=== PATIENT | male | born 1955 | race Caucasian/White ===

== ENCOUNTER 2024-11-27 23:12 | Emergency (ER) | payer OTHER ==
[2024-11-27] MEDS ORDERED: WATER FOR INJ,STERILE 10 ML ONE (23:15)
[2024-11-27] MEDS ORDERED: ZIPRASIDONE MESYLA 20 MG/VIAL IM ONE (23:15)
--- OUTSIDE RECORDS SUMMARY | 2024-11-27 23:17 | XMS REPORT | Continuity of Care Document ---
Author Name Unknown Address [address] [facility] [address] [place] [address] [facility] Address [address] [facility] [address] [place] [address] Care Team Providers Care Lubrication Servicer Name Role Phone Pcp, Pcp Primary Care Physician Unavailab OBEY Tafoya Attending Clinician Unavail able Saba Miller MD, Vincent Wood Attending Clinic isela Mark COLBERT, Chriss Attending Clinician + Peri Chilel MD Attending Clinician Obey Pineda MD Attending Clinician [phone] Vinicius Francois Rahil Attending Clinician Unavail able Tariq Martinez Attending Clinician Unavailable PERI CHILEL Admitting Clinician Un available Peri Chilel MD Admitting Clinician [facility] Rahil Admitting Clinician Unavail able Tariq Martinez Admitting Clinician Unavailable Payers Payer Name Policy Type Policy Number Effective Date Expirati on Date Source [employer] [id number] 2024 00:00:00 [facility] [id number] Problems Condition Name Condition Details Condition Category Status Onset Date Resolution Date Last Treatment Date Treating Clinician Comments Source Toxic metabolic encephalop athy Toxic metabolic encephalop athy Disease Active 11-13 00:00: 00 Sathish Stratton 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 Disease Active 11-13 00:00: 00 Sathish Stratton Dementia with behavioral disturbanc e Dementia with behavioral disturbanc e Disease Active 11-07 00:00: 00 Sathish Stratton Complicate d UTI (urinary tract infection) Complicate d UTI (urinary tract infection) Disease Active 11-07 00:00: 00 Sathish Stratton Corneal ulcer Corneal ulcer Disease Active 11-06 00:00: 00 Sathish Stratton Gastroesop hageal reflux disease Gastroesop hageal reflux disease Disease Active 11-06 00:00: 00 Sathish Strtaton History of CVA (cerebrova scular accident) History of CVA (cerebrova scular accident) Disease Active 11-06 00:00: 00 Sathish Stratton Essential hypertensi on Essential hypertensi on Disease Active 09-20 00:00: 00 Sathish Stratton Peripheral vascular disease Peripheral vascular disease Disease Active 09-20 00:00: 00 Sathish Stratton Hypopyon of right eye Hypopyon of right eye Disease Resolve d 11-07 00:00: 00 2024-11-13 00:00:00 2024-11-13 16:00:02 Sathish Stratton Medication management Medication management Disease Resolve d 11-06 00:00: 00 2024-11-13 00:00:00 2024-11-13 16:00:07 Sathish Stratton ETOH abuse ETOH abuse Disease Resolve d 09-20 00:00: 00 2024-11-13 00:00:00 2024-11-13 15:59:58 Sathish Stratton Allergies, Adverse Reactions, Alerts Allergy Name Allergy Type Status Severity Reaction(s) Onset Date Inactive Date Treating Clinician Comments Source No Known Allergie s DA Active U 2015-04 015 00:00: 00 [facility] Social History Social Habit Start Date Stop Date Quantity Comments Source Gender identity 2024-08-30 09:31:17 Irina Stratton Sexual orientation [facility] Alcoholic beverage intake 2024-11-14 00:00:00 2024-11-14 00:00:00 [facility] Alcohol Comment 2024-11-08 00:00:00 2024-11-08 00:00:00 pt so confused and speech was incomprehensible [facility] History of Social function 2024-11-06 00:00:00 2024-11-06 00:00:00 [facility] Sex 2024-09-03 12:39:14 2024-09-03 12:39:14 Male (finding) [facility] Smoking Status Start Date Stop Date Source Tobacco smoking consumption unknown [facility] Medications Ordered Medication Name Filled Medication Name Start Date Stop Date Current Medication? Ordering Clinician Indication Dosage Frequency Signature (SIG) Comments Components Source omeprazole (PriLOSEC) [address] capsule omeprazole (PriLOSEC) [address] capsule 11-14 15:51: 49 11-14 00:00 :00 No 20mg Take 20 mg by mouth in the morning. Take before meals. Sathish burgos [facility] magnesium oxide (Mag-Ox) 400 (240 Mg) MG tablet magnesium oxide (Mag-Ox) 400 (240 Mg) MG tablet 11-14 15:51: 49 11-14 00:00 :00 No 400mg Q.5D Take 400 mg by mouth in the morning and 400 mg in the evening. Sathish [facility] ciprofloxac in (Ciloxan) 0.3 % ophthalmic solution ciprofloxac in (Ciloxan) 0.3 % ophthalmic solution 11-14 15:51: 49 11-14 00:00 :00 No 2[drp] Q4H Administer 2 drops into affected eye(s) every 4 hours. Sathish [facility] neomycin-po lymyxin-dex AMETHasone (Maxitrol) 0.1 % ophthalmic suspension neomycin-po lymyxin-dex AMETHasone (Maxitrol) 0.1 % ophthalmic suspension 11-14 15:51: 49 11-14 00:00 :00 No 1[drp] Q4H Administer 1 drop into the right eye every 4 hours. Sathish Hunt [facility] enoxaparin (Lovenox) 40 mg/0.4mL injection enoxaparin (Lovenox) 40 mg/0.4mL injection 11-14 15:51: 49 11-14 00:00 :00 No 40mg QD Inject 40 mg under the skin 1 time each day. Sathish Stratton LORazepam (Ativan) 1 MG tablet LORazepam (Ativan) 1 MG tablet 11-14 15:51: 49 11-14 00:00 :00 No 1mg Q.5D Take 1 mg by mouth in the morning and 1 mg in the evening. Sathish Stratton megestrol (Megace) 40 MG tablet megestrol (Megace) 40 MG tablet 11-14 15:51: 49 11-14 00:00 :00 No 40mg Q.5D Take 40 mg by mouth 2 times a day. Sathish Stratton nystatin (Nystop) [id number] UNIT/GM powder nystatin (Nystop) [id number] UNIT/GM powder 11-14 15:51: 49 11-14 00:00 :00 No 1{appli cation} Q.5D Apply 1 Applicatio n topically in the morning and 1 Applicatio n in the evening. To Groin. Sathish Stratton acetaminoph en (Tylenol) 325 MG tablet acetaminoph en (Tylenol) 325 MG tablet 11-14 15:51: 49 11-14 00:00 :00 No 325mg Q4H Take 325 mg by mouth every 4 hours if needed for fever. Sathish Stratton melatonin 3 MG tablet melatonin 3 MG tablet 11-14 15:51: 45 Yes 3mg QD Take 3 mg by mouth as needed at bedtime for sleep. Sathish Stratton lamoTRIgine (LaMICtal) 50 mg half tablet lamoTRIgine (LaMICtal) 50 mg half tablet 11-14 15:51: 45 Yes 50mg Q.5D Take 50 mg by mouth in the morning and 50 mg in the evening. Sathish Stratton gabapentin (Neurontin) 300 MG capsule gabapentin (Neurontin) 300 MG capsule 11-14 15:51: 45 Yes 300mg Q.5D Take 300 mg by mouth in the morning and 300 mg in the evening. Sathish Stratton acetaminoph en (Tylenol 8 Hour) 650 MG ER tablet acetaminoph en (Tylenol 8 Hour) 650 MG ER tablet 11-14 15:51: 45 Yes 650mg Q4H Take 650 mg by mouth every 4 hours if needed for mild pain (1-3). Do not crush, chew, or split. Sathish Stratton OLANZapine (ZyPREXA) 5 mg in sterile water injection OLANZapine (ZyPREXA) 5 mg in sterile water injection 11-14 00:15: 00 11-14 00:37 :00 No 5mg 5 mg, Intramuscu lar, Once, On Mon11/14/24 at 0015, For 1 dose, Each 10 mg vial to be reconstitu shweta with 2.1 mL sterile water for injection to give a concentrat ion of approx 5 mg/mL. Use immediatel y. Discard unused portion. Sathish Stratton losartan (Cozaar) 50 MG tablet losartan (Cozaar) 50 MG tablet 11-14 00:00: 00 12-14 23:59 :00 No 50mg QD Take 1 tablet by mouth 1 time each day. Sathish Stratton atropine 1 % ophthalmic solution atropine 1 % ophthalmic solution 11-14 00:00: 00 12-14 23:59 :00 No 1[drp] Q.5D Administer 1 drop into the right eye in the morning and 1 drop in the evening. Sathish Stratton dorzolamide -timolol (Cosopt) 2-0.5 % ophthalmic solution dorzolamide -timolol (Cosopt) 2-0.5 % ophthalmic solution 11-14 00:00: 00 12-14 23:59 :00 No 1[drp] Q.5D Administer 1 drop into both eyes in the morning and 1 drop in the evening. Sathish Stratton moxifloxaci n (Vigamox) 0.5 % ophthalmic solution moxifloxaci n (Vigamox) 0.5 % ophthalmic solution 11-14 00:00: 00 11-24 23:59 :00 No 1[drp] Q6H Administer 1 drop into the right eye in the morning and 1 drop at noon and 1 drop in the evening and 1 drop before bedtime. Do all this for 10 days. Sathish Stratton tobramycin 0.3 % solution 5 mL with tobramycin 80 MG/2ML solution 80 mg tobramycin 0.3 % solution 5 mL with tobramycin 80 MG/2ML solution 80 mg 11-14 00:00: 00 11-24 23:59 :00 No [id number] 1[drp] Q6H Administer 1 drop into the right eye in the morning and 1 drop at noon and 1 drop in the evening and 1 drop before bedtime. Do all this for 10 days. Sathish Stratton vancomycin (Vancocin) 50 mg/mL ophthalmic solution vancomycin (Vancocin) 50 mg/mL ophthalmic solution 11-14 00:00: 00 11-24 23:59 :00 No 1[drp] Q6H Administer 1 drop into affected eye(s) in the morning and 1 drop at noon and 1 drop in the evening and 1 drop before bedtime. Do all this for 10 days. Sathish Stratton erythromyci n (Romycin) 5 mg/g ophthalmic ointment erythromyci n (Romycin) 5 mg/g ophthalmic ointment 11-14 00:00: 00 11-21 23:59 :00 No 1{appli cation} Q.25D Apply 1 Applicatio n to right eye in the morning and 1 Applicatio n at noon and 1 Applicatio n in the evening and 1 Applicatio n before bedtime. Do all this for 28 doses. Apply Amount per Dose: 0.5 inch (~1 cm) per dose. Sathish Stratton OLANZapine (ZyPREXA) 5 mg in sterile water injection OLANZapine (ZyPREXA) 5 mg in sterile water injection 11-12 16:00: 00 11-12 23:09 :00 No 5mg 5 mg, Intramuscu lar, Once, On Mon11/12/24 at 1600, For 1 dose, Each 10 mg vial to be reconstitu shweta with 2.1 mL sterile water for injection to give a concentrat ion of approx 5 mg/mL. Use immediatel y. Discard unused portion. Sathish Stratton OLANZapine (ZyPREXA) 10 mg in sterile water injection OLANZapine (ZyPREXA) 10 mg in sterile water injection 11-11 22:15: 00 11-11 22:47 :00 No 10mg 10 mg, Intramuscu lar, Once, On Mon11/11/24 at 2215, For 1 dose, Each 10 mg vial to be reconstitu shweta with 2.1 mL sterile water for injection to give a concentrat ion of approx 5 mg/mL. Use immediatel y. Discard unused portion. Sathish Stratton phenazopyri dine (Pyridium) tablet 200 mg phenazopyri dine (Pyridium) tablet 200 mg 11-11 21:30: 00 11-11 21:53 :00 No 200mg 200 mg, Oral, Once, On Mon11/11/24 at 2130, For 1 dose Sathish Stratton ibuprofen tablet 800 mg ibuprofen tablet 800 mg 11-11 21:00: 00 11-11 21:53 :00 No 800mg 800 mg, Oral, Once, On Mon11/11/24 at 2100, For 1 dose Sathish Stratton tobramycin 13.57 mg/mL ophthalmic solution tobramycin 13.57 mg/mL ophthalmic solution 11-11 16:00: 00 Yes 1[drp] Q3H 1 drop, Right Eye, Every 3 hours, First dose (after last modificati on) on Mon11/11/24 at 1600, Suspected Indication (Select all that apply): Skin/Soft Tissue Infection Sathish Stratton vancomycin (Vancocin) 50 mg/mL ophthalmic solution 1 drop vancomycin (Vancocin) 50 mg/mL ophthalmic solution 1 drop 11-11 16:00: 00 Yes 1[drp] Q3H 1 drop, Right Eye, Every 3 hours, First dose (after last modificati on) on Mon11/11/24 at 1600, Please notify pharmacy 2 hours in advance of next dose needed. Sathish Stratton moxifloxaci n (Vigamox) 0.5 % ophthalmic solution 1 drop moxifloxaci n (Vigamox) 0.5 % ophthalmic solution 1 drop 11-11 16:00: 00 Yes 1[drp] Q3H 1 drop, Right Eye, Every 3 hours, First dose (after last modificati on) on Mon11/11/24 at 1600, Please notify pharmacy 2 hours in advance of next dose needed. Sathish Hunt [facility] OLANZapine (ZyPREXA) tablet 5 mg OLANZapine (ZyPREXA) tablet 5 mg 11-11 13:45: 00 11-11 14:18 :00 No 5mg 5 mg, Oral, Once, On Mon11/11/24 at 1345, For 1 dose Sathish Hunt [facility] OLANZapine (ZyPREXA) tablet 5 mg OLANZapine (ZyPREXA) tablet 5 mg 11-10 16:30: 00 11-10 16:25 :00 No 5mg 5 mg, Oral, Once, On Mon11/10/24 at 1630, For 1 dose Sathish Hunt [facility] dorzolamide -timolol (Cosopt) 2-0.5 % ophthalmic solution 1 drop dorzolamide -timolol (Cosopt) 2-0.5 % ophthalmic solution 1 drop 11-08 17:00: 00 Yes 1[drp] Q.5D 1 drop, Both Eyes, 2 times daily, First dose (after last modificati on) on Mon11/08/24 at 1700, Please notify pharmacy 2 hours in advance of next dose needed. Sathish Hunt [facility] sulfamethox azole-trime thoprim (Bactrim DS) 800-160 MG per tablet 160 mg sulfamethox azole-trime thoprim (Bactrim DS) 800-160 MG per tablet 160 mg 11-08 14:00: 00 11-13 16:05 :40 No 160mg Q12H 160 mg, Oral, Every 12 hours, First dose on Mon11/08/24 at 1400, For 15 doses, Suspected Indication (Select all that apply): Urinary Tract Infection Sathish Hunt [facility] thiamine (Vitamin B-1) tablet 100 mg thiamine (Vitamin B-1) tablet 100 mg 11-08 13:00: 00 Yes 100mg QD 100 mg, Oral, Daily, First dose (after last reorder) on Mon11/08/24 at 1300 Sathish Stratton erythromyci n (Romycin) 5 mg/g ophthalmic ointment 1 Application erythromyci n (Romycin) 5 mg/g ophthalmic ointment 1 Application 11-08 13:00: 00 11-21 12:59 :00 No 1{appli cation} Q.25D 1 Applicatio n, Right Eye, 4 times daily, First dose on Mon11/08/24 at 1300, For 52 doses, Apply Amount per Dose: 0.5 inch (~1 cm) per dose. Sathish Stratton tobramycin 13.57 mg/mL ophthalmic solution tobramycin 13.57 mg/mL ophthalmic solution 11-08 13:00: 00 11-11 14:56 :40 No 1[drp] Q2H 1 drop, Right Eye, Every 2 hours, First dose on Mon11/08/24 at 1300, Suspected Indication (Select all that apply): Skin/Soft Tissue Infection Sathish Stratton vancomycin (Vancocin) 50 mg/mL ophthalmic solution 1 drop vancomycin (Vancocin) 50 mg/mL ophthalmic solution 1 drop 11-08 13:00: 00 11-11 14:56 :40 No 1[drp] Q2H 1 drop, Right Eye, Every 2 hours, First dose (after last modificati on) on Mon11/08/24 at 1300, Please notify pharmacy 2 hours in advance of next dose needed. Sathish Stratton moxifloxaci n (Vigamox) 0.5 % ophthalmic solution 1 drop moxifloxaci n (Vigamox) 0.5 % ophthalmic solution 1 drop 11-08 13:00: 00 11-11 14:55 :56 No 1[drp] Q2H 1 drop, Right Eye, Every 2 hours, First dose (after last modificati on) on Mon11/08/24 at 1300, Please notify pharmacy 2 hours in advance of next dose needed. Sathish Stratton dorzolamide -timolol (Cosopt) 2-0.5 % ophthalmic solution 1 drop dorzolamide -timolol (Cosopt) 2-0.5 % ophthalmic solution 1 drop 11-07 17:00: 00 11-08 11:58 :16 No 1[drp] Q.5D 1 drop, Right Eye, 2 times daily, First dose on Mon11/07/24 at 1700 Sathish Stratton ciprofloxac in (Cipro) tablet 500 mg ciprofloxac in (Cipro) tablet 500 mg 11-07 13:00: 00 11-12 15:26 :50 No 500mg Q.5D 500 mg, Oral, Every 12 hours scheduled, First dose on Mon11/07/24 at 1300, For 7 days, Separate at least 2 hours before or 6 hours after antacids or other products containing calcium, iron, or zinc., Suspected Indication (Select all that apply): Urinary Tract Infection, On hold since Mon11/08/2024 at 1353 until manually unheld Sathish Stratton OLANZapine (ZyPREXA) 5 mg in sterile water injection OLANZapine (ZyPREXA) 5 mg in sterile water injection 11-07 08:15: 00 11-07 08:15 :00 No 5mg 5 mg, Intramuscu lar, Once, On Mon11/07/24 at 0815, For 1 dose, Each 10 mg vial to be reconstitu shweta with 2.1 mL sterile water for injection to give a concentrat ion of approx 5 mg/mL. Use immediatel y. Discard unused portion. Sathish Stratton QUEtiapine (SEROquel) tablet 25 mg QUEtiapine (SEROquel) tablet 25 mg 11-06 21:00: 00 Yes 25mg 25 mg, Oral, Nightly, First dose on Mon11/06/24 at 2100 Sathish Stratton OLANZapine (ZyPREXA) tablet 5 mg OLANZapine (ZyPREXA) tablet 5 mg 11-06 11:30: 00 11-06 13:23 :00 No 5mg 5 mg, Oral, Once, On Mon11/06/24 at 1130, For 1 dose Sathish Stratton sodium chloride (NS) 0.9 % flush 10 mL sodium chloride (NS) 0.9 % flush 10 mL 11-06 09:00: 00 Yes 10mL Q.5D 10 mL, Intravenou s, Every 12 hours scheduled, First dose on Mon11/06/24 at 0900, Administer at least once every [facility] tamsulosin (Flomax) 24 hr capsule 0.4 mg tamsulosin (Flomax) 24 hr capsule 0.4 mg 11-06 09:00: 00 Yes .4mg QD 0.4 mg, Oral, Daily, First dose on Mon11/06/24 at 0900 [facility] losartan (Cozaar) tablet 50 mg losartan (Cozaar) tablet 50 mg 11-06 09:00: 00 Yes 50mg QD 50 mg, Oral, Daily, First dose on Mon11/06/24 at 0900 [facility] folic acid (Folvite) tablet 1 mg folic acid (Folvite) tablet 1 mg 11-06 09:00: 00 Yes 1mg QD 1 mg, Oral, Daily, First dose on Mon11/06/24 at 0900 [facility] clopidogrel (Plavix) tablet 75 mg clopidogrel (Plavix) tablet 75 mg 11-06 09:00: 00 Yes 75mg QD 75 mg, Oral, Daily, First dose on Mon11/06/24 at 0900 [facility] atorvastati n (Lipitor) tablet 40 mg atorvastati n (Lipitor) tablet 40 mg 11-06 09:00: 00 Yes 40mg QD 40 mg, Oral, Daily, First dose on Mon11/06/24 at 0900 [facility] amLODIPine (Norvasc) tablet 5 mg amLODIPine (Norvasc) tablet 5 mg 11-06 09:00: 00 Yes 5mg QD 5 mg, Oral, Daily, First dose on Mon11/06/24 at 0900 [facility] valACYclovi r (Valtrex) tablet 1,000 mg valACYclovi r (Valtrex) tablet 1,000 mg 11-06 09:00: 00 11-12 23:59 :00 No 1000mg [id number] 3D 1,000 mg, Oral, 3 times daily, First dose on Mon11/06/24 at 0900, For 21 doses, Infection Site: Retinitis [facility] thiamine (Vitamin B-1) tablet 100 mg thiamine (Vitamin B-1) tablet 100 mg 11-06 09:00: 00 11-08 12:48 :14 No 100mg QD 100 mg, Oral, Daily, First dose on Mon11/06/24 at 0900 [facility] aspirin chewable tablet 81 mg aspirin chewable tablet 81 mg 11-06 07:00: 00 Yes 81mg 81 mg, Oral, Every morning, First dose on Mon11/06/24 at 0700 [facility] senna-docus ate (Nimisha-Colac e) 8.6-50 mg per tablet 2 tablet senna-docus ate (Nimisha-Colac e) 8.6-50 mg per tablet 2 tablet 11-06 06:15: 00 Yes 2{tbl} Q12H 2 tablet, Oral, Every 12 hours, First dose on Mon11/06/24 at 0615 [facility] potassium chloride CR (Klor-Con M20) ER tablet 20 mEq potassium chloride CR (Klor-Con M20) ER tablet 20 mEq 11-06 06:05: 23 11-13 06:10 :10 No 20meq 20 mEq, Oral, As needed, Abnormal Lab Result, For NON-ICU Patients Only, Starting on Mon11/06/24 at 0605, Evaluate Potassium and Phosphorou s level prior to replacemen t. Potassium replacemen t; phosphorou s > 2.4 mg/dL or phosphorou s level not available: For K = 3.5 - 3.9 mEq/L: Replace with KCL 20 mEq. Recheck Potassium with next scheduled lab. For K = 3.1 - 3.4 mEq/L: Replace with KCL 40 mEq.? Recheck Potassium 4 hours after replacemen t. Potassium and Phosphorou s Replacemen t: For K = 3.5 - 4.5 mEq/L AND Phosphorou s 2 - 2.4 mg/dL:? Replace with 2 packets of Potassium phosphate/ sodium phosphate oral powder x 1 dose. For K = 3.5 - 4.5 mEq/L AND Phosphorou s 1.6 - 1.9 mg/dL:? Replace with 2 packets of Potassium phosphate/ sodium phosphate oral powder Q4H x 2 doses. For K = 3.1 - 3.4 mEq/L AND Phosphorou s 2 - 2.4 mg/dL: Replace with KCL 20 mEq PO/NJ AND Potassium Phosphate 15 mMol IVPB over 4 hours. For K = 3.1 - 3.4 mEq/L AND Phosphorou s 1.6 - 1.9 mg/dL: Replace with Potassium Phosphate 30 mMol IVPB over 4 hours. Recheck Potassium and Phosphorou s levels 4 hours after replacemen t complete.N otify MD for K < 3.1 mEq/L or Phosphorou s < 1.6 mg/dL prior to replacemen t. *Use PO or NJ administra tion unless patient is first 12 hours post-op, active GI bleed, acute arrhythmia s, ischemic bowel or NPO. Do Not Crush the ER tablets. DO NOT replace if patient is on dialysis, temperatur e < 35 Celsius, or serum creatinine > 2.0 mg/dL or GFR < 45 mL/min. DO NOT CRUSH.? For patients able to take medication s orally or via feeding tube >/= 14 [place], may dissolve each 20 mEq tablet in 4 oz of water.? Allow about 2 minutes for the tablets to disintegra te.? Stir before giving to prepare slurry and administer .? Please exclude patient's with feeding tube less than 14 [place]i (Dobhoff, J-tube, etc) and pediatric and patients. Do not crush or chew. Sathish Stratton oxyCODONE (Roxicodone ) solution 2.5 mg oxyCODONE (Roxicodone ) solution 2.5 mg 11-06 06:05: 15 11-11 06:04 :15 No 2.5mg Q6H 2.5 mg, Oral, Every 6 hours PRN, moderate pain (4-6), Pain Score 4-6, Starting on Mon11/06/24 at 0605, For 5 days, Hold for sedation and call MD. Sathish Hunt [facility] acetaminoph en (Tylenol) tablet 650 mg acetaminoph en (Tylenol) tablet 650 mg 11-06 06:05: 09 Yes 650mg Q6H 650 mg, Oral, Every 6 hours PRN, mild pain (1-3), Starting on Mon11/06/24 at 0605, Max acetaminop hen from all sources (geriatric ) = 3,250 mg in 24 hrs. Sathish Hunt [facility] naloxone (Narcan) injection 0.04 mg naloxone (Narcan) injection 0.04 mg 11-06 06:04: 49 Yes .04mg 0.04 mg, Intravenou s, As needed, opioid reversal, every 2 mins PRN for Narcotic Reversal, Starting on Mon11/06/24 at 0604, For 8 doses, Give up to 8 doses of 0.04 mg as needed to reverse over sedation. Keep available for immediate use. Call ordering physician STAT. (Dilute 0.4 mg/mL in 9 mL of saline) Sathish Hunt [facility] glucagon injection 1 mg glucagon injection 1 mg 11-06 06:00: 32 Yes 1mg 1 mg, Intramuscu lar, As needed, For BG < 70 mg/dL if no IV access and patient is either Unconsciou s, unable to swallow or npo, Starting on Mon11/06/24 at 0600, For BG < 70 mg/dL if no IV access and patient is either Unconsciou s, unable to swallow or npo and notify MD. Sathish Hunt [facility] dextrose 50 % solution 25 g dextrose 50 % solution 25 g 11-06 06:00: 32 Yes 25g 25 g, Intravenou s, As needed, other, if Blood Glucose </= 50 mg/dL, Starting on Mon11/06/24 at 0600, If BG </=50 mg/dL, give 50 mL of D50W IV push STAT and notify MD. Sathish Hunt [facility] dextrose 50 % solution 12.5 g dextrose 50 % solution 12.5 g 11-06 06:00: 32 Yes 12.5g 12.5 g, Intravenou s, As needed, low blood sugar, if Blood Glucose 51- 69 mg/dL, Starting on Mon11/06/24 at 0600, For BG 51-69 mg/dL and patient UNCONSCIOU S OR UNABLE TO SWALLOW OR NPO: Give 25 mL of D50W IV push and notify MD. Sathish Stratton sodium chloride (NS) 0.9 % flush 10 mL sodium chloride (NS) 0.9 % flush 10 mL 11-06 06:00: 32 Yes 10mL 10 mL, Intravenou s, As needed, line care, Line Flush, Starting on Mon11/06/24 at 0600 Sathish Stratton atropine 1 % ophthalmic solution 1 drop atropine 1 % ophthalmic solution 1 drop 11-06 05:00: 00 Yes 1[drp] Q.5D 1 drop, Right Eye, 2 times daily, First dose on Mon11/06/24 at 0500 Sathish Stratton moxifloxaci n (Vigamox) 0.5 % ophthalmic solution 1 drop moxifloxaci n (Vigamox) 0.5 % ophthalmic solution 1 drop 11-06 05:00: 00 11-08 11:58 :16 No 1[drp] Q1H 1 drop, Right Eye, Every 1 hour, First dose on Mon11/06/24 at 0500 Sathish Stratton vancomycin (Vancocin) 50 mg/mL ophthalmic solution 1 drop vancomycin (Vancocin) 50 mg/mL ophthalmic solution 1 drop 11-06 05:00: 00 11-08 11:58 :16 No 1[drp] Q1H 1 drop, Right Eye, Every 1 hour, First dose on Mon11/06/24 at 0500 Sathish Stratton tobramycin 13.57 mg/mL ophthalmic solution tobramycin 13.57 mg/mL ophthalmic solution 11-06 05:00: 00 11-06 11:00 :00 No 1[drp] Q1H 1 drop, Right Eye, Every 1 hour, First dose on Mon11/06/24 at 0500, For 7 doses, Suspected Indication (Select all that apply): Skin/Soft Tissue Infection Sathish Stratton erythromyci n (Romycin) 5 mg/g ophthalmic ointment 1 Application erythromyci n (Romycin) 5 mg/g ophthalmic ointment 1 Application 11-06 04:05: 11-07 16:59 :00 No 1{appli cation} Q.25D 1 Applicatio n, Right Eye, 4 times daily, First dose on Mon11/06/24 at 0405, For 7 doses, Apply Amount per Dose: 0.5 inch (~1 cm) per dose. Sathish Stratton ondansetron (Zofran) injection 4 mg ondansetron (Zofran) injection 4 mg 11-06 01:15: 11-06 01:27 :00 No 4mg 4 mg, Intravenou s, Once, On Mon11/06/24 at 0115, For 1 dose, Administer IVP. Sathish Stratton morphine PF injection 4 mg morphine PF injection 4 mg 11-06 01:15: 11-06 01:28 :00 No 4mg 4 mg, Intravenou s, Once, On Mon11/06/24 at 011, For 1 dose, Administer IVP. Sathish Stratton thiamine (Vitamin B-1) 100 MG tablet thiamine (Vitamin B-1) 100 MG tablet 09-23 00:00: 00 Yes 100mg QD Take 100 mg by mouth 1 time each day. Sathish Stratton clopidogrel (Plavix) 75 MG tablet clopidogrel (Plavix) 75 MG tablet 09-22 00:00: 00 Yes 75mg QD Take 75 mg by mouth 1 time each day. Sathish Stratton amLODIPine (Norvasc) 2.5 MG tablet amLODIPine (Norvasc) 2.5 MG tablet 09-19 00:00: 00 Yes 2.5mg QD Take 2.5 mg by mouth 1 time each day. Sathish Stratton atorvastati n (Lipitor) 40 MG tablet atorvastati n (Lipitor) 40 MG tablet 09-19 00:00: 00 Yes 40mg Take 40 mg by mouth in the evening. Sathish Stratton QUEtiapine (SEROquel) 50 MG tablet QUEtiapine (SEROquel) 50 MG tablet 09-19 00:00: 00 Yes 50mg Q.5D Take 50 mg by mouth 2 times a day as needed. Sathish Stratton tamsulosin (Flomax) 0.4 MG 24 hr capsule tamsulosin (Flomax) 0.4 MG 24 hr capsule 09-19 00:00: 00 Yes .4mg Take 0.4 mg by mouth at bedtime. Sathish [facility] losartan (Cozaar) 50 MG tablet losartan (Cozaar) 50 MG tablet 09-19 00:00: 00 11-14 00:00 :00 No 50mg Q.5D Take 50 mg by mouth in the morning and 50 mg in the evening. Sathish [facility] folic acid (Folvite) 1 MG tablet folic acid (Folvite) 1 MG tablet 09-09 00:00: 00 Yes 1mg QD Take 1 mg by mouth 1 time each day. Sathish [facility] senna-docus ate (Senna-S) 8.6-50 mg tablet senna-docus ate (Senna-S) 8.6-50 mg tablet 09-09 00:00: 00 Yes 2{tbl} Q12H Take 2 tablets by mouth in the morning and 2 tablets in the evening. Sathish [facility] aspirin 81 MG chewable tablet aspirin 81 MG chewable tablet 09-08 00:00: 00 11-14 00:00 :00 No 81mg Chew 81 mg every morning. [facility] Vital Name Observation Time Observation Value Comments S ource Heart rate 2024-11-14 11:45:51 69 /min Betsy mancini [facility] Respiratory rate 2024-11-14 11:45:51 20 /min [facility] Oxygen saturation in Arterial blood by Pulse oximetry 2024-11-14 11:45:51 99 /min [facility] Systolic blood pressure 2024-11-14 11:44:19 130 mm[Hg] [facility] Diastolic blood pressure 2024-11-14 11:44:19 72 mm[Hg] [facility] Body temperature 2024-11-14 11:44:[address] [facility] Body height 2024-11-05 21:52:00 185.4 cm Prasanna benz [facility] Body weight 2024-11-05 21:52:00 78.7 kg [facility] BMI 2024-11-05 21:52:00 22.89 kg/m2 [facility] Heart rate 2024-11-14 11:45:51 69 /min [facility] Respiratory rate 2024-11-14 11:45:51 20 /min [facility] Oxygen saturation in Arterial blood by Pulse oximetry 2024-11-14 11:45:51 99 /min [facility] Systolic blood pressure 2024-11-14 11:44:19 130 mm[Hg] [facility] Diastolic blood pressure 2024-11-14 11:44:19 72 mm[Hg] [facility] Body temperature 2024-11-14 11:44:[address] [facility] Body height 2024-11-05 21:52:00 185.4 cm [facility] Body weight 2024-11-05 21:52:00 78.7 kg [facility] BMI 2024-11-05 21:52:00 22.89 kg/m2 [facility] Procedures Procedure Date / Time Performed Performing Clinician Source AUTOMATED DIFFERENTIAL 2024-11-13 04:01:00 Peri Headley [facility] BASIC METABOLIC PANEL 2024-11-13 04:01:00 Peri Chilel [facility] MAGNESIUM LEVEL 2024-11-13 04:01:00 Tomás Chilel [facility] PHOSPHORUS LEVEL 2024-11-13 04:01:00 Rigo Chilel [facility] COMPLETE BLOOD COUNT W/DIFF AND PLATELET 2024-11-13 04:01:00 Peri Chilel [facility] COMPLETE BLOOD COUNT 2024-11-13 04:01:[address] [facility] AUTOMATED DIFFERENTIAL 2024-11-12 04:31:00 Peri Headley [facility] BASIC METABOLIC PANEL 2024-11-12 04:31:[address] [facility] MAGNESIUM LEVEL 2024-11-12 04:31:[address] [facility] PHOSPHORUS LEVEL 2024-11-12 04:31:[address] [facility] COMPLETE BLOOD COUNT W/DIFF AND PLATELET 2024-11-12 04:31:[address] [facility] COMPLETE BLOOD COUNT 2024-11-12 04:31:[address] [facility] CT BRAIN WO IV CONTRAST 2024-11-11 20:03:[address] [facility] ECG 12-LEAD 2024-11-11 14:35:[address] [facility] REFLEX MAN DIFF AND MORPH - DO NOT ORDER 2024-11-11 03:21:[address] [facility] BASIC METABOLIC PANEL 2024-11-11 03:21:[address] [facility] MAGNESIUM LEVEL 2024-11-11 03:21:00 Tomás Chilel [facility] PHOSPHORUS LEVEL 2024-11-11 03:21:[address] [facility] COMPLETE BLOOD COUNT W/DIFF AND PLATELET 2024-11-11 03:21:[address] [facility] AUTOMATED DIFFERENTIAL 2024-11-11 03:21:[address] [facility] COMPLETE BLOOD COUNT 2024-11-11 03:21:[address] [facility] AUTOMATED DIFFERENTIAL 2024-11-10 06:12:[address] [facility] BASIC METABOLIC PANEL 2024-11-10 06:12:[address] [facility] MAGNESIUM LEVEL 2024-11-10 06:12:00 Tomás Chilel [facility] COMPLETE BLOOD COUNT W/DIFF AND PLATELET 2024-11-10 06:12:[address] [facility] COMPLETE BLOOD COUNT 2024-11-10 06:12:[address] [facility] PHOSPHORUS LEVEL 2024-11-10 01:12:00 Rigo Chilel [facility] REFLEX MAN DIFF AND MORPH - DO NOT ORDER 2024-11-09 06:20:00 Peri Chilel [facility] BASIC METABOLIC PANEL 2024-11-09 06:20:[address] [facility] MAGNESIUM LEVEL 2024-11-09 06:20:00 Tomás Chilel [facility] COMPLETE BLOOD COUNT W/DIFF AND PLATELET 2024-11-09 06:20:00 Peri Chilel [facility] AUTOMATED DIFFERENTIAL 2024-11-09 06:20:[address] [facility] COMPLETE BLOOD COUNT 2024-11-09 06:20:[address] [facility] PHOSPHORUS LEVEL 2024-11-09 01:04:[address] [facility] AUTOMATED DIFFERENTIAL 2024-11-08 05:06:[address] [facility] BASIC METABOLIC PANEL 2024-11-08 05:06:[address] [facility] MAGNESIUM LEVEL 2024-11-08 05:06:[address] [facility] PHOSPHORUS LEVEL 2024-11-08 05:06:[address] [facility] COMPLETE BLOOD COUNT W/DIFF AND PLATELET 2024-11-08 05:06:[address] [facility] COMPLETE BLOOD COUNT 2024-11-08 05:06:[address] [facility] CHLAMYDIA/NEISSERIA GONORRHOEAE RNA, TMA, UROGENITAL 2024-11-07 15:47:[address] [facility] REFLEX MAN DIFF AND MORPH - DO NOT ORDER 2024-11-07 15:38:[address] [facility] COMPREHENSIVE METABOLIC PANEL 2024-11-07 15:38:[address] [facility] LACTIC ACID LEVEL 2024-11-07 15:38:[address] [facility] MAGNESIUM LEVEL 2024-11-07 15:38:00 Tomás Chilel [facility] PHOSPHORUS LEVEL 2024-11-07 15:38:[address] [facility] COMPLETE BLOOD COUNT W/DIFF AND PLATELET 2024-11-07 15:38:[address] [facility] AUTOMATED DIFFERENTIAL 2024-11-07 15:38:[address] [facility] HIV 4TH GEN WITH REFLEX 2024-11-07 15:38:[address] [facility] RPR WITH REFLEXES 2024-11-07 15:38:[address] [facility] COMPLETE BLOOD COUNT 2024-11-07 15:38:[address] [facility] URINE CULTURE 2024-11-07 05:24:[address] [facility] UA WITH CULTURE IF INDICATED 2024-11-07 05:24:[address] [facility] POC GLUCOSE UNSOLICITED RESULTS 2024-11-06 11:01:[address] [facility] ANAEROBIC CULTURE 2024-11-06 02:08:[address] [facility] MISCELLANEOUS TEST 2024-11-06 02:08:[address] [facility] VARICELLA ZOSTER VIRUS PCR QUALITATIVE 2024-11-06 02:08:[address] [facility] FUNGAL CULTURE W/SMEAR 2024-11-06 02:08:[address] [facility] WOUND CULTURE W/GRAM STAIN, NON-SURGICAL 2024-11-06 01:02:[address] [facility] Gram Stain 2024-11-06 00:00:00 [facility] Culture: Acanthamoeba and Naegleria 2024-11-06 00:00:00 [facility] BASIC METABOLIC PANEL 2024-11-05 23:13:[address] [facility] COMPLETE BLOOD COUNT W/DIFF AND PLATELET 2024-11-05 23:13:[address] [facility] COMPLETE BLOOD COUNT 2024-11-05 23:13:[address] [facility] AUTOMATED DIFFERENTIAL 2024-11-05 23:13:00 Ewelina Wood [facility] POCT Glucose [facility] Fungal Culture w/Smear Memor ial [facility] Plan of Care Planned Activity Planned Date Details Comments Source Encounters Start Date/Time End Date/Time Encounter Type Admission Type Attending Clinicians Care Facility Care Department Encounter ID Source 2024-11-05 21:55:00 2024-11-14 15:51:00 Inpatient Emergency OBEY PINEDA [facility] General Medicine [id number] [facility] 2024-11-05 21:55:00 2024-11-14 15:51:00 Hospital Encounter Vincent Kessler Mohammed Garcia, Michael Alexander Molloy, Andrew Brent [facility] [id number] Sathish burgos [facility] 2024-10-18 16:59:00 2024-11-05 21:10:00 Inpatient 3 Vinicius Francois [facility] [id number] [facility] 2023-04-11 10:47:00 2023-04-11 13:23:00 Inpatient EM Candice nta, Tariq [facility] [id number] [facility] Results Test Description Test Time Test Comments Results Result Co mments Source [facility] 12 [id number] 10:33:07* Test Item Value Reference Range Interpretation Comme nts Ventricular Rate (test code = 1529674837) BPM Atrial Rate (test code = 2724428964) BPM VA Interval (test code = 7172553587) 186 ms QRS Duration (test code = 5334255913) 100 ms QT/QTc (test code = 7248631136) 372 ms QTc Calculation (test code = 9884027094) 462 ms P-[place] (test code = 6580529040) degrees R-[place] (test code = 7420736033) degrees T-[place] (test code = 9039070695) degrees IMP (test code = IMP) PXN (test code = PXN) [facility] WO IV [id number] 22:00:05EXAM: CT BRAIN WITHOUT CONTRAST DATE: 11/11/2024 19:58 INDICATION: AMS ? COMPARISON: None. TECHNIQUE:Axial CT images of the brain were obtained. Sagittal and coronalreformats.IV contrast: NoneDLP: Refer to CT protocol form FINDINGS: There is no edema, hemorrhage, mass lesion or other acute intracranialabnormality. Extensive area of hypoattenuation in observed in the left parietal occipital andtemporal lobes associated with mild secondary enlargement of the posterior leftlateral ventricle, suggesting encephalomalacia. The ventricles and sulci are enlarged from chronic brain parenchymal volumeloss. Periventricular white matter hypoattenuation is nonspecific but likelyrepresents chronic microvascular ischemic changes. The skull base, calvarium, and included facial bones are unremarkable. Mildmucosal thickening in bilateral frontal sinuses and anterior ethmoid cells. IMPRESSION:* ?No acute intracranial abnormality.* ?Ill-defined area of hypoattenuation in the left parietal occipital andtemporal lobes associated with volume loss and secondary enlargement of the leftlateral ventricle suggesting encephalomalacia.* ?Generalized cerebral volume loss with chronic small vessel disease.. Report finalized by: Chanda Mederos MD 11/11/2024 22:00Chanda Lemus MD - 11/11/2024 EXAM: CT BRAIN WITHOUTCONTRASTDATE: 11/11/2024 19:58INDICATION: AMS COMPARISON: None.TECHNIQUE: Axial CT images of the brain were obtained. Sagittal and coronalreformats.IV contrast: NoneDLP: Refer to CT protocol formFINDINGS:There is no edema, hemorrhage, mass lesion or other acute intracranialabnormality. Extensive areaof hypoattenuation in observed in the left parietal occipital andtemporal lobes associated with mild secondary enlargement of the posterior leftlateral ventricle, suggesting encephalomalacia.The ventricles and sulci are enlarged from chronic brain parenchymal volumeloss. Periventricular white matter hypoattenuation is nonspecific but likelyrepresents chronic microvascular ischemic changes. The skull base, calvarium, and included facial bones are unremarkable. Mildmucosal thickening in bilateralfrontal sinuses and anterior ethmoid cells.IMPRESSION:* No acute intracranial abnormality.* Ill-defined area of hypoattenuation in the left parietal occipital andtemporal lobes associated with volumeloss and secondary enlargement of the leftlateral ventricle suggesting encephalomalacia.* Generalized cerebral volume loss with chronic small vessel disease..Report finalized by: Chanda Mederos MD 11/11/2024 22:00[facility] EpicVaricella Zoster Virus PCR Qualitative 2024-11-07 11:17:25* Test Item Value Reference Range Interpretation Comme nts VZV PCR (test code = 48306-2) Not Detected Not Detected MANUEL (test code = MANUEL) Lab Interpretation (test cod e = 75073-7) Normal [facility] [id number] 11:07:02* Test Item Value Reference Range Interpretation Comme nts POC Glu (test code = 61002-8) 100 mg/dL 70-99 H POC Performing Location (cyrus t code = 6104488326) R1 COU Lab Interpretation (test cod e = 88422-0) Abnormal LIZZIE Dsouza W/RFL [id number] 09:49:00* Test Item Value Reference Range Interpretation Comme nts COLOR (test code = 70803885) YELLOW YELLOW N APPEARANCE (test code = 58036438) TURBID CLEAR A SPECIFIC GRAVITY (test code = 06849780) 1.010 1.001-1.035 N PH (test code = 05473460) > OR = 9.0 5.0-8.0 A GLUCOSE (test code = 42592626) NEGATIVE NEGATIVE N BILIRUBIN (test code = 73534110) NEGATIVE NEGATIVE N KETONES (test code = 33063835) NEGATIVE NEGATIVE N OCCULT BLOOD (test code = 75693768) 2+ NEGATIVE A PROTEIN (test code = 30260584) TRACE NEGATIVE A NITRITE (test code = 75272053) NEGATIVE NEGATIVE N LEUKOCYTE ESTERASE (test code = 33634257) TRACE NEGATIVE A WBC (test code = 45715577) 0-5 /HPF 0-5 N RBC (test code = 51845639) 3-10 /HPF 0-2 A SQUAMOUS EPITHELIAL CELLS (test code = 06359180) NONE SEEN /HPF <=5 N BACTERIA (test code = 22393433) FEW /HPF NONE SEEN A TRIPLE PHOSPHATE CRYSTALS (test code = 98207889) MANY /HPF NONE OR FEW A HYALINE CAST (test code = 41538319) NONE SEEN /LPF NONE SEEN N NOTE (test code = 25163504) This urine was analyzed for the presence of WBC, RBC, bacteria, casts, and other formed elements. Only those elements seen were reported. [facility], UR [id number] 09:49:00* Test Item Value Reference Range Interpretation Comme nts SOURCE: (test code = 13436123) URINE STATUS: (test code = 56159745) FINAL RESULT: (test code = 17677637) Additional non-predominating organism(s) isolated. These organisms, commonly found on external and internal genitalia, are considered colonizers. No further testing performed. ISOLATE 1: (test code = 51550356) Corynebacterium sp., unable to rule out A [facility] [id number] 09:49:00* Test Item Value Reference Range Interpretation Comme nts REFLEXIVE URINE CULTURE (test code = 91128119) CULTURE I NDICATED - RESULTS TO FOLLOW [facility],COMP W/RFL [id number] 12:30:00* Test Item Value Reference Range Interpretation Comme nts COLOR (test code = 45888942) YELLOW YELLOW N APPEARANCE (test code = 60796830) TURBID CLEAR A SPECIFIC GRAVITY (test code = 99831648) 1.010 1.001-1.035 N PH (test code = 36130318) > OR = 9.0 5.0-8.0 A GLUCOSE (test code = 96378119) NEGATIVE NEGATIVE N BILIRUBIN (test code = 05203267) NEGATIVE NEGATIVE N KETONES (test code = 93834688) NEGATIVE NEGATIVE N OCCULT BLOOD (test code = 42322372) 2+ NEGATIVE A PROTEIN (test code = 35232359) TRACE NEGATIVE A NITRITE (test code = 63933692) NEGATIVE NEGATIVE N LEUKOCYTE ESTERASE (test code = 46976012) TRACE NEGATIVE A WBC (test code = 66481038) 0-5 /HPF 0-5 N RBC (test code = 83150754) 3-10 /HPF 0-2 A SQUAMOUS EPITHELIAL CELLS (test code = 13893437) NONE SEEN /HPF <=5 N BACTERIA (test code = 87917726) FEW /HPF NONE SEEN A TRIPLE PHOSPHATE CRYSTALS (test code = 31015818) MANY /HPF NONE OR FEW A HYALINE CAST (test code = 34421125) NONE SEEN /LPF NONE SEEN N NOTE (test code = 55267049) This urine was analyzed for the presence of WBC, RBC, bacteria, casts, and other formed elements. Only those elements seen were reported. [facility], UR [id number] 12:30:00* Test Item Value Reference Range Interpretation Comme nts SOURCE: (test code = 17569645) URINE STATUS: (test code = 67788787) PRELIMINARY RESULT: (test code = 35309414) Culture in progress [facility]ITALC[facility]URE [id number] 12:30:00* Test Item Value Reference Range Interpretation Comme nts REFLEXIVE URINE CULTURE (test code = 51907832) CULTURE I NDICATED - RESULTS TO FOLLOW [facility] HOSPITALCOMP META [id number] 15:14:00* Test Item Value Reference Range Interpretation Comme nts GLUCOSE (test code = 45223668) 113 mg/dL 65-99 H Fasting referenc e interval For someone without known diabetes, a glucose valuebetween 100 and 125 mg/dL is consistent withprediabetes and should be confirmed with afollow-up test. UREA NITROGEN (BUN) (test code = 56280510) 16 mg/dL 7-25 N CREATININE (test code = 53280497) 0.79 mg/dL 0.70-1.35 N EGFR (test code = 13662949) 97 mL/min/1.73m2 >=60 N BUN/CREATININE RATIO (test code = 86610351) SEE NOTE: (calc) 6-22 N Not Reported: BUN an d Creatinine are within reference range. SODIUM (test code = 00204116) 139 mmol/L 135-146 N POTASSIUM (test code = 16058453) 3.8 mmol/L 3.5-5.3 N CHLORIDE (test code = 49150955) 108 mmol/L 98-110 N CARBON DIOXIDE (test code = 63103949) 21 mmol/L 20-32 N CALCIUM (test code = 54906157) 9.5 mg/dL 8.6-10.3 N PROTEIN, TOTAL (test code = 42622819) 6.0 g/dL 6.1-8.1 L ALBUMIN (test code = 13857548) 3.6 g/dL 3.6-5.1 N GLOBULIN (test code = 07018640) 2.4 g/dL (calc) 1.9-3.7 N ALBUMIN/GLOBULIN RATIO (test code = 13530997) 1.5 (calc) 1.0-2.5 N BILIRUBIN, TOTAL (test code = 05240775) 0.3 mg/dL 0.2-1.2 N ALKALINE PHOSPHATASE (test code = 81491101) 89 U/L 35-144 N AST (test code = 32587094) 15 U/L 10-35 N ALT (test code = 03163291) 19 U/L 9-46 N [facility] HOSPITALPRO TIME WITH [id number] 15:14:00* Test Item Value Reference Range Interpretation Comme nts INR (test code = 92851307) 1.0 N Reference Range 0.9-1.1Moderate-intensity Warfarin Therapy 2.0-3.0Higher-intensity Warfarin Therapy 3.0-4.0 PT (test code = 70480768) 10.9 sec 9.0-11.5 N For additional information, please refer [email or web address]/faq/NUX910 (This link is being provided for informational/educational purposes only.) [facility]2024-10-19 15:14:00* Test Item Value Reference Range Interpretation Comme nts WHITE BLOOD CELL COUNT (test code = 40541557) 5.1 Thousand/uL 3.8-10.8 N RED BLOOD CELL COUNT (test code = 89626420) 3.61 Million/uL 4.20-5.80 L HEMOGLOBIN (test code = 67674178) 11.1 g/dL 13.2-17.1 L HEMATOCRIT (test code = 18366352) 33.9 % 38.5-50.0 L MCV (test code = 76401645) 93.9 fL 80.0-100.0 N MCH (test code = 70051128) 30.7 pg 27.0-33.0 N MCHC (test code = 36600841) 32.7 g/dL 32.0-36.0 N For adults, a sl ight decrease in the calculated MCHCvalue (in the range of 30 to 32 g/dL) is most likelynot clinically significant; however, it should beinterpreted with caution in correlation with otherred cell parameters and the patient's clinicalcondition. RDW (test code = 64255120) 12.1 % 11.0-15.0 N PLATELET COUNT (test code = 01903641) 323 Thousand/uL 140-400 N MPV (test code = 16852033) 10.7 fL 7.5-12.5 N ABSOLUTE NEUTROPHILS (test code = 67093324) 2331 cells/uL 4684-1632 N ABSOLUTE LYMPHOCYTES (test code = 76521151) 1953 cells/uL 850-3900 N ABSOLUTE MONOCYTES (test code = 47749888) 505 cells/uL 200-950 N ABSOLUTE EOSINOPHILS (test code = 68688737) 260 cells/uL 15-500 N ABSOLUTE BASOPHILS (test code = 35361356) 51 cells/uL 0-200 N NEUTROPHILS (test code = 29283081) 45.7 % N LYMPHOCYTES (test code = 88779747) 38.3 % N MONOCYTES (test code = 70021565) 9.9 % N EOSINOPHILS (test code = 40287233) 5.1 % N BASOPHILS (test code = 17041373) 1.0 % N [facility] HOSPITALPROTHROMBIN [id number] 10:19:00* Test Item Value Reference Range Interpretation Comme nts PROTHROMBIN TIME PATIENT (test code = PTP) 10.6 SECONDS 9.6-12.3 N INTERNATIONAL NORMAL RATIO (test code = INR) 0.91 Recommended INR range (warfarin therapy): 2.0 - 3.0INR (International Normalized Ratio) should beused when interpreting oral anticoaglulant therapy. For atrial fibrillation and treatment orprevention of deep vein thrombosis. Patients with Palmaz-Primo stent *: 2.0 - 3.0 Patients with mechanical heart valve *: 2.5 - 3.5 Patients with flex-stent *: 3.0 - 4.0(*) = penciller's suggested range Is patient on anticoagulants? No AnticoagulantsTHROMBOPLASTIN TIME PARTIAL 2023-04-11 10:19:00* Test Item Value Reference Range Interpretation Comme nts THROMBOPLASTIN TIME PARTIAL (test code = PTT) 27.8 SECONDS 22.5-35.3 N *Therapeutic ran ge for heparin: 58.7 - 87.5 The aPTT tet should not be used to evaluate low moleculat weight heparin anticoagulant therapy. Is patient on anticoagulants? No Anticoagulants- CTA CHEST FOR [id number] 10:04:00[facility] 1955 Sex: M Patient Name: MARLINE BLEVINS Unit No: [id number] EXAMS: CPT CODE: [id number] [place] [id number] Reason: syncope, R/O PE Clinical Indication: ; syncope, R/O PE Comparison: None TECHNIQUE: Sequential trans-axial images were obtained thru the chest and upper abdomen after administration of iodinated contrast. Coronal and sagittal reconstructions were obtained. Coronal and sagittal MIP images were performed and provided as separate series. 80 cc of Isovue 370 contrast material was used for the exam. All CT scans at this location are performed using dose optimization techniques as appropriate to perform the study. Radiation dose reduction technique was utilized including one or more of the following: Automated exposure control, adjustment of the mA and/or kV according to patient size and use of iterative reconstruction technique. CT Radiation Dose DLP 932.1 mGy-cm FINDINGS: LUNG PARENCHYMA AND PLEURA: There are no lung nodules. Centrilobular emphysematous changes are noted. Early fibroticchanges are noted in the dependent lower lobes.. There are no pleural effusions. There is no pneumothorax. AIRWAY: The central airway is patent.. MEDIASTINUM: No significant mediastinal lymphadenopathy. HEART: There is no evidence of RV strain. The cardiac chambers are otherwise unremarkable. There is no pericardial effusion. VASCULAR STRUCTURES: There are no segmental pulmonary emboli noted. The main, right and left pulmonary arteries are normal. The great vessels are unremarkable. The thoracic aorta is is free of aneurysm or dissection.. The superior vena cava is unremarkable. OSSEOUS STRUCTURES: There are no definite acute osseous abnormalities seen. Degenerative changes are noted in the thoracic spine. VISUALIZED UPPER ABDOMEN: The visualized upper abdomen is within normal limits. IMPRESSION: 1. No evidence of pulmonary emboli. 2. Emphysematous/fibrotic changes. Site Location: [address] FSED NAME: MARLINE BLEVINS [address] PHYS: Reese Turner [place] [address] : 1955 AGE: 68 SEX: M LOC: [place] PHONE #: [phone] EXAM DATE: 04/11/2023 STATUS: REG ER FAX #: RAD NO: DC Dt: PAGE 1 Signed Report (CONTINUED) Patient Name: MARLINE BLEVINS Unit No: [id number] EXAMS: CPT CODE: [id number] [place] [address] (Continued) Reason: syncope, R/O PE at 1004 Reported and signed by: Luis Mendiola MD CC: Reese Bettencourt MD; Xavier Gray MD Technologist: Sugey Toro CT Trscrpt Dt/ (1004)[id number] Orig Print D/T: S: 04/11/2023 (1007) CTDI: DLP: [address] FSED NAME: MARLINE BLEVINS [id number] PHYS: [place] [address] : 1955 AGE: 68 SEX: M LOC: [place] PHONE #: [phone] EXAM DATE: 04/11/2023 STATUS: REG ER FAX #: RAD NO: DC Dt: PAGE 2 Signed Report- CT HEAD/BRAIN W/O [id number] 09:55:00 [facility] 1955 Sex: M Patient Name: MARLINE BLEVINS Unit No: [id number] EXAMS: CPT CODE: [id number] CT HEAD/BRAIN W/O CONT 40405 Reason: syncope Exam: - CT HEAD/BRAIN W/O CONT Indication: syncope Technique: Multidetector images (5 mm slice thickness) were obtained from the base of the skull to the vertex without contrast enhancement. 3-D postprocessing, including 3-D recons, MIP, or volume rendering images, were performed when applicable per department protocol. This CT exam was performed using one or more of the following dose reduction techniques: Automated exposure control; Adjustment of the mA and/or kV according to patient size; Use of iterative reconstruction technique. Comparison: January 23, 2016 Findings: Mian tricles are symmetric in shape and size. Subtle low-density area within the inferior right frontal lobe is noted (axial series 2, image #15), likely present previously, may represent previous ischemia. There is no evidence of hemorrhage, acute ischemic change or intra-/extra-axial fluid collections. The basal cisterns are well visualized. There is no mass lesion, mass effect or midline shift. Thebony calvarium is intact. Mild mucoperiosteal thickening is seen within the ethmoid air cells. Other paranasal sinuses and mastoid air cells are well aerated.. Impression: There is no radiographic evidence of acute intracranial abnormality. Mild ethmoid air cell disease. Location: V1 at 0955 Reported and signed by: Flor Jensen MD CC: Reese Bettencourt MD; Xavier Gray MD Technologist: Sugey Toro CT Trscrpt Dt/ (954)[id number] Orig Print D/T: S: 04/11/2023 (0958) CTDI: DLP: [address] FSED NAME: MARLINE BLEVINS [id number] [facility] PHYS: [place] [address] : 1955 AGE: 68 SEX: M LOC: [place] PHONE #: [phone] EXAM DATE: 04/11/2023 STATUS: REG ER FAX #: RAD NO: DC Dt: PAGE 1 Signed [id number] 08:28:00* Test Item Value Reference Range Interpretation Comme nts CK (test code = CKT) 42 Units/L 39-308 N TROP-I HIGH [id number] 08:28:00* Test Item Value Reference Range Interpretation Comme nts TROP-I HIGH SENSITIVITY (test code = TROPIHS) < 4 ng/L < 76 - The use of serial sampling and testing protocol is a recommended practice.- An elevated troponin level alone is often not sufficient for diagnosis of myocardial infarction.Results of this assay method may be falsely depressed orelevated if patient is taking high doses of Biotin. [id number] 08:28:00* Test Item Value Reference Range Interpretation Comme nts ALCOHOL (test code = ALC) 13 MG/DL 0-10 H 0 - 10: Should b e interpreted as NEGATIVE. 11 - 50: None to mild euphoria. 51 - 100: Mild influence on vision and dark adaptation. > 80: Legal intoxication; Depression of LOCAL COORDINATOR; Increasing degree of poisoning. > 400: Fatalities reported. Results are for medical purposes only and not forlegal or employment evaluative purposes. BASIC METABOLIC [id number] 08:28:00* Test Item Value Reference Range Interpretation Comme nts SODIUM (test code = NA) 130 MMOL/L 133-145 L POTASSIUM (test code = K) 3.8 MMOL/L 3.6-5.2 N CHLORIDE (test code = CL) 94 MMOL/L 100-108 L CARBON DIOXIDE (test code = CO2) 25 MMOL/L 22-32 N GLUCOSE (test code = GLU) 93 MG/DL 65-99 N Results of this assay method may be falsely depressed orelevated if patient is taking sulfasalazine. BLOOD UREA NITROGEN (test code = BUN) 4 MG/DL 6-20 L GLOMERULAR FILTRATION RATE (test code = GFR) 93 49-113 N The Glomerular Filtration Rate is a calculated parameterbased on serum Creatinine, patient age and sex. GFR valuesless than 60 mL/min/1.73 square meters are indicative ofChronic Kidney Disease. Values less than 15 mL/min/1.73square meters indicate Kidney failure. The calculation forGFR is based on the CKD-EPI (2020) calculation. This formulais race indifferent and is the recommended formula for GFRby the National Kidney Foundation for Adults.The GFR will not calculate if the sex is unknown or if thepatient's age is <18 years. CREATININE (test code = CREAT) 0.91 MG/DL 0.60-1.00 N CALCIUM (test code = CA) 8.6 MG/DL 8.7-10.5 L [id number] 08:28:00* Test Item Value Reference Range Interpretation Comme nts MAGNESIUM (test code = MAG) 1.8 MG/DL 1.8-2.4 N THYROID STIMULATING [id number] 08:28:00* Test Item Value Reference Range Interpretation Comme nts THYROID STIMULATING HORMONE (test code = TSH) 1.83 0.42-5.47 N Micro- International Units/L NT PRO-BRAIN NATRIURETIC [id number] 08:28:00* Test Item Value Reference Range Interpretation Comme nts NT PRO-BRAIN NATRIURETIC PEPTI (test code = PROBNP) 43 PG/ML 0-125 N Results of this assay method may be falsely depressed orelevated if patient is taking high doses of Biotin. D-DIMER [id number] 08:26:00* Test Item Value Reference Range Interpretation Comme nts D-DIMER QUANT (test code = DDIMER) < 100 D-DU 0-400 N Alere Triage values presented in units of mass (ng/mL)of D-dimer, also known as D-dimer units (D-DU).* Cut-off: 400 ng/mL Results of the D-Dimer test should always be interpretedin conjunction with the patient's medical history, clinicalpresentation, and other findings. Clinical diagnosis shouldnot be based on the results of D-Dimer alone.Patients with a distal DVT may have a normal D-Dimer result. CBC W/O [id number] 08:06:00* Test Item Value Reference Range Interpretation Comme nts WHITE BLOOD CELL (test code = WBC) 7.53 x10 3/uL 4.80-10.80 N RED BLOOD CELL (test code = RBC) 4.65 x10 6/uL 4.7-6.1 L HEMOGLOBIN (test code = HGB) 14.7 G/DL 14.0-17.0 N HEMATOCRIT (test code = HCT) 41.8 % 42-52 L MEAN CELL VOLUME (test code = MCV) 89.9 FL 80-94 N MEAN CELL HGB (test code = MCH) 31.6 PG 27-31 H MEAN CELL HGB CONCENTRATION (test code = MCHC) 35.2 G/DL 33-37 N RED CELL DISTRIBUTION WIDTH (test code = RDW) 11.7 % 11.5-14.5 N PLATELET COUNT (test code = PLT) 366 x10 3/uL 150-450 N MEAN PLATELET VOLUME (test c ode = MPV) 9.4 FL 7.4-10.4 N - XR CHEST 1 [id number] 08:05:00 [facility] 1955 Sex: M Patient Name: MARLINE BLEVINS Unit No: [id number] EXAMS: CPT CODE: [id number] XR CHEST 1 V 99450 Reason: syncope Chest one view AP 04/11/2023 8:05 AM CLINICAL HISTORY: Syncope COMPARISON: 01/23/2016 LOCATION: W1 FINDINGS: The lungs are clear. Cardiomediastinal contours are within normal limits. The central pulmonary vasculature is not engorged. There are changes of median sternotomy. IMPRESSION: Unremarkable frontal chest radiograph. at 08 Reported and signed by: Primo Leggett MD CC: Reese Bettencourt MD; Xavier Gray MD Technologist: Sugey Toro CT Trscrpt Dt/ (0805)[id number] [facility] NAME: MARLINE BLEVINS [address] [facility] PHYS: [place] [address] : 1955 AGE: 68 SEX: M LOC: [place] PHONE #: [phone] EXAM DATE: 04/11/2023 STATUS: PRE ER FAX #: RAD NO: DC Dt: PAGE 1 Signed Report Consult Notes Date/Time Note Provider Source 2024-11-12 16:14:32 General Neurology Initial Consultation Note Name: Rosmery Blevins Date: 11/05/2024 Service: Neurology Attending: Dr. Arleen White Reason for Consult: Altered mental status Subjective: History of Present Illness: Rosmery Blevins is a 69 y.o. male with PMH of PMH of HTN, CAD (s/p CABG), PAD (s/p BL LE stenting), alcohol use disorder, tobacco use, recent admission with right-sided CVA. Patient brought from rehab with right eye pain, seen by ophthalmology, found to have corneal ulcer, started on topical medications p.o. Valtrex. Patient also found to have complicated UTI on a course of bactrim Neurology is being consulted for altered mental status. Per primary team, pt has been exhibiting waxing and waning agitation, usually worse in the afternoon, without improvement after UTI treatment. CTH shows enlarged ventricle and sulci from chronic brain parenchymal volume loss and periventricular white matter hypoattenuation. On conversation w/ son (Chanda Blevins - phone [phone]). Pt has exhibited expressive aphasia that has been "in and out," every since his CVA a few months ago. After the stroke, pt could not express complete intelligible sentences, able to say "few words here and there." Before this hospitalization, per son, pt was able to understand and follow commands, but that has been waxing/waning. Past Medical History: History reviewed. No pertinent past medical history. Past Surgical History: History reviewed. No pertinent surgical history. Family History: No family history on file. Social History: Social History Socioeconomic History Marital status: Spouse name: Not on file Number of children: Not on file Years of education: Not on file Highest education level: Not on file Occupational History Not on file Tobacco Use Smoking status: Unknown Smokeless tobacco: Not on file Vaping Use Vaping status: Unknown Substance and Sexual Activity Alcohol use: Defer Comment: pt so confused and speech was incomprehensible Drug use: Defer Sexual activity: Defer Other Topics Concern Not on file Social History Narrative Not on file Social Drivers of Health Financial Resource Strain: Not on file Food Insecurity: No Food Insecurity (11/06/2024) Hunger Vital Sign Worried About Running Out of Food in the Last Year: Never true Ran Out of Food in the Last Year: Never true Transportation Needs: No Transportation Needs (11/06/2024) PRAPARE - Transportation Lack of Transportation (Medical): No Lack of Transportation (Non-Medical): No Physical Activity: Not on file Stress: Not on file Social Connections: Not on file Intimate Partner Violence: Patient Unable To Answer (11/06/2024) Humiliation, Afraid, Rape, and Kick questionnaire Fear of Current or Ex-Partner: Patient unable to answer Emotionally Abused: Patient unable to answer Physically Abused: Patient unable to answer Sexually Abused: Patient unable to answer Housing Stability: Low Risk (11/06/2024) Housing Stability Vital Sign Unable to Pay for Housing in the Last Year: No Number of Times Moved in the Last Year: 0 Homeless in the Last Year: No Medications: Medications Prior to Admission Medication Sig Dispense Refill Last Dose/Taking amLODIPine (Norvasc) 2.5 MG tablet Take 2.5 mg by mouth 1 time each day. Unknown atorvastatin (Lipitor) 40 MG tablet Take 40 mg by mouth in the evening. Unknown clopidogrel (Plavix) 75 MG tablet Take 75 mg by mouth 1 time each day. Unknown folic acid (Folvite) 1 MG tablet Take 1 mg by mouth 1 time each day. Unknown losartan (Cozaar) 50 MG tablet Take 50 mg by mouth in the morning and 50 mg in the evening. Unknown QUEtiapine (SEROquel) 50 MG tablet Take 50 mg by mouth in the morning and 50 mg in the evening. Unknown senna-docusate (Senna-S) 8.6-50 mg tablet Take 2 tablets by mouth in the morning and 2 tablets in the evening. Unknown tamsulosin (Flomax) 0.4 MG 24 hr capsule Take 0.4 mg by mouth at bedtime. Unknown thiamine (Vitamin B-1) 100 MG tablet Take 100 mg by mouth 1 time each day. Unknown acetaminophen (Tylenol 8 Hour) 650 MG ER tablet Take 650 mg by mouth every 4 hours if needed for mild pain (1-3). Do not crush, chew, or split. Unknown acetaminophen (Tylenol) 325 MG tablet Take 325 mg by mouth every 4 hours if needed for fever. Unknown aspirin 81 MG chewable tablet Chew 81 mg every morning. (Patient not taking: Reported on 11/06/2024) Not Taking ciprofloxacin (Ciloxan) 0.3 % ophthalmic solution Administer 2 drops into affected eye(s) every 4 hours. enoxaparin (Lovenox) 40 mg/0.4mL injection Inject 40 mg under the skin 1 time each day. Unknown gabapentin (Neurontin) 300 MG capsule Take 300 mg by mouth in the morning and 300 mg in the evening. Unknown lamoTRIgine (LaMICtal) 50 mg half tablet Take 50 mg by mouth in the morning and 50 mg in the evening. Unknown LORazepam (Ativan) 1 MG tablet Take 1 mg by mouth in the morning and 1 mg in the evening. Unknown magnesium oxide (Mag-Ox) 400 (240 Mg) MG tablet Take 400 mg by mouth in the morning and 400 mg in the evening. Unknown megestrol (Megace) 40 MG tablet Take 40 mg by mouth 2 times a day. Unknown melatonin 3 MG tablet Take 3 mg by mouth as needed at bedtime for sleep. Unknown ktjrbzkb-brtsvzoxv-mgwJFFZQroprf (Maxitrol) 0.1 % ophthalmic suspension Administer 1 drop into the right eye every 4 hours. Unknown nystatin (Nystop) 176395 UNIT/GM powder Apply 1 Application topically in the morning and 1 Application in the evening. To Groin. Unknown omeprazole (PriLOSEC) [address] capsule Take 20 mg by mouth in the morning. Take before meals. (Patient not taking: Reported on 11/06/2024) Not Taking QUEtiapine (SEROquel) 50 MG tablet Take 50 mg by mouth 2 times a day as needed. Objective: Physical Examination: Vitals: 11/12/24 0712 11/12/24 1128 11/12/24 1129 11/12/24 1130 BP: 104/61 Pulse: 68 72 Resp: 18 17 Temp: 36.6 ?C (97.8 ?F) SpO2: 98% 97% General: No discomfort appreciated, polite, interactive Neuro: Mental Status: Awake, alert and oriented to self only, able to follow some commands (open eyes, track fingers, squeeze hands, resist from pulling/pushing, raising R and L legs) Language/Speech: expressive aphasia (ie, unable to express full intelligible complete sentence, but a few intelligible words in the beginning). Severe dysarthria. CN: II: L pupil round reactive to light. R pupil difficult to assess given pt resistance to eye opening and corneal infiltrates, and hypopion III/IV/: Able to track fingers, but unable to fully cooperate full exam V: Unable to assess VII: Pt able to resist from opening eyes VIII: Unable to assess IX/X/XII: Unable to assess Motor: RUE and RLE antigravity with drift to bed (baseline per son and apparently after stroke was plegic), LUE and LLE AG no drift Sensory: No sensory deficits to all modalities. Coordination: Unable to assess (ie pt uncooperative on finger to nose test) Diagnostic Data: Pertinent Labs : Labs in chart were reviewed. Imaging: CT BRAIN WO IV CONTRAST Result Date: 11/11/2024 EXAM: CT BRAIN WITHOUT CONTRAST DATE: 11/11/2024 19:58 INDICATION: AMS COMPARISON: None. TECHNIQUE: Axial CT images of the brain were obtained. Sagittal and coronal reformats. IV contrast: None DLP: Refer to CT protocol form FINDINGS: There is no edema, hemorrhage, mass lesion or other acute intracranial abnormality. Extensive area of hypoattenuation in observed in the left parietal occipital and temporal lobes associated with mild secondary enlargement of the posterior left lateral ventricle, suggesting encephalomalacia. The ventricles and sulci are enlarged from chronic brain parenchymal volume loss. Periventricular white matter hypoattenuation is nonspecific but likely represents chronic microvascular ischemic changes. The skull base, calvarium, and included facial bones are unremarkable. Mild mucosal thickening in bilateral frontal sinuses and anterior ethmoid cells. IMPRESSION: * No acute intracranial abnormality. * Ill-defined area of hypoattenuation in the left parietal occipital and temporal lobes associated with volume loss and secondary enlargement of the left lateral ventricle suggesting encephalomalacia. * Generalized cerebral volume loss with chronic small vessel disease.. Report finalized by: Chanda Mederos MD 11/11/2024 22:00 No MRI head results found for the past 14 days No EEG results found for the past 14 days Assessment: Rosmery Blevins is a 69 y.o. male with PMH of PMH of HTN, CAD (s/p CABG), PAD (s/p BL LE stenting), alcohol use disorder, tobacco use, recent admission with right-sided CVA. Patient brought from rehab with right eye pain, seen by ophthalmology, found to have corneal ulcer, on topical medications p.o. Valtrex. Patient also found to have complicated UTI on a course of bactrim. Neurology was consulted for progressing AMS. Given neurological exam, pt able to follow some commands (eye tracking, motor test - raising both LE and hold for >5 secs, squeezing both hands, resist from pulling/pushing both arms, albeit waxing/waning, and displays signs of expressive aphasia wo ability to complete a full intelligible sentence. On confirmation w/ son via phone call, pt's mentation is consistent w/ his baseline after the recent CVA. Given reassuring collaterals consistent w/ neurological exam, no clinical c/f acute underlying process that warrants further neurological workup at this time. Suspected Diagnoses: Expressive aphasia 2/2 prior stroke Recommendations: - No acute neurological workup warranted at this time given that pt's mentation is congruent w/ his baseline level (ie signs of expressive aphasia, but waxing/waning comprehension), per conversation w/ pt's son. - Consider TSH, B12, folate for further evaluation of suspected dementia. - Neurology will continue to follow. Discussed with attending Dr. Arleen White. Ja Bermudez MD PGY-1 Ophthalmology [facility] Staffed with Dr. Cindy Dominguez DO Neurology PGY3 Cosigned by Arleen White MD at 11/13/2024 9:35 PM CDT [facility] 2024-11-06 00:36:18 Associated Order(s): IP CONSULT TO OPHTHALMOLOGY OPHTHALMOLOGY CONSULT NOTE PATIENT NAME: Rosmery Blevins PATIENT : 1955 MR #: [id number] ROOM: [place] [address] DATE OF CONSULT: 11/06/2024 CONSULTING ATTENDING: Dr.Kheirkhah COLBERT CONSULTING RESIDENT: Alice Merino MD REASON FOR CONSULT: R eye vision loss x4 days CHART REVIEWED: YES HISTORY OF PRESENT ILLNESS: Rosmery Blevins is a 69 y.o. male with a PMH of PMH of CAD s/p CABG, PAD, EtOH use, stroke, and unknown POH presenting from [facility] with vision loss from right eye for four days. Patient is AAOx0 on exam and cannot follow commands. Contacts were noted on exam and removed REVIEW OF SYSTEMS: CONSTITUTIONAL: No fever, weight changes. MUSCULOSKELETAL: No generalized pain. SKIN: No rash. EYES: As above. ENT: No rhinorrhea, hearing changes, oral lesions. RESPIRATORY: No SOB. CARDIOVASCULAR: No chest pain. GASTROINTESTINAL: No nausea, vomiting, diarrhea. HEMATOPOETIC/LYMPHATIC: No bruising, LAD. GENITOURINARY: No change in UOP. NEUROLOGICAL: No headache. PSYCHIATRIC: No behavioral change. ALLERGY/IMMUNE SYSTEM: No allergies. PAST OCULAR HISTORY: Please see HPI PAST MEDICAL HISTORY: He has no past medical history on file. PAST SURGICAL HISTORY: He has no past surgical history on file. SOCIAL HISTORY: HeAlcohol use questions deferred to the physician. No history on file for tobacco use and drug use. FAMILY HISTORY: No family history on file. ALLERGIES: Patient has no known allergies. MEDICATIONS: Current Facility-Administered Medications: acetaminophen (Tylenol) tablet 650 mg, 650 mg, Oral, q6h PRN, Chriss Flores MD amLODIPine (Norvasc) tablet 5 mg, 5 mg, Oral, Daily, Chriss Flores MD aspirin chewable tablet 81 mg, 81 mg, Oral, q AM, Chriss Flores MD atorvastatin (Lipitor) tablet 40 mg, 40 mg, Oral, Daily, Chriss Flores MD atropine 1 % ophthalmic solution 1 drop, 1 drop, Right Eye, BID, Alice Merino MD calcium gluconate 1g in NaCl 50mL IVPB 1 g, 1 g, Intravenous, PRN, Chriss Flores MD clopidogrel (Plavix) tablet 75 mg, 75 mg, Oral, Daily, Chriss Flores MD dextrose 50 % solution 12.5 g, 12.5 g, Intravenous, PRN, Chriss Flores MD dextrose 50 % solution 25 g, 25 g, Intravenous, PRN, Chriss Flores MD erythromycin (Romycin) 5 mg/g ophthalmic ointment 1 Application, 1 Application, Right Eye, 4x daily, Alice Merino MD fluorescein 1 MG ophthalmic strip 2 strip, 2 strip, Both Eyes, Once, Luis Wood MD folic acid (Folvite) tablet 1 mg, 1 mg, Oral, Daily, Chriss Flores MD glucagon injection 1 mg, 1 mg, Intramuscular, PRN, Chriss Flores MD lansoprazole (First - Lansoprazole) suspension 30 mg, 30 mg, Oral, Daily before breakfast, Chriss Flores MD losartan (Cozaar) tablet 50 mg, 50 mg, Oral, Daily, Chriss Flores MD magnesium oxide (Mag-Ox) tablet 800 mg, 800 mg, Oral, PRN, Chriss Flores MD magnesium sulfate in D5W IVPB 1 g, 1 g, Intravenous, PRN, Chriss Flores MD magnesium sulfate IVPB 2 g, 2 g, Intravenous, PRN, Chriss Flores MD magnesium sulfate IVPB 4 g, 4 g, Intravenous, PRN, Chriss Flores MD moxifloxacin (Vigamox) 0.5 % ophthalmic solution 1 drop, 1 drop, Right Eye, q1h, Alice Merino MD naloxone (Narcan) injection 0.04 mg, 0.04 mg, Intravenous, PRN, Chriss Flores MD oxyCODONE (Roxicodone) solution 2.5 mg, 2.5 mg, Oral, q6h PRN, Chriss Flores MD potassium & sodium phosphates (Phos-NaK) 280-160-250 MG packet 2 packet, 2 packet, Oral, PRN, Chriss Flores MD potassium chloride CR (Klor-Con M20) ER tablet 20 mEq, 20 mEq, Oral, PRN, Chriss Flores MD potassium chloride CR (Klor-Con M20) ER tablet 40 mEq, 40 mEq, Oral, PRN, Chriss Flores MD potassium chloride IVPB 10 mEq, 10 mEq, Intravenous, PRN, Chriss Flores MD Potassium chloride solution 20 mEq, 20 mEq, Nasogastric, PRN, Chriss Flores MD potassium phosphate 30 mmol/260 mL NS infusion (premix) 30 mmol, 30 mmol, Intravenous, PRN, Chriss Flores MD potassium phosphates 15 mmol in sodium chloride 0.9 % 100 mL infusion, 15 mmol, Intravenous, PRN, Chriss Flores MD proparacaine (Alcaine) 0.5 % ophthalmic solution 1 drop, 1 drop, Both Eyes, Once, Luis Wood MD QUEtiapine (SEROquel) tablet 25 mg, 25 mg, Oral, Nightly, Chriss Flores MD senna-docusate (Nimisha-Colace) 8.6-50 mg per tablet 2 tablet, 2 tablet, Oral, q12h, Chriss Flores MD sodium chloride (NS) 0.9 % flush 10 mL, 10 mL, Intravenous, q12h CAN, Chriss Flores MD sodium chloride (NS) 0.9 % flush 10 mL, 10 mL, Intravenous, PRN, Chriss Flores MD sodium phosphates 15 mmol in sodium chloride 0.9 % 100 mL IVPB, 15 mmol, Intravenous, PRN, Chriss Flores MD sodium phosphates 30 mmol in sodium chloride 0.9 % 250 mL IVPB, 30 mmol, Intravenous, PRN, Chriss Flores MD tamsulosin (Flomax) 24 hr capsule 0.4 mg, 0.4 mg, Oral, Daily, Chriss Flores MD thiamine (Vitamin B-1) tablet 100 mg, 100 mg, Oral, Daily, Chriss Flores MD tobramycin 13.57 mg/mL ophthalmic solution, 1 drop, Right Eye, q1h, Alice Merino MD valACYclovir (Valtrex) tablet 1,000 mg, 1,000 mg, Oral, TID, Luis Wood MD vancomycin (Vancocin) 50 mg/mL ophthalmic solution 1 drop, 1 drop, Right Eye, q1h, Alice Merino MD Last Recorded Vitals Blood pressure 119/63, pulse 77, temperature 36.8 ?C (98.2 ?F), resp. rate 18, height 1.854 m (6' 1"), weight 78.7 kg (173 lb 8 oz), SpO2 100%. Ophthalmologic Exam : Base Eye Exam Visual Acuity (Snellen - Linear) Right Left Dist sc BTL BTL Tonometry (Tonopen, 12:39 AM) Right Left Pressure 22 10 Pupils Dark Light Shape React APD Right 3 2 Round Brisk None Left 3 3 Round Minimal None Visual Lomax Unable secondary to mentation Extraocular Movement Grossly full but unable to follow commands Neuro/Psych Mood/Affect: AAOxo Dilation Both eyes: 2.5% Phenylephrine @ 12:40 AM Slit Lamp and Fundus Exam External Exam Right Left External Normal Normal Slit Lamp Exam Right Left Lids/Lashes Normal Normal Conjunctiva/Sclera 2+ injection White and quiet Cornea Central circular epi-defect with infiltrate, hazy view Clear Anterior Chamber 40% layered hypopyon Deep and quiet Iris Round and reactive but limited view secondary to surface Round and reactive Lens 2+ NS Clear Anterior Vitreous Normal Normal Fundus Exam Right Left Disc no view Normal C/D Ratio 0.3 Macula no view Normal Vessels no view Normal Periphery no view Normal Exam limited by patient cooperation and mentation Eye exam last edited by Alice Merino MD on 11/06/2024 at 06:19 CDT IMAGING: No CT head results found for the past 14 days No MRI head results found for the past 14 days PROCEDURES PERFORMED: B-Scan Right eye (OD): no retinal masses, detachment, or tears seen, no signs of vitritis. Vitreous debris equal Left eye (OS): no retinal mass, detachment, or tears seen, no signs of vitritis, Vitreous debris equal DIAGNOSES/RECOMMENDATION: 1. Corneal Ulcer, Right Eye 2. Hypopyon, right eye - Corneal culture was obtained and sent for Gram stain, aerobic culture, anaerobic culture, fungal smear, fungal culture, HSV PCR, VZV PCR, and Acanthamoeba testing - Recommend fortified vancomycin 25 mg/mL 1 drop, every hour, Right eye - Recommend fortified tobramycin 13.6 mg/mL 1 drop, every hour, Right eye - Recommend moxifloxacin 1 drop, every hour, Right eye - Recommend erythromycin ophthalmic ointment QID to periocular region, Right eye - Recommend cyclopentolate 1% (or atropine 1% if unavailable) BID, Right eye - Recommend PO valtrex 1g TID (renal dosing adjustment per primary) - Eye drops ordered by ophthalmology, please keep drops on ice when not in use - Recommend hong konger eye mask or taping eyelid closed to prevent exposure - Avoid contact usage - Patient to be admitted to ensure proper ocular administration of drops as patient is AAOx0 Please page the ophthalmology on-call resident if any changes develop or if you have any questions or concerns. Thank you for the consult. Alice Merino DO [facility] Ophthalmology PGY2 Cosigned by Ann Barrett MD at 11/07/2024 3:14 PM CDT [facility] History and Physical Notes Date/Time Note Provider Source 2024-11-06 06:17:29 Chief complaint: Admitted for corneal ulcer and hypopyon for pain control HPI: 69 years old with PMH of HTN, CAD (s/p CABG), PAD (s/p BL LE stenting), alcohol use disorder, tobacco use, recent admission with right-sided CVA (initial NIHSS 25) with acute left MCA/TIN DIPPER infarction (s/p tenecteplase) Patient presented from rehab with right eye pain. He was seen by ophthalmology, found to have corneal ulcer, hypopyon, started on topical vancomycin, tobramycin, moxifloxacin, cyclopentolate, p.o. Valtrex (still pending finalization of the recommendations) requested to admit for pain control Upon my encounter, patient was sleeping, he denied ongoing pain, when asked about his medication, he answers by "I do not remember". Rest of the history is limited (as patient is sleepy and cannot remember. I tried to look for records sent from the rehab but I did not find while in the ED) ROS: Limited as above Past Medical History He has no past medical history on file. Surgical History He has no past surgical history on file. Family History No family history on file. Social History HeAlcohol use questions deferred to the physician. No history on file for tobacco use and drug use. Allergies Patient has no known allergies. Medications Medications Prior to Admission Medication Sig Dispense Refill Last Dose/Taking amLODIPine (Norvasc) 5 MG tablet Take 5 mg by mouth 1 time each day. Unknown aspirin 81 MG chewable tablet Chew 81 mg every morning. Unknown atorvastatin (Lipitor) 40 MG tablet Take 40 mg by mouth 1 time each day. Unknown clopidogrel (Plavix) 75 MG tablet Take 75 mg by mouth 1 time each day. Unknown folic acid (Folvite) 1 MG tablet Take 1 mg by mouth 1 time each day. Unknown losartan (Cozaar) 50 MG tablet Take 50 mg by mouth 1 time each day. Unknown QUEtiapine (SEROquel) 25 MG tablet Take 25 mg by mouth at bedtime. Unknown senna-docusate (Senna-S) 8.6-50 mg tablet Take 2 tablets by mouth in the morning and 2 tablets in the evening. Unknown tamsulosin (Flomax) 0.4 MG 24 hr capsule Take 0.4 mg by mouth 1 time each day. Unknown thiamine (Vitamin B-1) 100 MG tablet Take 100 mg by mouth 1 time each day. Unknown omeprazole (PriLOSEC) [address] capsule Take 20 mg by mouth in the morning. Take before meals. Unknown Last Recorded Vitals Blood pressure 119/63, pulse 77, temperature 36.8 ?C (98.2 ?F), resp. rate 18, height 1.854 m (6' 1"), weight 78.7 kg (173 lb 8 oz), SpO2 100%. Body mass index is 22.89 kg/m?. Physical exam: General: Appears well nourished, no acute distress Skin: Multiple pressure ulcers Head and neck: Right eye pressure ulcer, supple neck exam, no JVD, no carotid bruit Lungs: CTAB Cardiac: Normal S1, S2. Regular rate and rhythm. No adventitious sounds or murmur. Abdomen: Soft, nontender, normal bowel sounds, no organomegaly, no ascites Extremities: No significant pitting edema. Intact peripheral pulsation. Bilateral pressure ulcers Neurology: Sleepy, arousable, answers by yes or not or I do not remember. Moves 4 extremity. Gait and coordination were not tested Assessment & Plan Corneal ulcer Presented with eye pain, seen by ophthalmology, found to have corneal ulcer, hypopyon, started on topical vancomycin, tobramycin, moxifloxacin, cyclopentolate, p.o. Valtrex (still pending finalization of the recommendations) History of CVA (cerebrovascular accident) Peripheral vascular disease (HCC) Resume "presumed" home aspirin, Plavix, atorvastatin 40 Trial to obtain records of home medication, involve social services analyst if difficult access to obtain medication (patient states that he does not take any medication currently) Essential hypertension Resume "presumed" home amlodipine 5, losartan 50 Last blood pressure 119/63 ETOH abuse Patient is currently sleeping, Unknown last drink (likely remote, came from rehab) Continue home thiamine, folic acid Gastroesophageal reflux disease Continue home PPI Medication management Patient cannot endorse/are not exactly sure of her home medication dosage and frequency. Pharmacy was consulted to confirm home medications. Current Diet: Adult Diet Regular [facility] Notes Date/Time Note Provider Source Referral ID Status Reason Start Date Expiration Date Visits Requested Visits Authorized [id number] Pending Review Specialty Services Required 11/14/2024 01/13/2025 999 999 [facility]2025-08-07 15:51:52* * Auth/Cert (Routine) Specialty Diagnoses / Procedures Referred By Contac t Referred To Contact Diagnoses Corneal ulcer Corneal ulcer of right eye Hypopyon of right eye Procedures Verified [facility] Primary for DOS 11/06/2024 Status- Obseravtion No Auth Needed Chriss Flores MD [address] [facility] [id number] [place] [address] Phone: tel: fax: [facility] ([facility]) [address] [place] [address] Phone: tel: Referral ID Status Reason Start Date Expiration Date Visits Re quested Visits Authorized [id number] [address] [place] [address]-08-07 15:51:52 [id number] 15:51:52* AUDIT-C Score Answer Date of Assessment Author -1 11/06/2024 5:34 AM CDT Jonelle Jason RN * * Calculated C-SSRS Risk Score (Lifetime/Recent) Answer Date of Assessment Author No Risk Indicated 11/06/2024 5:33 AM CDT Jonelle Jason RN * [place] Suicide Severity Rating Scale (Screener/Recent Self-Report) Question Answer Date of Assessment Author 1. Wish to be (Past 1 Month) No 11/06/2024 5:33 AM CDT Jonelle Jason RN 2. Non-Specific Active Suicidal Thoughts (Past 1 Month) No 11/06/2024 5:33 AM Jonelle Steward RN 6. Suicidal Behavior (Lifetime) No 11/06/2024 5:33 AM CDT Jonelle Jason RN [id number] 15:51:52* Obey Pineda MD - 11/14/2024 2:12 PM CDT Discharge Summary: 11/14/2024 Patient: Rosmery Blevins Date of Admission: 11/05/2024 Date of Discharge: 11/14/2024 Discharge Diagnoses Principal Problem: Corneal ulcer Active Problems: Essential hypertension Gastroesophageal reflux disease Peripheral vascular disease (HCC) History of CVA (cerebrovascular accident) Dementia with behavioral disturbance (HCC) UTI (urinary tract infection) Complicated UTI (urinary tract infection) Toxic metabolic encephalopathy Ocular hypertension Resolved Problems: ETOH abuse Medication management Hypopyon of right eye Consulting Services Neurology Ophthalmology Hospital Course 69 years old with PMH of HTN, CAD (s/p CABG), PAD (s/p BL LE stenting), alcohol use disorder, tobacco use, recent admission with right-sided CVA. Patient brought from rehab with right eye pain, seen by ophthalmology, found to have corneal ulcer, started on ophthalmologic medications/abx and p.o. Valtrex. Cultures came back negative for herpes and Valtrex stopped. Patient also found to have UTI, started on p.o. Bactrim. Eye culture positive for Staph aureus. Ophthalmology has adjusted timing of eye drops and made recommendations for discharge. Patient discharged with eye drops with him and scripts for any refills needed. Patient to follow up in Ophthalmology clinic in 1-2 weeks. Neurology consulted for agitation, dementia, possible delirium. No acute work-up recommended after discussion with family. Patient at baseline. Patient transferring home by ambulance. Son has confirmed he will be present at house to receive patient and is in agreement with discharge. Physical Exam At Time of Discharge Physical Exam: Vitals and nursing note reviewed. Constitutional: General: He is not in acute distress. HENT: Mouth/Throat: Mouth: Mucous membranes are moist. Cardiovascular: Rate and Rhythm: Normal rate and regular rhythm. Heart sounds: Normal heart sounds. Pulmonary: Effort: Pulmonary effort is normal. No respiratory distress. Breath sounds: Normal breath sounds. Abdominal: Palpations: Abdomen is soft. Tenderness: There is no abdominal tenderness. Musculoskeletal: General: No swelling. Skin: General: Skin is warm. Neurological: Mental Status: He is alert. Mental status is at baseline. He is disoriented. Motor: Weakness (baseline RSW) present. Psychiatric: Mood and Affect: Mood normal. Patient Condition at Discharge: Stable Discharge Medications New atropine 1 % ophthalmic solution - 1 drop 2 times daily dorzolamide-timolol (Cosopt) 2-0.5 % ophthalmic solution - 1 drop 2 times daily erythromycin (Romycin) 5 mg/g ophthalmic ointment - 1 Application 4 times daily moxifloxacin (Vigamox) 0.5 % ophthalmic solution - 1 drop Every 6 hours tobramycin 0.3 % solution 5 mL with tobramycin 80 MG/2ML solution 80 mg - 1 drop Every 6 hours vancomycin (Vancocin) 50 mg/mL ophthalmic solution - 1 drop Every 6 hours Changed losartan (Cozaar) 50 MG tablet - 50 mg Daily - Frequency changed from "2 times daily" to "Daily". Stopped acetaminophen (Tylenol) 325 MG tablet - 325 mg Every 4 hours PRN aspirin 81 MG chewable tablet - 81 mg Every morning ciprofloxacin (Ciloxan) 0.3 % ophthalmic solution - 2 drop Every 4 hours enoxaparin (Lovenox) 40 mg/0.4mL injection - 40 mg Daily LORazepam (Ativan) 1 MG tablet - 1 mg 2 times daily magnesium oxide (Mag-Ox) 400 (240 Mg) MG tablet - 400 mg 2 times daily megestrol (Megace) 40 MG tablet - 40 mg 2 times daily kzhusmne-lulftjveu-rpePMZZOfseon (Maxitrol) 0.1 % ophthalmic suspension - 1 drop Every 4 hours nystatin (Nystop) 720167 UNIT/GM powder - 1 Application 2 times daily omeprazole (PriLOSEC) [address] capsule - 20 mg Daily before breakfast Continued acetaminophen (Tylenol 8 Hour) 650 MG ER tablet - 650 mg Every 4 hours PRN amLODIPine (Norvasc) 2.5 MG tablet - 2.5 mg Daily atorvastatin (Lipitor) 40 MG tablet - 40 mg Every evening clopidogrel (Plavix) 75 MG tablet - 75 mg Daily folic acid (Folvite) 1 MG tablet - 1 mg Daily gabapentin (Neurontin) 300 MG capsule - 300 mg 2 times daily lamoTRIgine (LaMICtal) 50 mg half tablet - 50 mg 2 times daily melatonin 3 MG tablet - 3 mg Nightly PRN QUEtiapine (SEROquel) 50 MG tablet - 50 mg 2 times daily QUEtiapine (SEROquel) 50 MG tablet - 50 mg 2 times daily PRN senna-docusate (Senna-S) 8.6-50 mg tablet - 2 tablet Every 12 hours tamsulosin (Flomax) 0.4 MG 24 hr capsule - 0.4 mg Nightly thiamine (Vitamin B-1) 100 MG tablet - 100 mg Daily Outpatient Follow-Up Referrals/Appointments Issues Requiring Outpatient Follow-Up Corneal ulcer management - referred to [facility] for f/u in 1-2 weeks PCP - management of thyroid, HTN, dementia Discharge Instructions You have been treated at [facility] for an ulcer on the cornea of your right eye. You are now safe for discharge. Please see the included Medication Reconciliation for which medications to take. You will be sent home with eye drops for treamtent. You will need to take them for an additional ten days, until you follow up with the eye physician. Please make an appointment with the fueler at [facility] to ensure that your eye is healing appropriately with in ten days. [facility]: [phone] - Make an appointment for one week from now. You have been sent home with prescriptions for more eye drops if you run out. Please take the eye drops as follows: 1. Fortified vancomycin - 1 drop in R eye every 6 hours 2. Moxifloxacin - 1 drop in the R eye every 6 hours 3. Atropine - 1 drop in the R eye twice daily 4. Dorzolamide-timolol - 1 drop in BOTH eyes twice daily 5. Erythromycin ointment - around R eye four times daily Please keep the eye drops refrigerated when not in use. Return to the hospital for shortness of breath, worsening vision or eye pain, vomiting, or any other concerning symptoms. Disposition: Home with Home Health [6] Total Time Spent on Discharge: 70 minutes [id number] 15:51:52* Amy Benítez - 11/14/2024 1:29 PM CDT 11/14/24 1327 Discharge Planning Does the patient need discharge transport arranged? Yes Has discharge transport been arranged? Yes What day is the transport expected? 11/14/24 What time is the transport expected? 1500 Discharge Planning Comments Jhony (Kristyn will pick pt up at 1500 going home..Trip#[id number] FAXED AUTH) Discharge Planning Status Complete * Mary Haney RN - 11/14/2024 10:50 AM CDT CASE MANAGEMENT ROUTINE DISCHARGE PLAN NOTE LOS: 7 Barriers to Discharge: Severe confusion. Started Zyprexa last night. S/p fall yesterday, sitter at bedside. DISCHARGE PLAN A: Home/HH. DISCHARGE PLAN B: SNF. WENDY: >1-2 Days. Mary Haney RN, BSN-CM Finger Grip Machine Operator Medicine Service PH: * Vipul Ramirez PTA - 11/14/2024 10:30 AM CDT Encounter Note Patient Name: Rosmery Blevins Today's Date: 11/14/2024 Missed Treatment Time and Reason Attempted visit however pt adamantly declined to work with therapy. Will continue to follow. Vipul Ramirez PTA * Justo Dominguez MD - 11/13/2024 5:40 PM CDT Images from the original note were not included. Subjective Patient remains at neurological baseline this morning and does not have any new deficits. The current weakness on the right priya body was confirmed with the son over the phone. Objective Last Recorded Vitals 11/12/2024 7:59 PM 11/12/2024 11:58 PM 11/13/2024 3:50 AM 11/13/2024 7:03 AM 11/13/2024 7:04 AM 11/13/2024 1:18 PM 11/13/2024 3:24 PM Vitals Systolic 104 111 109 131 96 117 Diastolic 58 64 67 70 53 63 Heart Rate 70 72 81 74 75 70 Temp 36.7 ?C (98.1 ?F) 36.7 ?C (98.1 ?F) 36.7 ?C (98.1 ?F) 36.8 ?C (98.3 ?F) Resp 18 18 18 17 18 16 General: No discomfort appreciated, polite, interactive Lungs: Unlabored breathing on room air Neurological Exam: (exam unchanged since yesterday) Mental Status: Awake, alert and oriented to self only, able to follow some commands (open eyes, track fingers, squeeze hands, resist from pulling/pushing, raising R and L legs) Language/Speech: expressive aphasia (ie, unable to express full intelligible complete sentence, but a few intelligible words in the beginning). Severe dysarthria. CN: PERRL, 3 mm BL, EOMI, no nystagmus, full VF; no facial asymmetry, facial sensation intact; auditory acuity intact; tongue midline, palate elevates symmetrically Motor: RUE and RLE antigravity with drift to bed (baseline per son and apparently after stroke was plegic), LUE and LLE AG no drift Sensory: No sensory deficits to all modalities. Coordination: Normal FTN CT BRAIN WITHOUT CONTRAST DATE: 11/11/2024 19:58 INDICATION: AMS IMPRESSION: * No acute intracranial abnormality. * Ill-defined area of hypoattenuation in the left parietal occipital and temporal lobes associated with volume loss and secondary enlargement of the left lateral ventricle suggesting encephalomalacia. * Generalized cerebral volume loss with chronic small vessel disease.. Assessment: Rosmery Blevins is a 69 y.o. male with PMH of PMH of HTN, CAD (s/p CABG), PAD (s/p BL LE stenting), alcohol use disorder, tobacco use, recent admission with right-sided CVA. Patient brought from rehab with right eye pain, seen by ophthalmology, found to have corneal ulcer, on topical medications p.o. Valtrex. Patient also found to have complicated UTI on a course of bactrim. Neurology was consulted for progressing AMS. Given neurological exam, pt able to follow some commands (eye tracking, motor test - raising both LE and hold for >5 secs, squeezing both hands, resist from pulling/pushing both arms, albeit waxing/waning, and displays signs of expressive aphasia wo ability to complete a full intelligible sentence. On confirmation w/ son via phone call, pt's mentation is consistent w/ his baseline after the recent CVA. Given reassuring collaterals consistent w/ neurological exam, no clinical c/f acute underlying process that warrants further neurological workup at this time. At this time we have no further work-up. Please make sure patient has follow-up with stroke neurology okay and continues with his physical and speech therapy as indicated. Consider muscle relaxants and other symptomatic reliefs for right upper extremity poststroke spasticity. Suspected Diagnoses:Expressive aphasia 2/2 prior stroke Recommendations: - No acute neurological workup warranted at this time given that patient's mentation is congruent w/ his baseline level (ie signs of expressive aphasia, but waxing/waning comprehension), per conversation w/ pt's son. - No further inpatient neurological workup - Follow-up stroke neurology - Continue PT/OT/ST as indicated - Neurology will sign off at this time Discussed with attending Dr. Arleen White. Justo Dominguez DONeurology PGY3 Cosigned by Arleen White MD at 11/13/2024 9:17 PM CDT Associated attestation - Arleen White MD - 11/13/2024 9:17 PM CDT I saw and evaluated the patient with the resident, participating in the cesar portions of the service. I reviewed the resident's note and agree with the documented findings and plan of care. Patient appears at his neurological baseline per discussion with family. Hayden have right-sided weakness and aphasia which are residual from his stroke several months ago. The aphasia is mixed but predominantly expressive. His right upper extremity is spastic but able to lift antigravity and twister frame tender. His right lower extremity is 4/5. He is full strength on the right. No further neurological workup to recommend at this time. We will sign offplease let us know if you have any further questions or concerns and we will be happy to see the patient again * Obey Pineda MD - 11/13/2024 4:00 PM CDT Patient: Rosmery Blevins Progress Note 11/13/2024 Assessment 69 years old with PMH of HTN, CAD (s/p CABG), PAD (s/p BL LE stenting), alcohol use disorder, tobacco use, recent admission with right-sided CVA. Patient brought from rehab with right eye pain, seen by ophthalmology, found to have corneal ulcer, started on topical medications p.o. Valtrex. Patient also found to have complicated UTI, started on p.o. antibiotics, pending further workup for altered mentation. Neurology consulted - no acute neurologic work-up. Assessment & Plan Toxic metabolic encephalopathy Dementia with behavioral disturbance (HCC) Disoriented - reaching out to patient's son (Chanda) for baseline mentation Neurology consulted - no acute neurological work-up - mentation congruent with baseline per their conversation with son CT head without acute pathology Sitter present Corneal ulcer Culture of eye wound growing MRSA Ophthalmology consulted --- continue fortified vancomycin, tobramycin, moxifloxacin, cyclopentolate, and erythromycin ointment for two weeks/follow up with [facility] --- f/u in [facility]: [phone] Ocular hypertension Continue Cospot eye drops - R eye - BID -continue until f/u with [facility] Complicated UTI (urinary tract infection) Culture grew skin elizabeth Received 5 days of Bactrim --- discontinued Bactrim today History of CVA (cerebrovascular accident) Peripheral vascular disease (HCC) Continue home aspirin, Plavix, and atorvastatin 40mg Essential hypertension Continue home amlodipine 5mg and losartan 50mg Gastroesophageal reflux disease Continue home PPI VTE prophylaxis: DVT Prophylaxis: Ambulation Disposition: WENDY 1-2 days and Home Subjective Patient mumbling and confused today. Intermittently making sense. Not able to meaningfully answer questions. Objective Last Recorded Vitals Blood pressure 117/63, pulse 70, temperature 36.8 ?C (98.3 ?F), resp. rate 16, height 1.854 m (6' 1"), weight 78.7 kg (173 lb 8 oz), SpO2 100%. Physical Exam: Vitals and nursing note reviewed. Constitutional: General: He is not in acute distress. HENT: Mouth/Throat: Mouth: Mucous membranes are moist. Eyes: Comments: R eye clouded, vision reduced on exam Cardiovascular: Rate and Rhythm: Normal rate and regular rhythm. Heart sounds: Normal heart sounds. Pulmonary: Effort: Pulmonary effort is normal. No respiratory distress. Breath sounds: Normal breath sounds. Abdominal: Palpations: Abdomen is soft. Tenderness: There is no abdominal tenderness. Musculoskeletal: General: No swelling. Skin: General: Skin is warm. Neurological: Mental Status: He is alert and oriented to person, place, and time. Mental status is at baseline. Psychiatric: Mood and Affect: Mood normal. Current Active Medications amLODIPine, 5 mg, Oral, Daily aspirin, 81 mg, Oral, q AM atorvastatin, 40 mg, Oral, Daily atropine, 1 drop, Right Eye, BID clopidogrel, 75 mg, Oral, Daily dorzolamide-timolol, 1 drop, Both Eyes, BID erythromycin, 1 Application, Right Eye, 4x daily folic acid, 1 mg, Oral, Daily lansoprazole, 30 mg, Oral, Daily before breakfast losartan, 50 mg, Oral, Daily moxifloxacin, 1 drop, Right Eye, q3h proparacaine, 1 drop, Both Eyes, Once QUEtiapine, 25 mg, Oral, Nightly senna-docusate, 2 tablet, Oral, q12h sodium chloride, 10 mL, Intravenous, q12h CAN sulfamethoxazole-trimethoprim, 160 mg, Oral, q12h tamsulosin, 0.4 mg, Oral, Daily thiamine, 100 mg, Oral, Daily tobramycin 13.57 mg/mL ophthalmic solution, 1 drop, Right Eye, q3h vancomycin, 1 drop, Right Eye, q3h PRN medications: acetaminophen, dextrose, dextrose, glucagon, naloxone, sodium chloride Lab ResultsResults from last 7 days Lab Units 11/13/24 0401 11/12/24 0431 11/11/24 0321 WBC 10*3/uL 8.61 6.92 5.87 HEMOGLOBIN g/dL 11.0* 11.4* 11.3* PLATELETS 10*3/uL 373 389* 389* Results from last 7 daysLab Units 11/13/24 0401 11/12/24 0431 11/11/24 0321 SODIUM mEq/L 139 141 140 POTASSIUM mEq/L 3.7 3.8 3.8 CHLORIDE mEq/L 110* 107 108* CO2 mEq/L 20.3 19.6* 20.1 CREATININE mg/dL 0.88 0.95 0.83 BUN mg/dL 13 15 11 CALCIUM mg/dL 8.8 9.0 8.7 * Peri Chilel MD - 11/12/2024 12:26 PM CDT Subjective NAEO. Pt examined bedside, he is calm and in a good mood, but still very disoriented, he speaks in full words but unintelligible sentences., Trouble word finding. But in good spirits Objective Last Recorded VitalsBlood pressure 104/61, pulse 72, temperature 36.6 ?C (97.8 ?F), resp. rate 17, height 1.854 m (6' 1"), weight 78.7 kg (173 lb 8 oz), SpO2 97%. Physical Exam:General: Awake, alert, Skin: No rashes, normal appearance for race Head: Normocephalic, atraumatic Eyes: Conjunctivae clear, EOMI bilaterally Neck: Normal ROM Lungs: Normal respiratory effort, no wheezing Abdomen: Non-tender, soft, non-distended Extremities: No gross deformities Neurologic: Disoriented & confused Psych: AAO X0, Relevant ResultsReviewed Lab ResultsResults from last 7 days Lab Units 11/12/24 04311/11/2432011/10/24 0612 WBC 10*3/uL 6.92 5.87 6.29 HEMOGLOBIN g/dL 11.4* 11.3* 10.9* HEMATOCRIT % 34.5* 33.9* 33.3* PLATELETS 10*3/uL 389* 389* 402* Results from last 7 daysLab Units 11/12/2443011/11/2432011/10/24 0612 SODIUM mEq/L 141 140 138 POTASSIUM mEq/L 3.8 3.8 3.6 CHLORIDE mEq/L 107 108* 106 CO2 mEq/L 19.6* 20.1 19.2* BUN mg/dL 15 11 12 CREATININE mg/dL 0.95 0.83 0.94 GLUCOSE mg/dL 88 89 74 CALCIUM mg/dL 9.0 8.7 8.7 [id number] years old with PMH of HTN, CAD (s/p CABG), PAD (s/p BL LE stenting), alcohol use disorder, tobacco use, recent admission with right-sided CVA. Patient brought from rehab with right eye pain, seen by ophthalmology, found to have corneal ulcer, started on topical medications p.o. Valtrex. Patient also found to have complicated UTI, started on p.o. antibiotics, pending further workup for altered mentation. Neurology consulted today Assessment & Plan Dementia with behavioral disturbance (HCC) Per patient's family number, he has dementia at baseline, has been acutely agitated in the hospital (likely UTI) likely delirium/sundowning requiring 1: [address] head: Unremarkable Plan: Has been intermittently requiring Zyprexa as needed(last dose 11/07) improving, initially thought to be 2/2 UTI & in the hospital, but currently he is AAO X0 for the past day, very disoriented. I tried to touch base with family/son Chanda X2-no answer. Neurology consulted: Pending recommendations Corneal ulcerHypopyon of right eye Wound eye Cx (+) MRSA Cleared from ophthalmology perspective, continue eyedrops & p.o. Bactrim for wound culture & UTI Complicated UTI (urinary tract infection) In male Plan: Continue p.o.'s Bactrim for 7 days total Follow urine culture History of CVA (cerebrovascular accident) Peripheral vascular disease (HCC) Continue home aspirin + Plavix + atorvastatin 40 Essential hypertensionContinue home amlodipine 5+ losartan 50 ETOH abusePatient has been in rehab prior to admission, no recent alcohol intake Gastroesophageal reflux diseaseContinue home PPI Medication management Patient cannot endorse/are not exactly sure of her home medication dosage and frequency. Pharmacy was consulted to confirm home medications. VTE prophylaxis: SCD/teds for now Disposition: Pending clinical improvement [facility] CD[facility] * Vipul Ramirez PTA - 11/12/2024 11:07 AM CDT Treatment Session Note Patient Name: Rosmery Blevins Today's Date: 11/12/2024 Preferred Language: Danish Assessment & Plan Assessment: Pt presents with AMS and aphasia. Able to perform bed mobility and transfers to sitting with SBA. Adamantly declined to attempt BLE exercises or ambulation and became increasingly agitated with coaxing. Pt noted tugging on penis throughout session and provided with urinal to void. Unable to progress therapy further this date. Pt will continue to progress mobility as tolerated. Subjective Pt nodded yes to therapy Current Problem: Patient Active Problem List Diagnosis Corneal ulcer Essential hypertension ETOH abuse Gastroesophageal reflux disease Peripheral vascular disease (HCC) History of CVA (cerebrovascular accident) Medication management Hypopyon of right eye Dementia with behavioral disturbance (HCC) UTI (urinary tract infection) Complicated UTI (urinary tract infection) Precautions: UE Weight Bearing Status: FWB LE Weight Bearing Status: FWB Medical Precautions: Standard, fall risk Pain: Pain Assessment: DVPRS (11/12/2024 11:30 AM) Pain Type: Acute pain (11/11/2024 9:19 PM) Pain Location: Buttocks (11/11/2024 9:19 PM) Pain Orientation: Left (11/11/2024 2:00 PM) Pain Descriptors: Patient unable to describe (11/11/2024 2:00 PM) Pain Frequency: Constant/continuous (demonstrates pain behaviors whenever left index finger is touched.) (11/11/2024 2:00 PM) Objective General Visit Information: PT Last Visit Date of Last PT Treatment: 11/12/24 General Additional Individuals Present: Yes Others Present: sally Mccallum PT, RN ok'd treatment. Pt presents SF in bed. Nodded yes for therapy. Pt transferred to sitting SBA. Declined to perform BLE exercises or standing/ambulation and became agitated when encouraged. Pt then began tugging at penis and yelling. Provided pt with urinal and pt voided multiple times. Pt sat EOB ~10 mins before transferring BTB. Pt left with all needs met. NAD. RN notified. Activity Tolerance: Fair Cognition Overall Cognitive Status: Impaired Behavior/Cognition: Confused, Requires redirection Orientation Level: Disoriented to place, Disoriented to time, Disoriented to situation Treatment Therapeutic activity: Therapeutic Activity Therapeutic Activity Time Entry: 13 Bed Mobility: Bed Mobility 1: Level of Assistance 1: Setup/clean up assistance Bed Mobility Comments 1: SBA Bed Mobility To/From: Supine to sit on EOB, Sitting EOB to supine Assistive Devices And Adaptive Equipments: Head of bed elevated AM-PAC Basic Mobility: AM-PAC Basic Mobility Inpatient Turning in bed without bedrails: A Little Lying on back to sitting on edge of flat bed: A Little Bed to chair: A Little Standing up from chair: A Little Walk in room: A Lot Climbing 3-5 stairs: A Lot Mobility Inpatient Raw Score: 16 JH-HLM Goal: 5 Mobility: Highest Level of Mobility Performed (JH-HLM) JH-HLM Goal: 5 Highest Level of Mobility Performed (JH-HLM): Sat at edge of bed Goals: Encounter Goals Encounter Goals (Active) Pt will perform bed mobility supine<>sit with supervision using most appropriate or no assistive device prior to discharge from PT services. Start: 11/11/24 Expected End: 12/12/24 Pt will perform transfers sit<>stand with supervision using most appropriate or no assistive device prior to discharge from PT services. Start: 11/11/24 Expected End: 12/12/24 Pt will ambulate 50+ feet with supervision using most appropriate or no assistive device prior to discharge from PT services. Start: 11/11/24 Expected End: 12/12/24 Supervising Physical Therapist: Christ Sinclair PT Patient progress towards current goals and plan of care was discussed in person with supervising Physical Therapist. Treatment Note: If this is the last documented treatment, then it will signify discharge from acute care prior to discharge from the therapy service and will serve as the discharge summary. Vipul Ramirez PTA * Edward Baum OT - 11/11/2024 2:33 PM CDT Evaluation and Treatment Patient Name: Rosmery Blevins Today's Date: 11/11/2024 Preferred Language: Danish Assessment & Plan Current Problem: 69 years old with PMH of HTN, CAD (s/p CABG), PAD (s/p BL LE stenting), alcohol use disorder, tobacco use, recent admission with right-sided CVA. Patient brought from rehab with right eye pain, seen by ophthalmology, found to have corneal ulcer, started on topical medications p.o. Valtrex. Patient also found to have complicated UTI, started on p.o. antibiotics, pending further workup. [Taken from the pt's Internal Medicine progress note by Barbara Chilel MD dated 11/11/2024] PLOF: Per EMR, pt lives with his son in a one story home with zero steps at the primary entrance. Pt has a hospital bed, a RW, a manual wheelchair, and a bedside commode. OT unable to assess the pt's PLOF. [Taken from the pt's OT evaluation interview and the pt's EMR]. CLOF: Pt was lying in bed with the HOB elevated when the OT arrived. Pt was receiving toileting hygiene from the unit TIN DIPPER. A [facility] sitter was present in the room. > Pt able to speak in understandable words but unintelligible sentences. > Pt able to roll in bed without assistance. > Donned socks with max A at bed level > While lying in bed, pt requested via gestures to have the OT hand him his urinal. Pt placed urinal next to him on his left side. > Pt able to do supine <> sit with min A/ SBA. > Pt needed min A to SBA to sit at the EOB. Pt needed L UE support for sitting. Pt with impaired use of his R UE which was hypertonic. > Pt urinated on himself while sitting at the EOB. Pt made no attempt to reach for and use the urinal that was next to him. Pt needed OT's assistance to use the urinal. > S/p urination, the pt's front and back gowns became wet. Pt started attempting to forcibly remove his gowns. OT assisted pt so that he would not tear the cloth. > Now naked, pt able to do bed <> chair transfers with min A. > Pt allowed to assist him in putting on another front gown. Velcro safety bed placed around pt to prevent him from slipping out of chair and onto the floor. Note: OT attempted to have the pt sit up in the chair from => 60 minutes. However, after the OT left the pt's room, OT was notified by the RN that the sitter was saying the pt wanted to return to bed and was trying to do it himself. > OT returned to the pt's room. > OT assisted pt in returning to bed. OT estimates that the pt sat in the bedside chair for ~ 20 minutes. Pt demonstrated being SBA to min A for bed mobility, mod A for UB dressing, max A for LB dressing, max A for toileting hygiene. Pt has impaired cognition and safety awareness. Pt had visible feces under the nail of his left index finger. Pt would not allow the OT to touch his left index finger to clean it, demonstrating significant pain behavior. Pt needed repeated min verbal cues to not touch his face/right eye with his left hand. Pt has significant impairments in R UE function, functional mobility, ADL performance. Pt will benefit from OT tx services to increase the pt's overall function to reduce his burden on his caregivers. OT to continue to follow. Assessment: OT Assessment Results: Impaired ADL status, Impaired upper extremity range of motion, Impaired upper extremity strength, Impaired safe judgment during ADL, Impaired cognition, Impaired functional mobility, Impaired fine motor control, Impaired gross motor control, Impaired IADLs, Impaired right upper extremity Prognosis: Fair Barriers to Discharge: Behavioral issues, Safety awareness Evaluation/Treatment Tolerance: Patient tolerated treatment well, Other (Comment) (Limited by impaired cognition) Strengths: Support of extended family/friends Medical Staff Made Aware: Yes Medical Staff Made Aware Details: Nurse informed, TIN DIPPER informed, Other (comment) ([facility] sitcarrol in the room) Plan: Treatment Plan/Goals Established with Patient/Caregiver: Yes Treatment Interventions: ADL retraining, Cognitive reorientation, Functional transfer training, Patient/family training, UE strengthening/ROM OT Planned Treatments: Activities of Daily Living, Balance training, Cognitive training, Coordination, Equipment training, Mobility training, Neuromuscular reeducation, Pain management, Patient education, Safety education, Therapeutic activities, Therapeutic exercises OT Plan: Skilled OT OT Frequency: 2-4 times per week until discharge OT Duration: Discharge OT - OK to Discharge: Yes (When medically appropriate. Will need continuous supervision. Will need assistance with ADLs and mobility.) Subjective Pt pointed to the urinal on the bedside table. When the OT asked if he wanted the urinal, pt shook his head yes. Pain: Pt did not report having any pain. Pt demonstrated significant pain behavior whenever his left index finger was touch. Note: Left index finger appeared to be reddish in the cuticle area at the base of the nail. Objective General Visit Information: Location: Bedside, Common room Additional Individuals Present: Yes Others Present: Fermin zavala, GRIS, RN; OT miguealngel Nestor arrived at 1430 (Sitter present at all times, Sitter and TIN DIPPER present at various times) Precautions: UE Weight Bearing Status: FWB LE Weight Bearing Status: FWB Medical Precautions: Standard, fall risk Cognition: Overall Cognitive Status: Impaired Behavior/Cognition: Alert, Confused, Impulsive, Requires redirection, Agitated Safety Judgment: Decreased awareness of need for safety Home Living: Type of Home: House Admitted From: Inpatient rehab ([facility] (per CM notes)) Lives With: Son Home Adaptive Equipment: Hospital bed, Rolling walker, Wheelchair-manual, Other (Comment) (bedside commode) Home Layout: One level Home Access: Level entry, Other (Comment) (zero steps) Bathroom Equipment: Bedside commode (Per EMR) Prior Function: Level of Leake: Other (Comment) (Unable to assess from pt) Receives Help From: Family OT General Assessments: Activity Tolerance Activity Tolerance Endurance: Tolerates 10 - 20 min exercise with multiple rests Sitting Balance: Supports self with more than 50% effort using upper extremity, requires therapist assistance Coordination Coordination Movements are Fluid and Coordinated: No (Impaired R UE function. Impaired use of left index finger) Hand Function Hand Function Gross Grasp: Impaired (R UE) Coordination: Impaired (R UE hand, L UE index finger) Balance- Sitting Static Sitting-Balance Support: Feet supported, Left upper extremity supported Level of Assistance: Minimum assistance Extremity Assessments: Right Upper Extremity RUE Assessment RUE Assessment: Exceptions to WFL (Holding in flexor synergy patterm) Left Upper Extremity LUE Assessment LUE Assessment: Exceptions to WFL (Pt has spontaneous movement with his L UE. PROM except for left index finger appears to be WFL) Upper Extremity Tone Upper Extremity Tone Left Upper Extremity: Normal Right Upper Extremity: Hypertonic Treatment: Self-Care: Self Care/Home Management (ADLs) Time Entry: Bathing Assistance: Substantial/Max assistance UE Dressing Assistance: Partial/Mod assistance (mod A) LE Dressing Assistance: Substantial/Max assistance Toileting Assistance: Substantial/Max assistance Bed Mobility: Bed Mobility Bed Mobility: Yes Bed Mobility 1 Level of Assistance 1: Partial/Mod assistance Bed Mobility Comments 1: min A Bed Mobility To/From: Supine to sit on EOB Assistive Devices And Adaptive Equipments: Head of bed elevated, Bed rail Bed Mobility 2 Level of Assistance 2: Partial/Mod assistance Bed Mobility Comments 2: min A Bed Mobility To/From: Sitting EOB to supine Assistive Devices And Adaptive Equipments: Bed rail, Head of bed elevated Transfers: Transfers Transfer: Yes Transfer 1 Technique 1: Stand pivot Level of Assistance 1: Partial/Mod assistance Trials/Comments 1: min A Transfer To/From: Chair, Bed Assistive Devices And Adaptive Equipments: Bed rail (arm of room chair to which he was transferring) Transfers 2 Technique 2: Stand pivot Level of Assistance 2: Partial/Mod assistance Transfer To/From: Bed, Chair Assistive Devices And Adaptive Equipments: Bed rail (arm of room chair in which he was seated.) Therapeutic Activity Therapeutic Activity Time Entry: Therapeutic Activity 1: bed mobility Therapeutic Activity 2: sittng at EOB Therapeutic Activity 3: bed <> chair transfer AM-PAC Daily Activity: Putting on and taking off regular lower body clothing: A Lot Bathing (including washing, rinsing, drying): A Lot Toileting, which includes using toilet, bedpan or urinal: A Lot Putting on and taking off regular upper body clothing: A Lot Taking care of personal grooming such as brushing teeth: A Lot Eating Meals: A Lot AM-PAC Daily Activity Raw Score: 12 Mobility Highest Level of Mobility Performed (JH-HLM): Transferred to chair/commode Patient Education: Education Documentation Occupational Therapy Plan of Care, taught by Edward Baum OT at 11/11/2024 2:43 PM. Learner: Patient Readiness: Acceptance Method: Explanation, Demonstration Response: No Evidence of Learning, Needs Reinforcement Education Comments No comments found. Goals: Encounter Goals Encounter Goals (Active) STG - Maintains static sitting balance without upper extremity support for => 10 minutes for improved balance for seated ADLs and functional mobility (Progressing) Start: 11/11/24 Expected End: 11/22/24 Pt will tolerate sitting in a room chair for => 2 hours for 2 times in a calendar week to increase his activity tolerance for OOB activities. (Progressing) Start: 11/11/24 Expected End: 11/29/24 STG - Patient is able to wipe his full face with a washcloth with min A for increased independence with grooming skills. Start: 11/11/24 Expected End: 11/22/24 Patient will tolerate mobilizations and manual therapy of his right UE to promote neuromuscular re-education and increased functional use of his R UE. Start: 11/11/24 Expected End: 11/22/24 LTG - Patient will transfer to/from room toilet and/or bedside commode with setup/ supervision using an assistive device as needed. (Progressing) Start: 11/11/24 Expected End: 11/29/24 Treatment Note: If this is the last documented treatment, then it will signify discharge from acute care prior to discharge from the therapy service and will serve as the discharge summary. Edward Baum OT * Mary Haney RN - 11/11/2024 2:24 PM CDT CASE MANAGEMENT ROUTINE DISCHARGE PLAN NOTE LOS: 4 Barriers to Discharge: Pending final culture results. C/w Vancomycin, Tobramycin, Moxifloxacin and PO Valtrex. DISCHARGE PLAN A: Home/ family. DISCHARGE PLAN B: Home/HH. WENDY: >1-2 Days. Mary Haney RN, BSN-CM Finger Grip Machine Operator Medicine Service PH: * Christ Yahir, PT - 11/11/2024 10:30 AM CDT Physical Therapy Treatment Session Note Patient Name: Rosmery Blevins Today's Date: 11/11/2024 Preferred Language: Danish Assessment & Plan Assessment: Pt had limited participation with PT, difficult to mobilize due to poor cognition and pain. Pt will continue to benefit from PT services to maximize independence and return to OF. Plan: Treatment Plan/Goals Established with Patient/Caregiver: Yes Treatment/Interventions: Balance training, Bed mobility training, Functional activities, Gait training, Neuromuscular re-education, Therapeutic exercises, Transfer training, Wheelchair assessment and management PT Plan: Skilled PT PT Frequency: 3-5 times per week until discharge PT Discharge Recommendations: nursing home facility placement, Home health PT (pending progress) PT Recommended Transfer Status: Assistive equipment (Comment) Therapy discharge recommendations are made by determining the patient's prior level of function, assessing current function level and establishing rehab potential. The overall discharge plan may be affected by input from Physicians, Care Coordination, medical condition/status, family support and insurance benefits. Subjective Precautions: LE Weight Bearing Status: FWB Pain: None reported Health Conditions Health Conditions Pain Interference with Therapy Activities: Occasionally Objective General Visit Information: PT Last Visit PT Received On: 11/11/24 Activity Tolerance: Poor Cognition Overall Cognitive Status: Impaired Treatment Bed Mobility: Bed Mobility: Bed Mobility To/From: Supine to sit on EOB Level of Assistance: Partial/moderate assistance Transfers: Transfers: Transfer To/From: [id number] Level of Assistance: Partial/moderate assistance Gait Training Activity: Distance (enter in feet): 3' Gait Training Activity: Indoor surface Level of Assistance: Partial/moderate assistance Assistive Devices And Adaptive Equipments: TURBINE ASSEMBLER Post-Therapy Checklist: Pt supine in bed, HOB elevated >30 degrees, Call light within reach, and RN informed/aware AM-PAC Basic Mobility: AM-PAC Basic Mobility Inpatient Turning in bed without bedrails: A Lot Lying on back to sitting on edge of flat bed: A Lot Bed to chair: A Lot Standing up from chair: A Lot Walk in room: A Lot Climbing 3-5 stairs: A Lot Mobility Inpatient Raw Score: 12 -[facility] Goal: 4 Education Documentation Physical Therapy Plan of Care, taught by Christ Sinclair PT at 11/11/2024 4:28 PM. Learner: Patient Readiness: Acceptance Method: Explanation Response: Needs Reinforcement Education Comments No comments found. Goals: Encounter Goals Encounter Goals (Active) Pt will perform bed mobility supine<>sit with supervision using most appropriate or no assistive device prior to discharge from PT services. Start: 11/11/24 Expected End: 12/12/24 Pt will perform transfers sit<>stand with supervision using most appropriate or no assistive device prior to discharge from PT services. Start: 11/11/24 Expected End: 12/12/24 Pt will ambulate 50+ feet with supervision using most appropriate or no assistive device prior to discharge from PT services. Start: 11/11/24 Expected End: 12/12/24 Treatment Note: If this is the last documented treatment, then it will signify discharge from acute care prior to discharge from the therapy service and will serve as the discharge summary. Electronic Signature:Christ Sinclair PT, DPT, [place], [place] * Peri Chilel MD - 11/11/2024 8:36 AM CDT Subjective NAEO. Pt examined bedside, more confused today than normal, AAO X0, shouting little bit speaking to people that are not in room Objective Last Recorded Vitals Blood pressure 117/63, pulse 64, temperature 36.7 ?C (98.1 ?F), resp. rate 18, height 1.854 m (6' 1"), weight 78.7 kg (173 lb 8 oz), SpO2 98%. Physical Exam: General: Awake, alert Skin: No rashes, normal appearance for race Head: Normocephalic, atraumatic Eyes: Conjunctivae clear, EOMI bilaterally Neck: Normal ROM Lungs: Normal respiratory effort, no wheezing Abdomen: Non-tender, soft, non-distended Extremities: No gross deformities Neurologic: Altered Psych: AAO X0, somewhat agitated Relevant Results Reviewed Lab Results Results from last 7 days Lab Units 11/11/2432011/10/24 0611/09/24 0620 WBC 10*3/uL 5.87 6.29 6.23 HEMOGLOBIN g/dL 11.3* 10.9* 10.5* HEMATOCRIT % 33.9* 33.3* 32.3* PLATELETS 10*3/uL 389* 402* 395* PLATELETS ESTIMATED -- -- Increased* Results from last 7 days Lab Units 11/11/2432011/10/2461111/09/24 0620 SODIUM mEq/L 140 138 139 POTASSIUM mEq/L 3.8 3.6 3.5 CHLORIDE mEq/L 108* 106 105 CO2 mEq/L 20.1 19.2* 20.0 BUN mg/dL 11 12 13 CREATININE mg/dL 0.83 0.94 0.84 GLUCOSE mg/dL 89 74 78 CALCIUM mg/dL 8.7 8.7 8.8 Assessment 69 years old with PMH of HTN, CAD (s/p CABG), PAD (s/p BL LE stenting), alcohol use disorder, tobacco use, recent admission with right-sided CVA. Patient brought from rehab with right eye pain, seen by ophthalmology, found to have corneal ulcer, started on topical medications p.o. Valtrex. Patient also found to have complicated UTI, started on p.o. antibiotics, pending further workup. Assessment & Plan Corneal ulcer Ophthalmology following: Pending improvement & clearance Wound eye Cx (+) MRSA Plan: Optho following -evaluating daily Continue p.o. Bactrim to cover wound eye MRSA + UTI Complicated UTI (urinary tract infection) In male Plan: Continue p.o.'s Bactrim for 7 days total Follow urine culture Dementia with behavioral disturbance (HCC) Per patient's family number, he has dementia at baseline, has been acutely agitated in the hospital (likely UTI) likely delirium requiring 1: 1 sitter Plan: Has been intermittently requiring Zyprexa as needed(last dose 11/07) improving, will hold off on psych consult, I believe acute agitation was 2/2 new occult UTI found Try to avoid restraints CT Head today as more confused History of CVA (cerebrovascular accident) Peripheral vascular disease (HCC) Continue home aspirin + Plavix + atorvastatin 40 Essential hypertension Continue home amlodipine 5+ losartan 50 ETOH abuse Patient has been in rehab prior to admission, no recent alcohol intake Gastroesophageal reflux disease Continue home PPI Medication management Patient cannot endorse/are not exactly sure of her home medication dosage and frequency. Pharmacy was consulted to confirm home medications. Hypopyon of right eye VTE prophylaxis: SCD/teds for now Disposition: Pending clinical improvement, ophthalmology clearance, Peri Chilel MD [facility] - Hospitalist * Katey Caro MD - 11/11/2024 1:47 AM CDT OPHTHALMOLOGY Progress NOTE PATIENT NAME: Rosmery Blevins PATIENT : 1955 MR #: [id number] ROOM: [facility] [place] DATE OF CONSULT: 11/11/2024 CONSULTING ATTENDING: Dr. Arnold COLBERT CONSULTING RESIDENT: Katey Caro MD REASON FOR CONSULT: R eye vision loss x4 days CHART REVIEWED: YES HISTORY OF PRESENT ILLNESS: Rosmery Blevins is a 69 y.o. male with a PMH of PMH of CAD s/p CABG, PAD, EtOH use, stroke, and unknown POH presenting from [facility] with vision loss from right eye for four days. Patient is AAOx0 on exam and cannot follow commands. Contacts were noted on exam and removed Interval events: mental status still altered, denies pain. MEDICATIONS: Current Facility-Administered Medications: acetaminophen (Tylenol) tablet 650 mg, 650 mg, Oral, q6h PRN, Chriss Flores MD, 650 mg at 11/08/242110 amLODIPine (Norvasc) tablet 5 mg, 5 mg, Oral, Daily, Chriss Flores MD, 5 mg at 11/10/24 08 aspirin chewable tablet 81 mg, 81 mg, Oral, q AM, Chriss Flores MD, 81 mg at 11/10/24 0609 atorvastatin (Lipitor) tablet 40 mg, 40 mg, Oral, Daily, Chriss Flores MD, 40 mg at 11/10/24 0844 atropine 1 % ophthalmic solution 1 drop, 1 drop, Right Eye, BID, Alice Merino MD, 1 drop at 11/10/24 1757 calcium gluconate 1g in NaCl 50mL IVPB 1 g, 1 g, Intravenous, PRN, Chriss Flores MD [Held by provider] ciprofloxacin (Cipro) tablet 500 mg, 500 mg, Oral, q12h CAN, Peri Chilel MD, 500 mg at 11/08/24 0804 clopidogrel (Plavix) tablet 75 mg, 75 mg, Oral, Daily, Chriss Flores MD, 75 mg at 11/10/24 08 dextrose 50 % solution 12.5 g, 12.5 g, Intravenous, PRN, Chriss Flores MD dextrose 50 % solution 25 g, 25 g, Intravenous, PRN, Chriss Flores MD dorzolamide-timolol (Cosopt) 2-0.5 % ophthalmic solution 1 drop, 1 drop, Both Eyes, BID, Krista Yu MD, 1 drop at 11/10/24 1757 erythromycin (Romycin) 5 mg/g ophthalmic ointment 1 Application, 1 Application, Right Eye, 4x daily, Krista Yu MD, 1 Application at 11/10/24 2100 fluorescein 1 MG ophthalmic strip 2 strip, 2 strip, Both Eyes, Once, Luis Wood MD folic acid (Folvite) tablet 1 mg, 1 mg, Oral, Daily, Chriss Flores MD, 1 mg at 11/10/24 0844 glucagon injection 1 mg, 1 mg, Intramuscular, PRN, Chriss Flores MD lansoprazole (First - Lansoprazole) suspension 30 mg, 30 mg, Oral, Daily before breakfast, Chriss Flores MD, 30 mg at 11/10/24 0609 losartan (Cozaar) tablet 50 mg, 50 mg, Oral, Daily, Chriss Flores MD, 50 mg at 11/10/24 0844 magnesium oxide (Mag-Ox) tablet 800 mg, 800 mg, Oral, PRN, Chriss Flores MD magnesium sulfate in D5W IVPB 1 g, 1 g, Intravenous, PRN, Chriss Flores MD magnesium sulfate IVPB 2 g, 2 g, Intravenous, PRN, Chriss Flores MD magnesium sulfate IVPB 4 g, 4 g, Intravenous, PRN, Chriss Flores MD moxifloxacin (Vigamox) 0.5 % ophthalmic solution 1 drop, 1 drop, Right Eye, q2h, Krista Yu MD, 1 drop at 11/10/24 2300 naloxone (Narcan) injection 0.04 mg, 0.04 mg, Intravenous, PRN, Chriss Flores MD oxyCODONE (Roxicodone) solution 2.5 mg, 2.5 mg, Oral, q6h PRN, Chriss Flores MD, 2.5 mg at 11/10/242007 potassium & sodium phosphates (Phos-NaK) 280-160-250 MG packet 2 packet, 2 packet, Oral, PRN, Chriss Flores MD potassium chloride CR (Klor-Con M20) ER tablet 20 mEq, 20 mEq, Oral, PRN, Chriss Flores MD, 20 mEq at 11/09/24 112 potassium chloride CR (Klor-Con M20) ER tablet 40 mEq, 40 mEq, Oral, PRN, Chriss Flores MD potassium chloride IVPB 10 mEq, 10 mEq, Intravenous, PRN, Chriss Flores MD Potassium chloride solution 20 mEq, 20 mEq, Nasogastric, PRN, Chriss Flores MD potassium phosphate 30 mmol/260 mL NS infusion (premix) 30 mmol, 30 mmol, Intravenous, PRN, Chriss Flores MD potassium phosphates 15 mmol in sodium chloride 0.9 % 100 mL infusion, 15 mmol, Intravenous, PRDarien, Chriss Flores MD proparacaine (Alcaine) 0.5 % ophthalmic solution 1 drop, 1 drop, Both Eyes, Once, Luis Wood MD QUEtiapine (SEROquel) tablet 25 mg, 25 mg, Oral, Nightly, Chriss Flores MD, 25 mg at 11/10/242020 senna-docusate (Nimisha-Colace) 8.6-50 mg per tablet 2 tablet, 2 tablet, Oral, q12h, Chriss Flores MD, 2 tablet at 11/10/24 0609 sodium chloride (NS) 0.9 % flush 10 mL, 10 mL, Intravenous, q12h CAN, Chriss Flores MD, 10 mL at 11/10/242019 sodium chloride (NS) 0.9 % flush 10 mL, 10 mL, Intravenous, PRN, Chriss Flores MD sodium phosphates 15 mmol in sodium chloride 0.9 % 100 mL IVPB, 15 mmol, Intravenous, PRN, Chriss Flores MD sodium phosphates 30 mmol in sodium chloride 0.9 % 250 mL IVPB, 30 mmol, Intravenous, PRN, Chriss Flores MD sulfamethoxazole-trimethoprim (Bactrim DS) 800-160 MG per tablet 160 mg, 160 mg, Oral, q12h, Peri Chilel MD, 160 mg at 11/10/24 1405 tamsulosin (Flomax) 24 hr capsule 0.4 mg, 0.4 mg, Oral, Daily, Chriss Flores MD, 0.4 mg at 11/10/24 0844 thiamine (Vitamin B-1) tablet 100 mg, 100 mg, Oral, Daily, Chriss Flores MD, 100 mg at 11/10/24 0844 tobramycin 13.57 mg/mL ophthalmic solution, 1 drop, Right Eye, q2h, Krista Yu MD, 1 drop at 11/10/24 2307 valACYclovir (Valtrex) tablet 1,000 mg, 1,000 mg, Oral, TID, Luis Wood MD, 1,000 mg at 11/10/24 1756 vancomycin (Vancocin) 50 mg/mL ophthalmic solution 1 drop, 1 drop, Right Eye, q2h, Krista Yu MD, 1 drop at 11/10/24 2307 Last Recorded Vitals Blood pressure 108/61, pulse 70, temperature 36.8 ?C (98.3 ?F), resp. rate 17, height 1.854 m (6' 1"), weight 78.7 kg (173 lb 8 oz), SpO2 98%. Ophthalmologic Exam : Base Eye Exam Visual Acuity (Snellen - Linear) Right Left Near sc BTL BTL Tonometry (Tonopen, 1:46 AM) Right LeftPressure 15 14 Neuro/Psych Mood/Affect: AAOxo, does not follow commands Slit Lamp and Fundus Exam External Exam Right LeftExternal Normal Normal Slit Lamp Exam Right LeftLids/Lashes Normal Normal Conjunctiva/Sclera 1+ injection White and quiet Cornea Small central circular epi-defect improving with resolved infiltrate Clear Anterior Chamber 40% layered hypopyon - improved Deep and quiet Iris Round and reactive Round and reactive Lens 2+ NS Clear Anterior Vitreous Normal Normal Eye exam last edited by Katey Caro MD on 11/11/2024 at 01:47 CDT IMAGING: No CT head results found for the past 14 days No MRI head results found for the past 14 days PROCEDURES PERFORMED: DIAGNOSES/RECOMMENDATION:#Corneal Ulcer, Right Eye #Hypopyon, right eye - Corneal culture was obtained - positive for MRSA sensitive to vancomycin and bactrim - continue fortified vancomycin and tobramycin q2h (11/06-) - continue moxifloxacin q2h - continue erythromycin ophthalmic ointment QID to periocular region, Right eye - continue cyclopentolate 1% (or atropine 1% if unavailable) BID, Right eye - continue PO valtrex 1g TID (renal dosing adjustment per primary); ok to stop after final culture results - Eye drops ordered by ophthalmology, please keep drops on ice when not in use - Continue abx per primary #Ocular hypertension, right eye- Continue cospot BID, right eye Please page the ophthalmology on-call resident if any changes develop or if you have any questions or concerns. Thank you for the consult. Katey Caro MDOphthalmology PGY3 Cosigned by Ann Barrett MD at 11/11/2024 9:53 AM CDT * Christ Sinclair, PT - 11/10/2024 2:00 PM CDT Evaluation and Treatment Note Patient Name: Rosmery Blevins Today's Date: 11/10/2024 Preferred Language: Danish Assessment & Plan Assessment: Prognosis: Fair Barriers to Discharge: Medical diagnosis Evaluation/Treatment Tolerance: Patient limited by pain AM-PAC Basic Mobility: Turning in bed without bedrails: A Lot Lying on back to sitting on edge of flat bed: A Lot Bed to chair: A Lot Standing up from chair: A Lot Walk in room: A Lot Climbing 3-5 stairs: A Lot Mobility Inpatient Raw Score: 12 -[facility] Goal: 4 Plan: Treatment Plan/Goals Established with Patient/Caregiver: Yes Treatment/Interventions: Balance training, Bed mobility training, Functional activities, Gait training, Neuromuscular re-education, Therapeutic exercises, Transfer training, Wheelchair assessment and management PT Plan: Skilled PT PT Frequency: 3-5 times per week until discharge PT Discharge Recommendations: nursing home facility placement, Home health PT (pending progress) PT Recommended Transfer Status: Assistive equipment (Comment) Therapy discharge recommendations are made by determining the patient's prior level of function, assessing current function level and establishing rehab potential. The overall discharge plan may be affected by input from Physicians, Care Coordination, medical condition/status, family support and insurance benefits. Subjective Current Problem:Per H&P: 69 years old with PMH of HTN, CAD (s/p CABG), PAD (s/p BL LE stenting), alcohol use disorder, tobacco use, recent admission with right-sided CVA (initial NIHSS 25) with acute left MCA/TIN DIPPER infarction (s/p tenecteplase) Patient presented from rehab with right eye pain. He was seen by ophthalmology, found to have corneal ulcer, hypopyon, started on topical vancomycin, tobramycin, moxifloxacin, cyclopentolate, p.o. Valtrex (still pending finalization of the recommendations) requested to admit for pain control Upon my encounter, patient was sleeping, he denied ongoing pain, when asked about his medication, he answers by "I do not remember". Rest of the history is limited (as patient is sleepy and cannot remember. I tried to look for records sent from the rehab but I did not find while in the ED) Pain:B LE pain, not quantified Vital Signs:Vital Signs Temp: 36.6 ?C (97.8 ?F) Temp Source: Oral Heart Rate: 74 Resp: 18 BP: 120/69 MAP (mmHg): 86 BP Location: Left arm Patient Position: Lying Health ConditionsPain Interference with Therapy Activities: Occasionally Home Living:Type of Home: House Lives With: Son Prior Level of Function:Level of Leake: (Unable to assess) Objective Precautions:LE Weight Bearing Status: FWB Cognition:Overall Cognitive Status: Impaired Functional Assessments:Bed Mobility: Bed Mobility To/From: Supine to sit on EOB Level of Assistance: Partial/moderate assistance Transfers: Transfer To/From: [id number] Level of Assistance: Partial/moderate assistance Gait Training Activity: Distance (enter in feet): 2 side steps to R Gait Training Activity: Indoor surface Level of Assistance: Partial/moderate assistance Assistive Devices And Adaptive Equipments: [employer]ER Balance:Static Sitting Balance: Partial/moderate assistance Dynamic Sitting Balance: Partial/moderate assistance Static Standing Balance: Partial/moderate assistance Dynamic Standing Balance: Partial/moderate assistance Extremity Assessments:LLE Assessment LLE Assessment: WFL RLE Assessment RLE Assessment: WFL Activity Tolerance:Poor TreatmentPost-Therapy Checklist: Pt supine in bed, HOB elevated >30 degrees, Call light within reach, and RN informed/aware Patient Education:Education Documentation Physical Therapy Plan of Care, taught by Christ Sinclair PT at 11/11/2024 4:28 PM. Learner: Patient Readiness: Acceptance Method: Explanation Response: Needs Reinforcement Education CommentsNo comments found. Goal:Encounter Goals Encounter Goals (Active) Pt will perform bed mobility supine<>sit with supervision using mostappropriate or no assistive device prior to discharge from PT services. Start: 11/11/24 Expected End: 12/12/24 Pt will perform transfers sit<>stand with supervision using most appropriate or no assistive device prior to discharge from PT services. Start: 11/11/24 Expected End: 12/12/24 Pt will ambulate 50+ feet with supervision using most appropriate or no assistive device prior to discharge from PT services. Start: 11/11/24 Expected End: 12/12/24 Treatment Note: If this is the last documented treatment, then it will signify discharge from acute care prior to discharge from the therapy service and will serve as the discharge summary. Electronic Signature:Christ Sinclair PT, DPT, [place], [place] * Peri Chilel MD - 11/10/2024 8:27 AM CDT Subjective NAEO. Pt examined bedside, in good spirits, laughing with me, no complaints, Objective Last Recorded Vitals Blood pressure 129/70, pulse 64, temperature 36.7 ?C (98.1 ?F), resp. rate 18, height 1.854 m (6' 1"), weight 78.7 kg (173 lb 8 oz), SpO2 97%. Physical Exam: General: Awake, alert Skin: No rashes, normal appearance for race Head: Normocephalic, atraumatic Eyes: Conjunctivae clear, EOMI bilaterally Neck: Normal ROM Lungs: Normal respiratory effort, no wheezing Abdomen: Non-tender, soft, non-distended Extremities: No gross deformities Neurologic: Normal mental status Psych: Normal Relevant Results Reviewed Lab Results Results from last 7 days Lab Units 11/10/24 0611/09/24 0611/08/24 0506 WBC 10*3/uL 6.29 6.23 6.68 HEMOGLOBIN g/dL 10.9* 10.5* 10.9* HEMATOCRIT % 33.3* 32.3* 33.5* PLATELETS 10*3/uL 402* 395* 405* PLATELETS ESTIMATED -- Increased* -- Results from last 7 days Lab Units 11/10/24 0612 11/09/24 0611/08/24 0506 SODIUM mEq/L 138 139 138 POTASSIUM mEq/L 3.6 3.5 3.8 CHLORIDE mEq/L 106 105 106 CO2 mEq/L 19.2* 20.0 20.6 BUN mg/dL 12 13 10 CREATININE mg/dL 0.94 0.84 0.75 GLUCOSE mg/dL 74 78 97 CALCIUM mg/dL 8.7 8.8 8.8 Assessment 69 years old with PMH of HTN, CAD (s/p CABG), PAD (s/p BL LE stenting), alcohol use disorder, tobacco use, recent admission with right-sided CVA. Patient brought from rehab with right eye pain, seen by ophthalmology, found to have corneal ulcer, started on topical medications p.o. Valtrex. Patient also found to have complicated UTI, started on p.o. antibiotics, pending further workup. Assessment & Plan Corneal ulcer Ophthalmology following: Pending improvement & clearance Wound eye Cx (+) MRSA Plan: Optho following -evaluating daily Continue p.o. Bactrim to cover wound eye MRSA + UTI Complicated UTI (urinary tract infection) In male Plan: Continue p.o.'s Bactrim for 7 days total Follow urine culture Dementia with behavioral disturbance (HCC) Per patient's family number, he has dementia at baseline, has been acutely agitated in the hospital (likely UTI) likely delirium requiring 1: 1 sitter Plan: Has been intermittently requiring Zyprexa as needed(last dose 11/07) improving, will hold off on psych consult, I believe acute agitation was 2/2 new occult UTI found Try to avoid restraints History of CVA (cerebrovascular accident) Peripheral vascular disease (HCC) Continue home aspirin + Plavix + atorvastatin 40 Essential hypertension Continue home amlodipine 5+ losartan 50 ETOH abuse Patient has been in rehab prior to admission, no recent alcohol intake Gastroesophageal reflux disease Continue home PPI Medication management Patient cannot endorse/are not exactly sure of her home medication dosage and frequency. Pharmacy was consulted to confirm home medications. Hypopyon of right eye VTE prophylaxis: SCD/teds for now Disposition: Pending clinical improvement, ophthalmology clearance Peri Chilel MD [facility] - Hospitalist * Alice Merino MD - 11/09/2024 9:22 AM CDT OPHTHALMOLOGY Progress NOTE PATIENT NAME: Rosmery Blevins PATIENT : 1955 MR #: [id number] ROOM: [facility] DATE OF CONSULT: 11/09/2024 CONSULTING ATTENDING: Dr. Arnold COLBERT CONSULTING RESIDENT: Alice Merino MD REASON FOR CONSULT: R eye vision loss x4 days CHART REVIEWED: YES HISTORY OF PRESENT ILLNESS: Rosmery Blevins is a 69 y.o. male with a PMH of PMH of CAD s/p CABG, PAD, EtOH use, stroke, and unknown POH presenting from [facility] with vision loss from right eye for four days. Patient is AAOx0 on exam and cannot follow commands. Contacts were noted on exam and removed Interval events: mental status still altered, but very alert this morning. Denies pain. MEDICATIONS: Current Facility-Administered Medications: acetaminophen (Tylenol) tablet 650 mg, 650 mg, Oral, q6h PRN, Chriss Flores MD, 650 mg at 11/08/242110 amLODIPine (Norvasc) tablet 5 mg, 5 mg, Oral, Daily, Chriss Flores MD, 5 mg at 11/09/24 0912 aspirin chewable tablet 81 mg, 81 mg, Oral, q AM, Chriss Flores MD, 81 mg at 11/09/24 0615 atorvastatin (Lipitor) tablet 40 mg, 40 mg, Oral, Daily, Chriss Flores MD, 40 mg at 11/09/24 09 atropine 1 % ophthalmic solution 1 drop, 1 drop, Right Eye, BID, Alice Merino MD, 1 drop at 11/09/24 0914 calcium gluconate 1g in NaCl 50mL IVPB 1 g, 1 g, Intravenous, PRN, Chriss Flores MD [Held by provider] ciprofloxacin (Cipro) tablet 500 mg, 500 mg, Oral, q12h CAN, Peri Chilel MD, 500 mg at 11/08/24 0804 clopidogrel (Plavix) tablet 75 mg, 75 mg, Oral, Daily, Chriss Flores MD, 75 mg at 11/09/24 09 dextrose 50 % solution 12.5 g, 12.5 g, Intravenous, PRN, Chriss Flores MD dextrose 50 % solution 25 g, 25 g, Intravenous, PRN, Chriss Flores MD dorzolamide-timolol (Cosopt) 2-0.5 % ophthalmic solution 1 drop, 1 drop, Both Eyes, BID, Krista Yu MD, 1 drop at 11/09/24 0914 erythromycin (Romycin) 5 mg/g ophthalmic ointment 1 Application, 1 Application, Right Eye, 4x daily, Krista Yu MD, 1 Application at 11/09/24 0914 fluorescein 1 MG ophthalmic strip 2 strip, 2 strip, Both Eyes, Once, Luis Wood MD folic acid (Folvite) tablet 1 mg, 1 mg, Oral, Daily, Chriss Flores MD, 1 mg at 11/09/24 0913 glucagon injection 1 mg, 1 mg, Intramuscular, PRN, Chriss Flores MD lansoprazole (First - Lansoprazole) suspension 30 mg, 30 mg, Oral, Daily before breakfast, Chriss Flores MD, 30 mg at 11/09/24 0615 losartan (Cozaar) tablet 50 mg, 50 mg, Oral, Daily, Chriss Flores MD, 50 mg at 11/09/24 0913 magnesium oxide (Mag-Ox) tablet 800 mg, 800 mg, Oral, PRN, Chriss Flores MD magnesium sulfate in D5W IVPB 1 g, 1 g, Intravenous, PRN, Chriss Flores MD magnesium sulfate IVPB 2 g, 2 g, Intravenous, PRN, Chriss Flores MD magnesium sulfate IVPB 4 g, 4 g, Intravenous, PRN, Chriss Flores MD moxifloxacin (Vigamox) 0.5 % ophthalmic solution 1 drop, 1 drop, Right Eye, q2h, Krista Yu MD, 1 drop at 11/09/24 0914 naloxone (Narcan) injection 0.04 mg, 0.04 mg, Intravenous, PRN, Chriss Flores MD oxyCODONE (Roxicodone) solution 2.5 mg, 2.5 mg, Oral, q6h PRN, Chriss Flores MD, 2.5 mg at 11/09/24 0911 potassium & sodium phosphates (Phos-NaK) 280-160-250 MG packet 2 packet, 2 packet, Oral, PRN, Chriss Flores MD potassium chloride CR (Klor-Con M20) ER tablet 20 mEq, 20 mEq, Oral, PRN, Chriss Flores MD potassium chloride CR (Klor-Con M20) ER tablet 40 mEq, 40 mEq, Oral, PRN, Chriss Flores MD potassium chloride IVPB 10 mEq, 10 mEq, Intravenous, PRN, Chriss Flores MD Potassium chloride solution 20 mEq, 20 mEq, Nasogastric, PRN, Chriss Flores MD potassium phosphate 30 mmol/260 mL NS infusion (premix) 30 mmol, 30 mmol, Intravenous, PRN, Chriss Flores MD potassium phosphates 15 mmol in sodium chloride 0.9 % 100 mL infusion, 15 mmol, Intravenous, PRN, Chriss Flores MD proparacaine (Alcaine) 0.5 % ophthalmic solution 1 drop, 1 drop, Both Eyes, Once, Luis Wood MD QUEtiapine (SEROquel) tablet 25 mg, 25 mg, Oral, Nightly, Chriss Flores MD, 25 mg at 11/08/24 2112 senna-docusate (Nimisha-Colace) 8.6-50 mg per tablet 2 tablet, 2 tablet, Oral, q12h, Chriss Flores MD, 2 tablet at 11/09/24 0615 sodium chloride (NS) 0.9 % flush 10 mL, 10 mL, Intravenous, q12h CAN, Chriss Flores MD, 10 mL at 11/09/24 0913 sodium chloride (NS) 0.9 % flush 10 mL, 10 mL, Intravenous, PRN, Chriss Flores MD sodium phosphates 15 mmol in sodium chloride 0.9 % 100 mL IVPB, 15 mmol, Intravenous, PRN, Chriss Flores MD sodium phosphates 30 mmol in sodium chloride 0.9 % 250 mL IVPB, 30 mmol, Intravenous, PRN, Chriss Flores MD sulfamethoxazole-trimethoprim (Bactrim DS) 800-160 MG per tablet 160 mg, 160 mg, Oral, q12h, Peri Chilel MD, 160 mg at 11/09/24 0100 tamsulosin (Flomax) 24 hr capsule 0.4 mg, 0.4 mg, Oral, Daily, Chriss Flores MD, 0.4 mg at 11/09/24 0912 thiamine (Vitamin B-1) tablet 100 mg, 100 mg, Oral, Daily, Chriss Flores MD, 100 mg at 11/09/24 0912 tobramycin 13.57 mg/mL ophthalmic solution, 1 drop, Right Eye, q2h, Krista Yu MD, 1 drop at 11/09/24 0914 valACYclovir (Valtrex) tablet 1,000 mg, 1,000 mg, Oral, TID, Luis Wood MD, 1,000 mg at 11/09/24 0912 vancomycin (Vancocin) 50 mg/mL ophthalmic solution 1 drop, 1 drop, Right Eye, q2h, Krista Yu MD, 1 drop at 11/09/24 0914 Last Recorded Vitals Blood pressure 130/68, pulse 67, temperature 36.8 ?C (98.2 ?F), resp. rate 17, height 1.854 m (6' 1"), weight 78.7 kg (173 lb 8 oz), SpO2 98%. Ophthalmologic Exam : Base Eye Exam Visual Acuity (Snellen - Linear) Right Left Near cc BTL BTL Likely at least CF OU Tonometry (Tonopen, 9:21 AM) Right LeftPressure 16 10 Pupils Dark Light Shape React APDRight 3 3 Round Minimal none by reverse Left 3 2 Round Brisk None Visual FieldsUnable secondary to mentation Extraocular Movement Right LeftFull Full Neuro/Psych Mood/Affect: AAOxo, does not follow commands Slit Lamp and Fundus Exam External Exam Right LeftExternal Normal Normal Slit Lamp Exam Right LeftLids/Lashes Normal Normal Conjunctiva/Sclera 1+ injection White and quiet Cornea Small central circular epi-defect improving with resolved infiltrate Clear Anterior Chamber 40% layered hypopyon Deep and quiet Iris Round and reactive Round and reactive Lens 2+ NS Clear Anterior Vitreous Normal Normal Eye exam last edited by Alice Merino MD on 11/09/2024 at 09:22 CDT IMAGING: No CT head results found for the past 14 days No MRI head results found for the past 14 days PROCEDURES PERFORMED:B-Scan Right eye (OD): no retinal masses, detachment, or tears seen, no signs of vitritis. Vitreous debris equal Left eye (OS): no retinal mass, detachment, or tears seen, no signs of vitritis, Vitreous debris equal DIAGNOSES/RECOMMENDATION:#Corneal Ulcer, Right Eye #Hypopyon, right eye - Corneal culture was obtained - positive for MRSA sensitive to vancomycin and bactrim - continue fortified vancomycin and tobramycin q2h (11/06-) - continue moxifloxacin q2h - continue erythromycin ophthalmic ointment QID to periocular region, Right eye - continue cyclopentolate 1% (or atropine 1% if unavailable) BID, Right eye - continue PO valtrex 1g TID (renal dosing adjustment per primary); ok to stop after final culture results - Eye drops ordered by ophthalmology, please keep drops on ice when not in use - Continue abx per primary #Ocular hypertension, right eye- on cospot BID, right eye Please page the ophthalmology on-call resident if any changes develop or if you have any questions or concerns. Thank you for the consult. Alice Merino DO [facility] | [facility] Ophthalmology PGY2 Cosigned by Ann Barrett MD at 11/11/2024 9:53 AM CDT * Peri Chilel MD - 11/09/2024 8:26 AM CDT Subjective NAEO. Pt examined bedside, calm, not agitated, doing well Objective Last Recorded VitalsBlood pressure 130/68, pulse 67, temperature 36.8 ?C (98.2 ?F), resp. rate 17, height 1.854 m (6' 1"), weight 78.7 kg (173 lb 8 oz), SpO2 98%. Physical Exam:General: Awake, alert Skin: No rashes, normal appearance for race Head: Normocephalic, atraumatic Eyes: Conjunctivae clear, EOMI bilaterally Neck: Normal ROM Lungs: Normal respiratory effort, no wheezing Abdomen: Non-tender, soft, non-distended Extremities: No gross deformities Neurologic: Normal mental status Psych: Normal Relevant ResultsReviewed Lab ResultsResults from last 7 days Lab Units 11/09/24 0611/08/24 0506 11/07/24 1538 WBC 10*3/uL 6.23 6.68 6.22 HEMOGLOBIN g/dL 10.5* 10.9* 10.3* HEMATOCRIT % 32.3* 33.5* 30.7* PLATELETS 10*3/uL 395* 405* 378 PLATELETS ESTIMATED Increased* -- -- Results from last 7 daysLab Units 11/09/24 0611/08/24 0506 11/07/24 1538 SODIUM mEq/L 139 138 140 POTASSIUM mEq/L 3.5 3.8 3.8 CHLORIDE mEq/L 105 106 106 CO2 mEq/L 20.0 20.6 21.5 BUN mg/dL 13 10 14 CREATININE mg/dL 0.84 0.75 0.75 GLUCOSE mg/dL 78 97 112* CALCIUM mg/dL 8.8 8.8 8.2* [id number] years old with PMH of HTN, CAD (s/p CABG), PAD (s/p BL LE stenting), alcohol use disorder, tobacco use, recent admission with right-sided CVA. Patient brought from rehab with right eye pain, seen by ophthalmology, found to have corneal ulcer, started on topical medications p.o. Valtrex. Patient also found to have complicated UTI, started on p.o. antibiotics, pending further workup. Assessment & Plan Corneal ulcer Ophthalmology following: Pending improvement & clearance Wound eye Cx (+) MRSA Plan: Optho following -evaluating daily Continue p.o. Bactrim to cover wound eye MRSA + UTI Complicated UTI (urinary tract infection) In male Plan: Continue p.o.'s Bactrim for 7 days total Follow urine culture Dementia with behavioral disturbance (HCC) Per patient's family number, he has dementia at baseline, has been acutely agitated in the hospital (likely UTI) likely delirium requiring 1: 1 sitter Plan: Has been intermittently requiring Zyprexa as needed(last dose 11/07) improving, will hold off on psych consult, I believe acute agitation was 2/2 new occult UTI found Try to avoid restraints History of CVA (cerebrovascular accident) Peripheral vascular disease (HCC) Continue home aspirin + Plavix + atorvastatin 40 Essential hypertensionContinue home amlodipine 5+ losartan 50 ETOH abusePatient has been in rehab prior to admission, no recent alcohol intake Gastroesophageal reflux diseaseContinue home PPI Medication management Patient cannot endorse/are not exactly sure of her home medication dosage and frequency. Pharmacy was consulted to confirm home medications. Hypopyon of right eye VTE prophylaxis: SCD/teds for now Disposition: Pending clinical improvement, ophthalmology clearance [facility] * Nathalie Alcaraz MD - 11/08/2024 2:36 PM CDT OPHTHALMOLOGY progress NOTE PATIENT NAME: Rosmery Blevins PATIENT : 1955 MR #: [id number] [address]: [address] DATE OF CONSULT: 11/08/2024 CONSULTING ATTENDING: Dr.Kheirkhah COLBERT CONSULTING RESIDENT: Nathalie Alcaraz MD REASON FOR CONSULT: R eye vision loss x4 days CHART REVIEWED: YES HISTORY OF PRESENT ILLNESS: Rosmery Blevins is a 69 y.o. male with a PMH of PMH of CAD s/p CABG, PAD, EtOH use, stroke, and unknown POH presenting from [facility] with vision loss from right eye for four days. Patient is AAOx0 on exam and cannot follow commands. Contacts were noted on exam and removed Interval events: mental status still altered,unable to answer questions. Not in any pain. MEDICATIONS: Current Facility-Administered Medications: acetaminophen (Tylenol) tablet 650 mg, 650 mg, Oral, q6h PRN, Chriss Flores MD, 650 mg at 11/08/24 0823 amLODIPine (Norvasc) tablet 5 mg, 5 mg, Oral, Daily, Chriss Flores MD, 5 mg at 11/08/24 0805 aspirin chewable tablet 81 mg, 81 mg, Oral, q AM, Chriss Flores MD, 81 mg at 11/08/24 0804 atorvastatin (Lipitor) tablet 40 mg, 40 mg, Oral, Daily, Chriss Flores MD, 40 mg at 11/08/24 0804 atropine 1 % ophthalmic solution 1 drop, 1 drop, Right Eye, BID, Alice Merino MD, 1 drop at 11/08/24 0956 calcium gluconate 1g in NaCl 50mL IVPB 1 g, 1 g, Intravenous, PRN, Chriss Flores MD [Held by provider] ciprofloxacin (Cipro) tablet 500 mg, 500 mg, Oral, q12h CAN, Peri Chilel MD, 500 mg at 11/08/24 0804 clopidogrel (Plavix) tablet 75 mg, 75 mg, Oral, Daily, Chriss Flores MD, 75 mg at 11/08/24 0804 dextrose 50 % solution 12.5 g, 12.5 g, Intravenous, PRN, Chriss Flores MD dextrose 50 % solution 25 g, 25 g, Intravenous, PRN, Chriss Flores MD dorzolamide-timolol (Cosopt) 2-0.5 % ophthalmic solution 1 drop, 1 drop, Both Eyes, BID, Krista Yu MD erythromycin (Romycin) 5 mg/g ophthalmic ointment 1 Application, 1 Application, Right Eye, 4x daily, Krista Yu MD, 1 Application at 11/08/24 1318 fluorescein 1 MG ophthalmic strip 2 strip, 2 strip, Both Eyes, Once, Luis Wood MD folic acid (Folvite) tablet 1 mg, 1 mg, Oral, Daily, Chriss Flores MD, 1 mg at 11/08/24 0809 glucagon injection 1 mg, 1 mg, Intramuscular, PRN, Chriss Flores MD lansoprazole (First - Lansoprazole) suspension 30 mg, 30 mg, Oral, Daily before breakfast, Chriss Flores MD, 30 mg at 11/08/24 0609 losartan (Cozaar) tablet 50 mg, 50 mg, Oral, Daily, Chriss Flores MD, 50 mg at 11/08/24 0805 magnesium oxide (Mag-Ox) tablet 800 mg, 800 mg, Oral, PRN, Chriss Flores MD magnesium sulfate in D5W IVPB 1 g, 1 g, Intravenous, PRN, Chriss Flores MD magnesium sulfate IVPB 2 g, 2 g, Intravenous, PRN, Chriss Flores MD magnesium sulfate IVPB 4 g, 4 g, Intravenous, PRN, Chriss Flores MD moxifloxacin (Vigamox) 0.5 % ophthalmic solution 1 drop, 1 drop, Right Eye, q2h, Krista Yu MD, 1 drop at 11/08/24 1420 naloxone (Narcan) injection 0.04 mg, 0.04 mg, Intravenous, PRN, Chriss Flores MD oxyCODONE (Roxicodone) solution 2.5 mg, 2.5 mg, Oral, q6h PRN, Chriss Flores MD, 2.5 mg at 11/08/24 0823 potassium & sodium phosphates (Phos-NaK) 280-160-250 MG packet 2 packet, 2 packet, Oral, PRN, Chriss Flores MD potassium chloride CR (Klor-Con M20) ER tablet 20 mEq, 20 mEq, Oral, PRN, Chriss Flores MD potassium chloride CR (Klor-Con M20) ER tablet 40 mEq, 40 mEq, Oral, PRN, Chriss Flores MD potassium chloride IVPB 10 mEq, 10 mEq, Intravenous, PRN, Chriss Flores MD Potassium chloride solution 20 mEq, 20 mEq, Nasogastric, PRN, Chriss Flores MD potassium phosphate 30 mmol/260 mL NS infusion (premix) 30 mmol, 30 mmol, Intravenous, PRN, Chriss Flores MD potassium phosphates 15 mmol in sodium chloride 0.9 % 100 mL infusion, 15 mmol, Intravenous, PRN, Chriss Flores MD proparacaine (Alcaine) 0.5 % ophthalmic solution 1 drop, 1 drop, Both Eyes, Once, Luis Wood MD QUEtiapine (SEROquel) tablet 25 mg, 25 mg, Oral, Nightly, Chriss Flores MD, 25 mg at 11/07/24 212 senna-docusate (Nimisha-Colace) 8.6-50 mg per tablet 2 tablet, 2 tablet, Oral, q12h, Chriss Flores MD, 2 tablet at 11/08/24 0559 sodium chloride (NS) 0.9 % flush 10 mL, 10 mL, Intravenous, q12h CAN, Chriss Flores MD, 10 mL at 11/08/24 0958 sodium chloride (NS) 0.9 % flush 10 mL, 10 mL, Intravenous, PRN, Chriss Flores MD sodium phosphates 15 mmol in sodium chloride 0.9 % 100 mL IVPB, 15 mmol, Intravenous, PRN, Chriss Flores MD sodium phosphates 30 mmol in sodium chloride 0.9 % 250 mL IVPB, 30 mmol, Intravenous, PRN, Chriss Flores MD sulfamethoxazole-trimethoprim (Bactrim DS) 800-160 MG per tablet 160 mg, 160 mg, Oral, q12h, Peri Chilel MD, 160 mg at 11/08/24 1418 tamsulosin (Flomax) 24 hr capsule 0.4 mg, 0.4 mg, Oral, Daily, Chriss Flores MD, 0.4 mg at 11/08/24 0804 thiamine (Vitamin B-1) tablet 100 mg, 100 mg, Oral, Daily, Chriss Flores MD, 100 mg at 11/08/24 1325 tobramycin 13.57 mg/mL ophthalmic solution, 1 drop, Right Eye, q2h, Krista Yu MD, 1 drop at 11/08/24 1418 valACYclovir (Valtrex) tablet 1,000 mg, 1,000 mg, Oral, TID, Luis Wood MD, 1,000 mg at 11/08/24 1318 vancomycin (Vancocin) 50 mg/mL ophthalmic solution 1 drop, 1 drop, Right Eye, q2h, Krista Yu MD, 1 drop at 11/08/24 1420 Last Recorded Vitals Blood pressure 117/67, pulse 65, temperature 36.9 ?C (98.4 ?F), resp. rate 18, height 1.854 m (6' 1"), weight 78.7 kg (173 lb 8 oz), SpO2 98%. Ophthalmologic Exam : Base Eye Exam Visual Acuity (Snellen - Linear) Right Left Near sc btl btl Tonometry (Tonopen, 2:35 PM) Right LeftPressure 25 21 Visual [place] Unable due to metal status Extraocular Movement Right LeftFull Full Neuro/Psych Mood/Affect: AAOxo Slit Lamp and Fundus Exam External Exam Right LeftExternal Normal Normal Slit Lamp Exam Right LeftLids/Lashes Normal Normal Conjunctiva/Sclera 1+ injection White and quiet Cornea Central circular epi-defect improving with resolved infiltrate Clear Anterior Chamber 40% layered hypopyon Deep and quiet Iris Round and reactive Round and reactive Lens 2+ NS Clear Vitreous Normal Normal Eye exam last edited by Nathalie Alcaraz MD on 11/08/2024 at 14:36 CDT IMAGING: No CT head results found for the past 14 days No MRI head results found for the past 14 days PROCEDURES PERFORMED:B-Scan Right eye (OD): no retinal masses, detachment, or tears seen, no signs of vitritis. Vitreous debris equal Left eye (OS): no retinal mass, detachment, or tears seen, no signs of vitritis, Vitreous debris equal DIAGNOSES/RECOMMENDATION:#Corneal Ulcer, Right Eye #Hypopyon, right eye - Corneal culture was obtained and sent for Gram stain, aerobic culture, anaerobic culture, fungal smear, fungal culture, HSV PCR, VZV PCR, and Acanthamoeba testing; prelim staph aureus - decrease fortified vancomycin and tobramycin q2h (11/06-) - decrease moxifloxacin q2h - Recommend erythromycin ophthalmic ointment QID to periocular region, Right eye - continue cyclopentolate 1% (or atropine 1% if unavailable) BID, Right eye - continue PO valtrex 1g TID (renal dosing adjustment per primary); ok to stop after final culture results - Eye drops ordered by ophthalmology, please keep drops on ice when not in use - continue abx per primary - Patient to be admitted to ensure proper ocular administration of drops as patient is AAOx0 #Ocular hypertension, right eye- on cospot BID, right eye Please page the ophthalmology on-call resident if any changes develop or if you have any questions or concerns. Thank you for the consult. SANCHEZ De La VegaGY-4 Ophthalmology [facility] Cosigned by Ann Barrett MD at 11/08/2024 5:45 PM CDT * Peri Chilel MD - 11/08/2024 1:21 PM CDT Subjective NAEO. Pt examined bedside,doing well Objective Last Recorded VitalsBlood pressure 117/67, pulse 65, temperature 36.9 ?C (98.4 ?F), resp. rate 18, height 1.854 m (6' 1"), weight 78.7 kg (173 lb 8 oz), SpO2 98%. Physical Exam:General: Agitated bedside, yelling and screaming Skin: No rashes, normal appearance for race Head: Normocephalic, atraumatic Eyes: Conjunctivae clear, EOMI bilaterally Neck: Normal ROM Lungs: Normal respiratory effort, no wheezing Abdomen: Non-tender, soft, non-distended Extremities: No gross deformities Neurologic: Mental status: Agitated Psych: Agitated Relevant ResultsReviewed Lab ResultsResults from last 7 days Lab Units 11/08/24 0506 11/07/24 1538 11/05/24 2313 WBC 10*3/uL 6.68 6.22 7.34 HEMOGLOBIN g/dL 10.9* 10.3* 9.9* HEMATOCRIT % 33.5* 30.7* 30.3* PLATELETS 10*3/uL 405* 378 428* Results from last 7 daysLab Units 11/08/24 0506 11/07/24 1538 11/06/24 1101 11/05/24 2313 SODIUM mEq/L 138 140 -- 134* POTASSIUM mEq/L 3.8 3.8 -- 4.0 CHLORIDE mEq/L 106 106 -- 105 CO2 mEq/L 20.6 21.5 -- 23.0 BUN mg/dL 10 14 -- 16 CREATININE mg/dL 0.75 0.75 -- 0.72 POC GLUCOSE -- -- < > -- GLUCOSE mg/dL 97 112* -- 93 CALCIUM mg/dL 8.8 8.2* -- 9.1 < > = values in this interval not displayed. [id number] years old with PMH of HTN, CAD (s/p CABG), PAD (s/p BL LE stenting), alcohol use disorder, tobacco use, recent admission with right-sided CVA. Patient brought from rehab with right eye pain, seen by ophthalmology, found to have corneal ulcer, started on topical medications p.o. Valtrex. Patient also found to have complicated UTI, started on p.o. antibiotics, pending further workup. Assessment & Plan Corneal ulcer Ophthalmology following: Pending improvement & clearance Wound eye Cx (+) MRSA Plan: Optho following - made aware Complicated UTI (urinary tract infection) In male Plan: Start PO Cipro 500 twice daily for 7 days Follow urine culture (I suspect something will grow given that urine was somewhat cloudy and concern for possible mucous) Dementia with behavioral disturbance (HCC) Per patient's family number, he has dementia at baseline, has been acutely agitated in the hospital (likely UTI) likely delirium requiring 1: 1 sitter Plan: Has been intermittently requiring Zyprexa as needed(last dose 11/07) improving, will hold off on psych consult, I believe acute agitation was 2/2 new occult UTI found Try to avoid restraints History of CVA (cerebrovascular accident) Peripheral vascular disease (HCC) Continue home aspirin + Plavix + atorvastatin 40 Essential hypertensionContinue home amlodipine 5+ losartan 50 ETOH abusePatient has been in rehab prior to admission, no recent alcohol intake Gastroesophageal reflux diseaseContinue home PPI Medication management Patient cannot endorse/are not exactly sure of her home medication dosage and frequency. Pharmacy was consulted to confirm home medications. Hypopyon of right eye VTE prophylaxis: SCD/teds for now Disposition: Pending clinical improvement, ophthalmology clearance [facility] * Mary Haney RN - 11/08/2024 11:45 AM CDT CASE MANAGEMENT ROUTINE DISCHARGE PLAN NOTE LOS: 1 Barriers to Discharge: Pending urine cxs. Considering psych consult. Ophthalmology following, topical med. On Cipro. 1:1 sitter, consider psych consult. DISCHARGE PLAN A: Home/HH with family. DISCHARGE PLAN B: Home. WENDY: >2-3 Days. Mary Haney RN, BSN-CM Finger Grip Machine Operator Medicine Service PH: * Krista Yu MD - 11/07/2024 1:03 PM CDT OPHTHALMOLOGY CONSULT NOTE PATIENT NAME: Rosmery Blevins PATIENT : 1955 MR #: [id number] ROOM: [place] [address] DATE OF CONSULT: 11/07/2024 CONSULTING ATTENDING: Dr.Kheirkhah CLOBERT CONSULTING RESIDENT: Krista Yu MD REASON FOR CONSULT: R eye vision loss x4 days CHART REVIEWED: YES HISTORY OF PRESENT ILLNESS: Rosmery Blevins is a 69 y.o. male with a PMH of PMH of CAD s/p CABG, PAD, EtOH use, stroke, and unknown POH presenting from [facility] with vision loss from right eye for four days. Patient is AAOx0 on exam and cannot follow commands. Contacts were noted on exam and removed Interval events: mental status still altered, only small epi defect present, pictures in media REVIEW OF SYSTEMS: CONSTITUTIONAL: No fever, weight changes. MUSCULOSKELETAL: No generalized pain. SKIN: No rash. EYES: As above. ENT: No rhinorrhea, hearing changes, oral lesions. RESPIRATORY: No SOB. CARDIOVASCULAR: No chest pain. GASTROINTESTINAL: No nausea, vomiting, diarrhea. HEMATOPOETIC/LYMPHATIC: No bruising, LAD. GENITOURINARY: No change in UOP. NEUROLOGICAL: No headache. PSYCHIATRIC: No behavioral change. ALLERGY/IMMUNE SYSTEM: No allergies. PAST OCULAR HISTORY: Please see HPI PAST MEDICAL HISTORY: He has no past medical history on file. PAST SURGICAL HISTORY: He has no past surgical history on file. SOCIAL HISTORY: HeAlcohol use questions deferred to the physician. No history on file for tobacco use and drug use. FAMILY HISTORY: No family history on file. ALLERGIES: Patient has no known allergies. MEDICATIONS: Current Facility-Administered Medications: acetaminophen (Tylenol) tablet 650 mg, 650 mg, Oral, q6h PRN, Chriss Flores MD, 650 mg at 11/07/24 1211 amLODIPine (Norvasc) tablet 5 mg, 5 mg, Oral, Daily, Chriss Flores MD, 5 mg at 11/06/24 0910 aspirin chewable tablet 81 mg, 81 mg, Oral, q AM, Chriss Flores MD, 81 mg at 11/06/24 0639 atorvastatin (Lipitor) tablet 40 mg, 40 mg, Oral, Daily, Chriss Flores MD, 40 mg at 11/06/24 0909 atropine 1 % ophthalmic solution 1 drop, 1 drop, Right Eye, BID, Alice Merino MD, 1 drop at 11/06/24 1801 calcium gluconate 1g in NaCl 50mL IVPB 1 g, 1 g, Intravenous, PRN, Chriss Flores MD ciprofloxacin (Cipro) tablet 500 mg, 500 mg, Oral, q12h CAN, Peri Chilel MD clopidogrel (Plavix) tablet 75 mg, 75 mg, Oral, Daily, Chriss Flores MD, 75 mg at 11/06/24 0909 dextrose 50 % solution 12.5 g, 12.5 g, Intravenous, PRN, Chriss Flores MD dextrose 50 % solution 25 g, 25 g, Intravenous, PRN, Chriss Flores MD erythromycin (Romycin) 5 mg/g ophthalmic ointment 1 Application, 1 Application, Right Eye, 4x daily, Alice Merino MD, 1 Application at 11/06/24 1800 fluorescein 1 MG ophthalmic strip 2 strip, 2 strip, Both Eyes, Once, Luis Wood MD folic acid (Folvite) tablet 1 mg, 1 mg, Oral, Daily, Chriss Flores MD, 1 mg at 11/06/24 0909 glucagon injection 1 mg, 1 mg, Intramuscular, PRN, Chriss Flores MD lansoprazole (First - Lansoprazole) suspension 30 mg, 30 mg, Oral, Daily before breakfast, Chriss Flores MD, 30 mg at 11/06/24 0639 losartan (Cozaar) tablet 50 mg, 50 mg, Oral, Daily, Chriss Flores MD, 50 mg at 11/06/24 0909 magnesium oxide (Mag-Ox) tablet 800 mg, 800 mg, Oral, PRN, Chriss Flores MD magnesium sulfate in D5W IVPB 1 g, 1 g, Intravenous, PRN, Chriss Flores MD magnesium sulfate IVPB 2 g, 2 g, Intravenous, PRN, Chriss Flores MD magnesium sulfate IVPB 4 g, 4 g, Intravenous, PRN, Chriss Flores MD moxifloxacin (Vigamox) 0.5 % ophthalmic solution 1 drop, 1 drop, Right Eye, q1h, Alice Merino MD, 1 drop at 11/07/24 1200 naloxone (Narcan) injection 0.04 mg, 0.04 mg, Intravenous, PRN, Chriss Flores MD oxyCODONE (Roxicodone) solution 2.5 mg, 2.5 mg, Oral, q6h PRN, Chriss Flores MD, 2.5 mg at 11/07/24 1206 potassium & sodium phosphates (Phos-NaK) 280-160-250 MG packet 2 packet, 2 packet, Oral, PRN, Chriss Flores MD potassium chloride CR (Klor-Con M20) ER tablet 20 mEq, 20 mEq, Oral, PRN, Chriss Flores MD potassium chloride CR (Klor-Con M20) ER tablet 40 mEq, 40 mEq, Oral, PRN, Chriss Flores MD potassium chloride IVPB 10 mEq, 10 mEq, Intravenous, PRN, Chriss Flores MD Potassium chloride solution 20 mEq, 20 mEq, Nasogastric, PRN, Chriss Flores MD potassium phosphate 30 mmol/260 mL NS infusion (premix) 30 mmol, 30 mmol, Intravenous, PRN, Chriss Flores MD potassium phosphates 15 mmol in sodium chloride 0.9 % 100 mL infusion, 15 mmol, Intravenous, PRN, Chriss Flores MD proparacaine (Alcaine) 0.5 % ophthalmic solution 1 drop, 1 drop, Both Eyes, Once, Luis Wood MD QUEtiapine (SEROquel) tablet 25 mg, 25 mg, Oral, Nightly, Chriss Flores MD, 25 mg at 11/06/24 2142 senna-docusate (Nimisha-Colace) 8.6-50 mg per tablet 2 tablet, 2 tablet, Oral, q12h, Chriss Flores MD, 2 tablet at 11/06/24 0639 sodium chloride (NS) 0.9 % flush 10 mL, 10 mL, Intravenous, q12h CAN, Chriss Flores MD, 10 mL at 11/06/24 0822 sodium chloride (NS) 0.9 % flush 10 mL, 10 mL, Intravenous, PRN, Chirss Flores MD sodium phosphates 15 mmol in sodium chloride 0.9 % 100 mL IVPB, 15 mmol, Intravenous, PRN, Chriss Flores MD sodium phosphates 30 mmol in sodium chloride 0.9 % 250 mL IVPB, 30 mmol, Intravenous, PRN, Chriss Flores MD tamsulosin (Flomax) 24 hr capsule 0.4 mg, 0.4 mg, Oral, Daily, Chriss Flores MD, 0.4 mg at 11/06/24 0909 thiamine (Vitamin B-1) tablet 100 mg, 100 mg, Oral, Daily, Chriss Flores MD, 100 mg at 11/06/24 0915 valACYclovir (Valtrex) tablet 1,000 mg, 1,000 mg, Oral, TID, Luis Wood MD, 1,000 mg at 11/07/24 1211 vancomycin (Vancocin) 50 mg/mL ophthalmic solution 1 drop, 1 drop, Right Eye, q1h, Alice Merino MD, 1 drop at 11/07/24 1211 Last Recorded Vitals Blood pressure 111/68, pulse 71, temperature 36.7 ?C (98.1 ?F), resp. rate 16, height 1.854 m (6' 1"), weight 78.7 kg (173 lb 8 oz), SpO2 99%. Ophthalmologic Exam : Base Eye Exam Visual Acuity (Snellen - Linear) Right Left Dist sc BTL BTL Tonometry (Tonopen, 12:39 AM) Right LeftPressure 22 10 Pupils Dark Light Shape React APDRight 3 2 Round Brisk None Left 3 3 Round Minimal None Visual FieldsUnable secondary to mentation Extraocular MovementGrossly full but unable to follow commands Neuro/Psych Mood/Affect: AAOxo Dilation Both eyes: 2.5% Phenylephrine @ 12:40 AM Slit Lamp and Fundus Exam External Exam Right LeftExternal Normal Normal Slit Lamp Exam Right LeftLids/Lashes Normal Normal Conjunctiva/Sclera 2+ injection White and quiet Cornea Central circular epi-defect with infiltrate, hazy view Clear Anterior Chamber 40% layered hypopyon Deep and quiet Iris Round and reactive but limited view secondary to surface Round and reactive Lens 2+ NS Clear Anterior Vitreous Normal Normal Fundus Exam Right LeftDisc no view Normal C/D Ratio 0.3 Macula no view Normal Vessels no view Normal Periphery no view Normal Exam limited by patient cooperation and mentation Eye exam last edited by Alice Merino MD on 11/06/2024 at 06:19 CDT IMAGING: No CT head results found for the past 14 days No MRI head results found for the past 14 days PROCEDURES PERFORMED:B-Scan Right eye (OD): no retinal masses, detachment, or tears seen, no signs of vitritis. Vitreous debris equal Left eye (OS): no retinal mass, detachment, or tears seen, no signs of vitritis, Vitreous debris equal DIAGNOSES/RECOMMENDATION:#Corneal Ulcer, Right Eye #Hypopyon, right eye - Corneal culture was obtained and sent for Gram stain, aerobic culture, anaerobic culture, fungal smear, fungal culture, HSV PCR, VZV PCR, and Acanthamoeba testing - Recommend fortified vancomycin 25 mg/mL 1 drop, every hour, Right eye - Recommend fortified tobramycin 13.6 mg/mL 1 drop, every hour, Right eye - Recommend moxifloxacin 1 drop, every hour, Right eye - Recommend erythromycin ophthalmic ointment QID to periocular region, Right eye - Recommend cyclopentolate 1% (or atropine 1% if unavailable) BID, Right eye - Recommend PO valtrex 1g TID (renal dosing adjustment per primary) - Eye drops ordered by ophthalmology, please keep drops on ice when not in use - Recommend hong konger eye mask or taping eyelid closed to prevent exposure - Avoid contact usage - Patient to be admitted to ensure proper ocular administration of drops as patient is AAOx0 #Ocular hypertension, right eye- Recommend starting cospot BID, right eye Please page the ophthalmology on-call resident if any changes develop or if you have any questions or concerns. Thank you for the consult. Krista Yu [facility]DCape [facility] | [facility] PGY2 | Ophthalmology Cosigned by Ann Barrett MD at 11/07/2024 3:15 PM CDT * Peri Chilel MD - 11/07/2024 12:43 PM CDT Subjective NAEO. Pt examined bedside, patient very agitated, yelling and screaming, after my physical exam no signs of pain anywhere, I believe patient is in pain from left index finger nail has come off and seems very painful the patient Objective Last Recorded VitalsBlood pressure 111/68, pulse 71, temperature 36.7 ?C (98.1 ?F), resp. rate 16, height 1.854 m (6' 1"), weight 78.7 kg (173 lb 8 oz), SpO2 99%. Physical Exam:General: Agitated bedside, yelling and screaming Skin: No rashes, normal appearance for race Head: Normocephalic, atraumatic Eyes: Conjunctivae clear, EOMI bilaterally Neck: Normal ROM Lungs: Normal respiratory effort, no wheezing Abdomen: Non-tender, soft, non-distended Extremities: No gross deformities Neurologic: Mental status: Agitated Psych: Agitated Relevant ResultsReviewed Lab ResultsResults from last 7 days Lab Units 11/05/24 2313 WBC 10*3/uL 7.34 HEMOGLOBIN g/dL 9.9* HEMATOCRIT % 30.3* PLATELETS 10*3/uL 428* Results from last 7 daysLab Units 11/06/24 1101 11/05/24 2313 SODIUM mEq/L -- 134* POTASSIUM mEq/L -- 4.0 CHLORIDE mEq/L -- 105 CO2 mEq/L -- 23.0 BUN mg/dL -- 16 CREATININE mg/dL -- 0.72 POC GLUCOSE mg/dL 100* -- GLUCOSE mg/dL -- 93 CALCIUM mg/dL -- 9.1 [id number] years old with PMH of HTN, CAD (s/p CABG), PAD (s/p BL LE stenting), alcohol use disorder, tobacco use, recent admission with right-sided CVA. Patient brought from rehab with right eye pain, seen by ophthalmology, found to have corneal ulcer, started on topical medications p.o. Valtrex. Patient also found to have complicated UTI, started on p.o. antibiotics, pending further workup. Assessment & Plan Corneal ulcer Ophthalmology following: Pending improvement & clearance Complicated UTI (urinary tract infection) In male Plan: Start PO Cipro 500 twice daily for 7 days Follow urine culture (I suspect something will grow given that urine was somewhat cloudy and concern for possible mucous) Dementia with behavioral disturbance (HCC) Per patient's family number, he has dementia at baseline, has been acutely agitated in the hospital (likely UTI) likely delirium requiring 1: 1 sitter Plan: Has been intermittently requiring Zyprexa as needed Will consider psych consult Try to avoid restraints History of CVA (cerebrovascular accident) Peripheral vascular disease (HCC) Continue home aspirin + Plavix + atorvastatin 40 Essential hypertensionContinue home amlodipine 5+ losartan 50 ETOH abusePatient has been in rehab prior to admission, no recent alcohol intake Gastroesophageal reflux diseaseContinue home PPI Medication management Patient cannot endorse/are not exactly sure of her home medication dosage and frequency. Pharmacy was consulted to confirm home medications. Hypopyon of right eye VTE prophylaxis: SCD/teds for now Disposition: Pending clinical improvement, ophthalmology clearance & urine culture [facility] CDT * Luis E Alexander - 11/06/2024 2:42 PM CDT SW asked whether patient will have adequate help at home after discharge: family is willing and has capacity to assist and care for patient; able to assist with f/u appointments if needed, including transportation. Patient's/Family's response: 1. Yes Marital Status: not MPOA: Advance Care Planning Documents Document Type Status Effective Date Expiration Date Received On Description Advance Directives and Living Will Not Received Power of Java Technical Architect Not Received Emergency Contact Listed: Patient; If unable to, Extended Emergency Contact Information Primary Emergency Contact: CHANDA BLEVINS Mobile Relation: Child Preferred language: Danish Physician Assistant Surgery needed? No Secondary Emergency Contact: Kristan Blevins Mobile Relation: Son Lives with: his son Pre-hospital function: dependant Services: 1. Yes Home Health: 1. Yes DME use at home: bedside commode, walker, wheelchair, and other hospital bed PCP/Contact Information: PCP - unknown Pharmacy: tbd Home/Address: verified in [employer] Health Insurance/Payer: Payor: [employer] MEDICARE / Plan: [employer] / Product Type: Medicare / Who is available to provide care if needed?/Caregiver: son 31/10 care/supervision at home if needed: 1. Yes Transportation arrangements: Family/friends drive to appointments/errands HD: 0. No SW will continue to follow and assist with care transition needs. 11/06/24 1400Readmission Questions Is this hospital visit a Readmission? No Discharge Planning Information Source Family Permanent Residence Private residence Permanent Residence Type Single story home Household Members Children Support Systems Children Arrived From Inpatient Rehab Facility In the last 12 months, was there a time when you were not able to pay the mortgage or rent on time? N In the past 12 months, how many times have you moved where you were living? 0 At any time in the past 12 months, were you homeless or living in a senior care (including now)? N In the past 12 months has the electric, gas, oil, or water company threatened to shut off services in your home? No Within the past 12 months, you worried that your food would run out before you got the money to buy more. Never true Within the past 12 months, the food you bought just didn't last and you didn't have money to get more. Never true Assistive Devices Hospital Bed;Walker;Wheelchair;Commode Current In-Home DME Supplier Name [employer] Current In-Home DME Supplier Contact unknown Current Services Home Health;Caregiver Home Health Agency Name unknown Caregiver Agency Name [facility] Assistance Needed Pt requires assistance with ADL's; pt does not drive Patient expects to be discharged to: Home Expected Discharge Disposition Home Caregiver assessment needed? Yes Patient will have adequate help at home after discharge Yes Caregiver is willing and has capacity to assist and care for patient Yes Caregiver is able to assist with follow up appointments and transportation Yes Caregiver Name and Contact Information [facility] and pt son Chanda Blevins [phone] Anticipated Services at Discharge In home services Type of Home Care Services Home PT;Home OT;Home nursing visits In the past 12 months, has lack of transportation kept you from medical appointments or from getting medications? no In the past 12 months, has lack of transportation kept you from meetings, work, or from getting things needed for daily living? No Does the patient need discharge transport arranged? Yes Has discharge transport been arranged? No Anticipated Transportation Needed TBD Discharge Planning Comments SW spoke with CHANDA BLEVINS (Child) [phone]. Pt presented after 3 weeks of being inpatient at [facility]. Per son, pt has good days and bad - confusion, irritability. Pt lives with Chanda in [facility]; no steps. Pt requires assistance with ADL's' pt does not drive. Pt has DME being delivered today - hospital bed, wheelchair, walker, commode. Per son, HH services were to be initiated after [facility] - unknown agency. Caregiver services to be initiated through [facility] once pt d/c. Pt has MPOA son Chanda Blevins; no paperwork present - SW requested son provide copy. Chanda reported he will not be able to assist with transportation home. Plan A: Home w/ HH Plan B: Home. SW will continue to assist as needed Discharge Planning Status Initial Assessment Complete Luis E Alexander, [phone] * Peri Chilel MD - 11/06/2024 12:12 PM CDT Brief hospitalist note 69 years old with PMH of HTN, CAD (s/p CABG), PAD (s/p BL LE stenting), alcohol use disorder, tobacco use, recent admission with right-sided CVA. Patient brought from rehab with right eye pain, seen by ophthalmology, found to have corneal ulcer, started on topical medications p.o. Valtrex. I examined patient bedside, patient very agitated, screaming and yelling, per nursing staff has also been trying to jump out of bed. One-to-one sitter ordered, olanzapine X1 ordered Plan: Ophthalmology following pending reeval today 1: 1 sitter Plan will be patient to go back to inpatient rehab Will consider psych consult Peri Chilel MD [facility]bjryoo4203-28-01 15:51:52Pending Results Scheduled Orders Name Type Priority Associated Diagnoses Order Schedule Gram Stain Microbiology STAT Once (Lab) f or 1 Occurrences starting 11/06/2024 until 11/06/2024 Culture: Acanthamoeba and Naegleria Lab STAT Once (Lab) for 1 Occurrences starting 11/06/2024 until 11/06/2024 POCT Glucose Point of Care Testing - Docked Device Routine Every 15 minutes as needed until discontinued starting 11/06/2024 Scheduled Referrals Name Type Priority Associated Diagnoses Order Schedule Ambulatory referral to Home Health Outpatient Referral Routine History of CVA (cerebrovascular accident) Expected: 11/14/2024 (Approximate), Expires: 11/14/2025 Health Maintenance Due Date Last Done Comments CT Colonography 1957 Colonoscopy 1957 Colorectal Cancer Screening 1957 FIT-DNA 1957 FIT 1957 FOBT 1957 Medicare Annual Wellness (AWV) 1957 Sigmoidoscopy 1957 DTaP/Tdap/Td Vaccines (1 - Tdap) 1976 Pneumococcal Vaccine: 50+ Ye ars (1 of 2 - PCV) 1976 Zoster Vaccines (1 of 2) 2007 Respiratory Syncytial Virus (RSV) Adult Series (1 - Risk 60-74 years 1-dose series) 2017 Influenza Vaccine (#1) 2024 Lipid Panel 08/30/2029 08/30/2024 HIB Vaccines Aged Out No longer eligi ble based on patient's age to complete this topic HPV Vaccines Aged Out No longer eligi ble based on patient's age to complete this topic Hepatitis A Vaccines Aged Out No long er eligible based on patient's age to complete this topic Hepatitis B Vaccines Aged Out No long er eligible based on patient's age to complete this topic IPV Vaccines Aged Out No longer eligi ble based on patient's age to complete this topic Meningococcal Vaccine Aged Out No jb geoffrey eligible based on patient's age to complete this topic Rotavirus Vaccines Aged Out No longer eligible based on patient's age to complete this topic [id number] 15:51:52 Diagnosis Corneal ulcer - Primary Unspecified corneal ulcer 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 History of CVA (cerebrovascular accident) Transient ischemic attack (TIA), and cerebral infarction without residual deficits History of CVA (cerebrovascular accident) Transient ischemic attack (TIA), and cerebral infarction without residual deficits Essential hypertension Unspecified essential hypertension ETOH abuse Nondependent alcohol abuse, unspecified drinking behavior Gastroesophageal reflux disease Esophageal reflux Peripheral vascular disease (HCC) Unspecified peripheral vascular disease Medication management Hypopyon of right eye Dementia with behavioral dis turbance (HCC) UTI (urinary tract infection) Urinary tract infection, site not specified Complicated UTI (urinary tra ct infection) Toxic metabolic encephalopat hy 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 Barriers to progression include existing diagnosis. Recommendations to address these barriers include continue plan of care. Tamra Friedman [id number] 00:44:45 Notified by RN patient very agitated this evening, hold his genitals, screaming and attempting to get out of bed. Discussed with Dr. Platt and andrea ordered. Patient seen at bedside. Patient was upset that he had no adult brief on and had a BM. He then sat up, licked his stool, and slide himself down the side of the bed. At time of eval he has limited speech 2/2 aphasia which is baseline. He does deny pain but became agitated again showing his genitals. Will provide adult brief and bladder scan to rule out other causes of agitation. Tylenol given by RN for pain. [facility]iologyChrist[facility] [id number] 00:20:00 Patient seen on the floor with sitter at bedside. Jennifer JONES and supervisors Yasmine and Vincent informed. PA seen patient at bedside. Vital signs and assessment done. Medication give as prescribed. Patient requesting diaper, education given. Diaper in place, PA aware - see orders. NursingChrist[facility] [id number] 19:57:12 The patient is Moderately Stable - Low risk of patient condition declining or worsening The patient's goals for the shift include blayne The clinical goals for the shift include antibiotics, safety and comfort Over the shift, the patient did not make progress toward the following goals. Barriers to progression include existing diagnosis. Recommendations to address these barriers include follow treatment plan. T [facility] [id number] 14:10:46 The patient is Moderately Stable - Low risk of patient condition declining or worsening The patient's goals for the shift include Safety The clinical goals for the shift include Antibiotics Over the shift, the patient did not make progress toward the following goals. Barriers to progression include altered mental status. Recommendations to address these barriers include continue treatment plan. T Sahara Garcia [facility]2025-08-05 18:22:58 The patient is Moderately Stable - Low risk of patient condition declining or worsening The patient's goals for the shift include pain control The clinical goals for the shift include safety, antibiotics Internal MedicineChrist[facility] [id number] 22:12:22 2030: Patient is yelling and screaming of pain but unable to specify where and what kind of pain. Patient is pulling/guarding penis and yelling. When assessing skin to find source of pain, patient shown signs or discomfort when cleaning rectum. Patient began digging in rectum and eating feces. Patient redirected and cleaned. ROBERT Dunaway contacted. 0: Patient began yelling again. Hallucinating of someone in his room. Patient pulling on penis, despite frequent reorientation from sitter. Patient began having a BM and eating feces. ROBERT Dunaway contacted on patient's increase agitation and hallucinations. Diaper placed to avoid trauma to penis and contamination from feces to infected eye. Sacrum assessed prior to diaper placement. Skin is intact. Diaper education not possible on this patient. T NursingChrist[facility] SouthTuqgnfs0401-15-62 12:46:03 Problem: Pain - Adult Goal: Verbalizes/displays adequate comfort level or baseline comfort level Outcome: Progressing Problem: Safety - Adult Goal: Free from fall injury Outcome: Progressing The patient is Moderately Stable - Low risk of patient condition declining or worsening The patient's goals for the shift include safety, pain control The clinical goals for the shift include safety, pain control [place] 077535-08-04 00:45:10 The patient is Moderately Stable - Low risk of patient condition declining or worsening The patient's goals for the shift include safety, pain control The clinical goals for the shift include safety, pain control Over the shift, the patient did not make progress toward the following goals. Barriers to progression include fall risk. Recommendations to address these barriers include continue 1:1 sitter, continue plan of care [place] 077535-08-03 18:36:16 The patient is Moderately Stable - Low risk of patient condition declining or worsening The patient's goals for the shift include BLAYNE The clinical goals for the shift include clinical management [place] [id number] 03:13:05 The patient is Moderately Stable - Low risk of patient condition declining or worsening The patient's goals for the shift include BLAYNE The clinical goals for the shift include clinical management Over the shift, the patient did not make progress toward the following goals. Barriers to progression include- pt did sleep soundly well. [facility]2025-08-02 23:50:23 The patient is Moderately Stable - Low risk of patient condition declining or worsening The patient's goals for the shift include BLAYNE The clinical goals for the shift include Clinical Improvement Over the shift, the patient did not make progress toward the following goals. Barriers to progression include-as usual, pt has incomprehensible speech and rested well. [facility]2025-08-02 12:12:17 The patient is Moderately Stable - Low risk of patient condition declining or worsening The patient's goals for the shift include BLAYNE The clinical goals for the shift include Clinical Improvement Over the shift, the patient did not make progress toward the following goals. Barriers to progression include existing diagnosis. Recommendations to address these barriers include continue plan of care. [facility]2025-08-02 04:50:27 The patient is Moderately Stable - Low risk of patient condition declining or worsening The patient's goals for the shift include BLAYNE The clinical goals for the shift include comfort and safety Over the shift, the patient did not make progress toward the following goals. Barriers to progression include pt did sleep well. [facility]2025-08-01 23:58:42 The patient is Moderately Stable - Low risk of patient condition declining or worsening The patient's goals for the shift include BLAYNE The clinical goals for the shift include Clinical Improvement Over the shift, the patient did not make progress toward the following goals. Barriers to progression include-pt was received to have been confused with incomprehensible speech. [facility]2025-08-01 12:13:50 Final Recommendation(s): Secondary Review Review Type: Initial Initial Recommendation: Inpatient Review Outcome: Inpatient appropriate Secondary Review Status: Physician advisor review complete Rationale for Recommendation(s): Corneal ulceration concerning for infection requiring eye drops q1 hr complicated by agitation from dementia. IP [facility] Internal Medicine [facility]ician[facility] [id number] 10:32:02 The patient is Moderately Stable - Low risk of patient condition declining or worsening The patient's goals for the shift include BLAYNE The clinical goals for the shift include Clinical Improvement Over the shift, the patient did not make progress toward the following goals. Barriers to progression include needing eye drops. Recommendations to address these barriers include continue plan of care. [facility]2025-08-01 03:31:49 The patient is Moderately Stable - Low risk of patient condition declining or worsening The patient's goals for the shift include safety The clinical goals for the shift include clinical improvement Over the shift, the patient did make progress toward the following goals. Barriers to progression include. Recommendations to address these barriers include. [facility]2025-07-31 21:49:40 The patient is Moderately Stable - Low risk of patient condition declining or worsening The patient's goals for the shift include BLAYNE The clinical goals for the shift include safety Over the shift, the patient did make progress toward the following goals. Barriers to progression include. Recommendations to address these barriers include. [facility]2025-07-31 11:50:54 The patient is Moderately Stable - Low risk of patient condition declining or worsening The patient's goals for the shift include pain control and clinical improvement. The clinical goals for this shift include pain management and patient safety. Over the shift, the patient did make progress toward the following goals. Recommendations to address these goals include assessing patient's pain, implementing fall precautions, and addressing patients needs. [facility]2025-07-31 08:00:00 Patient very agitated this AM, cursing at staff and throwing urinal. Patient then threw bedside table over. Security was called and notified to get a prn med for agitation. IM Zyprexa given to patient with security at bedside. Will continue to monitor patients condition. Emergency Medicine Registered NurseChristus Spohn Hospital [facility] – [id number] 00:04:42 The patient is Moderately Stable - Low risk of patient condition declining or worsening The patient's goals for the shift include blayne The clinical goals for the shift include patient safety Over the shift, the patient did not make progress toward the following goals. Barriers to progression include patient confusion/lack of cooperation/chronic cognitive conditions. Recommendations to address these barriers include implement comfort and safety precautions as appropriate. [facility]2025-07-30 11:16:16 Pain - Adult Add All Verbalizes/displays adequate comfort level or baseline comfort level Add Today at 1116 - Ongoing by Audrey Dowling RN Add Safety - Adult Add All Free from fall injury Add Today at 1116 - Ongoing by Audrey Dowling RN T [facility]2025-07-30 05:36:37 The patient is Moderately Stable - Low risk of patient condition declining or worsening The patient's goals for the shift include unable to assess The clinical goals for the shift include safety, pain control Over the shift, the patient did not make progress toward the following goals. Barriers to progression include mental status. Recommendations to address these barriers include frequent reorientation, instructed to verbalized needs, bed alarm on. T [facility] SouthQwgvajg0721-07-16 05:25:05 Patient came in from ED. Awake and alert. On room air, not in acute respiratory distress. [facility] Pfllfls2239-19-26 21:46:00 HPI: Rosmery Blevins is a 69 y.o. male with history of anxiety, BPH, CVA, GERD, HTN, HLD, PVD, aphasia, dysphagia, CABG, stent presenting from [facility] for right eye pain. Unable to obtain history from patient due to aphasia. Patient History Surgical History: Recent Surgeries in Emergency Medicine No cases to display Medications: No current outpatient medications Allergies: No Known Allergies Family History: family history is not on file. Social History: Social Drivers of Health Tobacco Use: Not on file Alcohol Use: Patient Unable To Answer (08/31/2024) Received from [facility] [employer] A[employer] Q1: How often do you have a drink containing alcohol?: Patient unable to answer Q2: How many drinks containing alcohol do you have on a typical day when you are drinking?: Patient unable to answer Q3: How often do you have six or more drinks on one occasion?: Patient unable to answer Financial Resource Strain: Not on file Food Insecurity: No Food Insecurity (08/31/2024) Received from [facility] [employer] - Food Insecurity Worried About Running Out of Food in the Last Year: No Ran Out of Food in the Last Year: No Transportation Needs: No Transportation Needs (08/31/2024) Received from [facility] [employer] - Transportation Lack of Transportation: No Physical Activity: Not on file Stress: Not on file Social Connections: Not on file Intimate Partner Violence: Not on file Depression: Not on file Housing Stability: Not At Risk (08/31/2024) Received from [facility] [employer] - Housing/Utilities Has Housing: Yes Worried About Losing Housing: No Unable to Get Utilities: No Utilities: Not At Risk (08/31/2024) Received from [facility] [employer] - Utilities Unable to Get Utilities: No Health Literacy: Not on file Exam Physical Exam: Constitutional: General: He is not in acute distress. Appearance: He is not ill-appearing, toxic-appearing or diaphoretic. HENT: Right Ear: External ear normal. Left Ear: External ear normal. Nose: Nose normal. Mouth/Throat: Mouth: Mucous membranes are moist. Pharynx: Oropharynx is clear. Eyes: Comments: Eye exam with right eye corneal ulcer Unable to obtain visual acuity as patient cannot cooperate with exam Focal fluorescein uptake in right eye concerning for corneal ulcer Intraocular pressures 13 and left eye 33 on right eye Extraocular muscles intact. Cardiovascular: Rate and Rhythm: Normal rate. Pulses: Normal pulses. Pulmonary: Effort: Pulmonary effort is normal. Abdominal: General: Abdomen is flat. There is no distension. Tenderness: There is no guarding. Musculoskeletal: General: Normal range of motion. Cervical back: Normal range of motion. Skin: General: Skin is warm and dry. Capillary Refill: Capillary refill takes less than 2 seconds. Neurological: Mental Status: He is alert. Mental status is at baseline. ED Medications: Current Facility-Administered Medications: atropine 1 % ophthalmic solution 1 drop, 1 drop, Right Eye, BID, Alice Merino MD erythromycin (Romycin) 5 mg/g ophthalmic ointment 1 Application, 1 Application, Right Eye, 4x daily, Alice Merino MD fluorescein 1 MG ophthalmic strip 2 strip, 2 strip, Both Eyes, Once, Luis Wood MD moxifloxacin (Vigamox) 0.5 % ophthalmic solution 1 drop, 1 drop, Right Eye, q1h, Alice Merino MD proparacaine (Alcaine) 0.5 % ophthalmic solution 1 drop, 1 drop, Both Eyes, Once, Luis Wood MD tobramycin 13.57 mg/mL ophthalmic solution, 1 drop, Right Eye, q1h, Alice Merino MD valACYclovir (Valtrex) tablet 1,000 mg, 1,000 mg, Oral, TID, Luis Wood MD vancomycin (Vancocin) 50 mg/mL ophthalmic solution 1 drop, 1 drop, Right Eye, q1h, Alice Merino MD No current outpatient medications on file. Labs: Labs Reviewed BASIC METABOLIC PANEL - Abnormal Result Value Glucose Lvl 93 BUN 16 Creatinine Lvl 0.72 Sodium Lvl 134 (*) Potassium Lvl 4.0 Chloride Lvl 105 CO2 Lvl 23.0 Anion Gap 10.0 Calcium Lvl 9.1 eGFR 100 COMPLETE BLOOD COUNT - Abnormal WBC 7.34 RBC 3.32 (*) NRBC % 0.0 Hgb 9.9 (*) Hct 30.3 (*) MCV 91.3 MCH 29.8 MCHC 32.7 RDW - SD 41.8 (*) Plt Count 428 (*) MPV 9.4 AUTOMATED DIFFERENTIAL - Normal Segs % 58.8 Lymphs % 28.3 Monos % 8.4 Eos % 3.5 Basos % 0.7 Immature Grans % 0.3 Segs # 4.31 Lymphs # 2.08 Monos # 0.62 Eos # 0.26 Basos # 0.05 Imm Grans # 0.02 WOUND CULTURE W/GRAM STAIN, NON-SURGICAL Gram Stain Rare WBCs seen Gram Stain Rare Gram positive cocci in pairs ANAEROBIC CULTURE GRAM STAIN FUNGAL CULTURE W/SMEAR COMPLETE BLOOD COUNT W/DIFF AND PLATELET Narrative: The following orders were created for panel order Complete Blood Count w/Diff and Platelet. Procedure Abnormality Status --------- ------ Complete Blood Count[[id number]] Abnormal Final result Automated Differential[[id number]] Normal Final result Please view results for these tests on the individual orders. 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 Vital Signs: Vitals: 11/05/24 2152 11/06/24 0205 11/06/24 0206 11/06/24 0207 BP: 118/78 (!) 93/57 Pulse: 78 69 Resp: 16 18 Temp: 37.1 ?C (98.8 ?F) 37.9 ?C (100.3 ?F) TempSrc: Oral SpO2: 97% 97% Weight: 78.7 kg (173 lb 8 oz) Height: 1.854 m (6' 1") MEDICAL DECISION MAKING My evaluation of the patient, which was most significant for right eye hypopyon, led my differential to be primarily focused on the following diagnoses: Hypopyon, corneal ulcer, corneal abrasion, endophthalmitis My complete evaluation of the patient including history, physical exam, workup, vital signs, treatment and reassessment revealed: Patient is alert, disoriented, at his baseline per paperwork from rehabilitation [facility]. Presenting for right eye pain. On physical exam patient has right eye hypopyon grade 3. Also notable for right eye corneal ulcer. Ophthalmology consulted and has evaluated the patient and recommended several eyedrops. Patient has corneal ulcer with hypopyon of the right eye. Ophthalmology relays concern about patient's ability to get eyedrops at appropriate administration regimen at [facility] as numerous drops are scheduled every hour. Patient is admitted to medicine for antibiotics and pain control. 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 Admission plan was discussed with ophthalmology, and the patient demonstrates an understanding of the plan. Follow Up: No follow-ups on file. Complexity of Problems Addressed High: I am concerned about a severe complexity problem which was evidenced by the differential, and associated workup to rule out the severe problem: Endophthalmitis, which is a acute problem for this patient as evidenced by history and physical exam. Complexity of Data Review Category 1: (# Of Data Points) Ordered the following tests: CBC, BMP, fungal culture and smear and (External Notes) For improved patient care, I have reviewed external notes from [facility] and found patient's past medical history and baseline mental status. Category 3: (Risk Control Director) I consulted and spoke with ophthalmology about the patient and they stated they will evaluate the patient. Risk of Management (Admission) Patient to be admitted to the hospital. Luis Wood MD Resident, PGY-2 - Emergency Medicine Luis Wood MD Resident 11/06/24 0440 Cosigned by Vincent Miller MD at 11/07/2024 11:52 AM CDT Associated attestation - Vincent Kessler MD - 11/07/2024 11:52 AM CDT Teaching Attending Attestation: The patient was seen and examined by me in the presence of, or jointly with, the resident, and I agree with the History/Exam/Medical Decision Making documented unless further documented below. Additionally, I was directly involved in the management of the patient. Impression: 1. Hypopyon of right eye 2. Corneal ulcer of right eye Vincent Miller MD [id number] [place], [place] PATIENT NAME: MARLINE BLEVINS ADMIT DATE: 04/11/23 ACCOUNT NO: [id number] ROOM [facility] AGE: 68 REPORT TYPE: 360 - QUERY RESPONSE DOCUMENT SEX: M ADMITTING PHYSICIAN:Tariq Martinez MD ATTENDING PHYSICIAN:Tariq Martinez MD Provider Query QUERY TEXT: Condition General 360MD Query related questions should be directed to: [facility] Coding Query Help-line [[Baes on your clinical judgment please clarify the diagnosis SYNCOPE etiology] SYNCOPE DUE TO HYPERLIPIDIMA SYNCOPE DUE TO HYPERTENSION SYNCOPE DUE TO CAD .] The patient's Clinical Indicators include: Medical Reason: 1.Syncope and collapse-ADT Free Text HPI Notes: Mr. Blevins presented via EMS after syncope at work. Patient was at work this morning, he started feeling lightheaded, and all of a sudden he passed out.-ED PHYSICIAN RECORD 04/11/2023 Primary Impression: Syncope and collapse-ED PHYSICIAN RECORD 04/11/2023 Options provided: -- Respond - Create new note now -- Dismiss - Not applicable / Not valid -- Dismiss - Clinically unable to determine / Unknown -- Assign to another provider QUERY RESPONSE: Provider dismissed this query because it was not applicable to the patient or not a valid query. patient was never seen by [facility] please dont waste our time Query created by: Denny Lopez on 04/14/2023 4:43 AM at 1208 PATIENT NAME: MARLINE BLEVINS 07:45:00 [facility] OR A [facility] OF [facility] EMERGENCY PROVIDER REPORT REPORT#:[id number] REPORT STATUS: Signed DATE:04/11/23 TIME: 744 PATIENT: MARLINE BLEVINS UNIT #: [id number] [facility] AGE: 68 SEX: M PCP PHYS: Xavier Gray MD SERVICE AUTHOR: Reese Bettencourt MD * ALL edits or amendments must be made on the electronic/computer document * HPI-Syncope Free Text HPI Notes Free Text HPI Notes Mr. Blevins presented via EMS after syncope at work. Patient was at work this morning, he started feeling lightheaded, and all of a sudden he passed out. Episode lasted for few seconds and came around with no alteration of mental status, and no amnesia. He reports no history of seizure. No injury from the syncope. His boss called EMS to bring him in. Patient tells me he had 2 syncopal episodes in the past. He reports no chest pain, no palpitation, no irregular heartbeat prior to passing out. His past medical history includes heavy smoking, renal artery disease status post CABG, hypertension, hyperlipidemia, noncompliance with medication, has not seen a physician for a long time. Patient arrived at alert and oriented x 3, pale looking, clammy, blood pressure systolic in the 80s, normalized with first half liter fluid bolus. General Confirmed Patient Yes Patient Type New patient Initial Greet Date/Time 04/11/23 0737 Assumed Care at Time 0737 Presentation Chief Complaint Collapsed suddenly )( Onset Occurred Sudden Risk-Syncope Risk Stratification Manjit Coma Score: Copyright [facility] [facility] Copyright [facility] Eye opening: (4) Spontaneous Verbal response: (5) Oriented Best motor response: (6) Obeys commands )( Coronary Artery Disease Risk factors reviewed )( Thoracic Aortic Dissection Risk factors reviewed Subarachnoid Hemorrhage Risk factors reviewed )( Pulmonary Embolism Risk factors reviewed Review of Systems Focused Review of Systems Constitutional Denies: Chills, Fatigue, Fever, Lethargy, Malaise, Recent wt loss, Weakness - generalized. Eyes Denies: Eye pain bilat, Redness bilat, Visual loss bilat, Yellow bilat. Ears/Nose/Throat Denies: Nasal congestion, Sinus problem, Sore throat, Voice change. Respiratory Denies: Cough, non-productive, Cough, productive, Dyspnea on exertion, Hemoptysis, Parox nocturnal dyspnea, Pleuritic pain, Shortness of breath, Wheezing. Cardiovascular Denies: Chest pain, Dyspnea on exertion, Edema, Orthopnea, Palpitations, Parox nocturnal dyspnea, Syncope. GI Denies: Abdominal pain, Diarrhea, Nausea, Vomiting. Musculoskeletal Denies: Back pain, Extremity pain. Skin Denies: Diaphoresis, Rash. Neurologic Reports: Dizziness, Lightheaded, Syncope. Denies: Confusion, Headache, Seizure. Psychiatric Denies: Anxiety, Depression. Past Medical History - Adult Stated Complaint passed out. Allergies Coded Allergies: No Known Allergies (01/23/16) Past Medical History: Reports: Coronary artery disease, Hypertension. Denies: Diabetes mellitus. Past Surgical History: Reports: CABG. Physical Exam Vital Signs Vital Signs First Documented: Result Date Time Pulse Ox 100 04/11 0737 B/P 83/51 04/11 0737 B/P Mean 61 04/11 0737 O2 Delivery Room air 04/11 0737 Temp 36.3 04/11 0737 Pulse 56 04/11 0737 Resp 14 04/11 0737 Last Documented: Result Date Time Pulse Ox 100 04/11 1000 B/P 129/78 04/11 1000 B/P Mean 95 04/11 1000 Pulse 66 04/11 1000 O2 Delivery Room air 04/11 0737 Temp 36.3 04/11 0737 Resp 14 04/11 0737 Review of Vital Signs Reviewed, Hypotensive on arrival, normalized with fluids Focused PE General/Const General/Const Awake, Alert, Well appearing MS Head Head Normocephalic Eyes Eyes PERRL, EOMI, Conjunctiva NL Ears/Nose/Throat Ears/Nose/Throat Airway patent, Mucous membranes moist, Pharynx NL MS Neck Neck Supple, Full range of motion, No swelling, Non-tender Resp/Chest Respiratory/Chest Breath sounds NL, Breath sounds = bilat, No respiratory distress, No rales, No rhonchi, No wheezing Cardiovascular Cardiovascular Heart rate NL, Regular rhythm, Heart sounds NL, No murmurs, Cap refill not delayed, Peripheral circulation NL Abdomen/GI Abdomen/GI Soft, Non-tender, No guarding, No rebound MS Back Back Inspection NL, Non-tender, No CVA tenderness MS Lower Extrem Lower Ext/Pelvis/MS Inspection NL, No swelling, Non-tender, No erythema, No deformity, Neurologic intact, Vascular intact, No edema Skin Skin Color NL, Warm, Dry, Turgor NL Neurologic Neurologic Oriented X3, Speech NL, No motor deficits, No sensory deficits, CN II - XII intact, Cerebellar NL Psychiatric Psychiatric Affect NL, Mood NL, Cognitive function NL, Thought content NL Interpretation Diagnostics Lab Results Interpretation Results Laboratory Tests 04/11/23 0755: [Embedded Image Not Available] Laboratory Tests: 04/115 0755 Chemistry Sodium (133 - 145 MMOL/L) 130 L Potassium (3.6 - 5.2 MMOL/L) 3.8 Chloride (100 - 108 MMOL/L) 94 L Carbon Dioxide (22 - 32 MMOL/L) 25 BUN (6 - 20 MG/DL) 4 L Creatinine (0.60 - 1.00 MG/DL) 0.91 Estimated GFR (MDRD) (49 - 113) 93 Glucose (65 - 99 MG/DL) 93 Calcium (8.7 - 10.5 MG/DL) 8.6 L Magnesium (1.8 - 2.4 MG/DL) 1.8 Creatine Kinase (39 - 308 Units/L) 42 Troponin I High Sens (< 76 ng/L) < 4 NT-Pro-B Natriuret Pep (0 - 125 PG/ML) 43 TSH (0.42 - 5.47) 1.83 Coagulation PT (9.6 - 12.3 SECONDS) 10.6 INR 0.91 APTT (22.5 - 35.3 SECONDS) 27.8 D-Dimer Quant (PE/DVT) (0 - 400 D-DU) < 100 Hematology WBC (4.80 - 10.80 x10 3/uL) 7.53 RBC (4.7 - 6.1 x10 6/uL) 4.65 L Hgb (14.0 - 17.0 G/DL) 14.7 Hct (42 - 52 %) 41.8 L MCV (80 - 94 FL) 89.9 MCH (27 - 31 PG) 31.6 H MCHC (33 - 37 G/DL) 35.2 RDW Coeff of Alber (11.5 - 14.5 %) 11.7 Plt Count (150 - 450 x10 3/uL) 366 MPV (7.4 - 10.4 FL) 9.4 Toxicology Serum Alcohol (0 - 10 MG/DL) 13 H Microbiology: Date/Time Procedure - Status Source Growth 04/11 754 Blood Culture - RES BLOOD 01/02 0748 Blood Culture - RES BLOOD Recent Impressions: RADIOLOGY - XR CHEST 1 V 04/11 0755 Report Impression - Status: SIGNED Entered: 04/11/2023 0809 IMPRESSION: Unremarkable frontal chest radiograph. Impression By: [email or web address] - Primo Leggett MD CAT SCAN - CT HEAD/BRAIN W/O CONT 04/11 0925 Report Impression - Status: SIGNED Entered: 04/11/2023 0958 Impression: There is no radiographic evidence of acute intracranial abnormality. Mild ethmoid air cell disease. Location: V1 Impression By: Dez Jensen MD CAT SCAN - CTA CHEST FOR PE 04/11 0933 Report Impression - Status: SIGNED Entered: 04/11/2023 1007 IMPRESSION: 1. No evidence of pulmonary emboli. 2. Emphysematous/fibrotic changes. Site Location: C2 Impression By: [email or web address] - Luis Mendiola MD Re-Evaluation MDM )( Re-Evaluation/Progress #1 )( Re-Eval Status Improved ED Course Medication(s) Ordered Medication(s) Ordered: Diagnostic Agents Sig/Can Start time Last Medication Dose Route Stop Time Status Admin Iopamidol 0 .STK-MED ONE 04/11 0816 DC 04/11 IV 0947 Electrolytic, Caloric, And Jj Sig/Can Start time Last Medication Dose Route Stop Time Status Admin Sodium Chloride 1,000 ML BOLUS ONCE ONE 04/11 0750 AC 04/11 IV 04/15 1149 0745 Patient Discharge Departure Vital Signs/Condition Vital Signs First Documented: Result Date Time Pulse Ox 100 04/11 0737 B/P 83/51 04/11 0737 B/P Mean 61 04/11 0737 O2 Delivery Room air 04/11 0737 Temp 36.3 04/11 0737 Pulse 56 04/11 0737 Resp 14 04/11 0737 Last Documented: Result Date Time Pulse Ox 100 04/11 1000 B/P 129/78 04/11 1000 B/P Mean 95 04/11 1000 Pulse 66 04/11 1000 O2 Delivery Room air 04/11 0737 Temp 36.3 04/11 0737 Resp 14 04/11 0737 All vital signs available at the time of this entry have been reviewed. Condition Stable, Improved Clinical Impression Clinical Impression Primary Impression: Syncope and collapse Secondary Impressions: 1st degree AV block, Bradycardia, Hypotension Time of Impression 1000 Disposition Decision Hospitalize Hosp Physician Name Tariq Martinez MD [facility] Physician Hospitalist Request Time 1033 Request Date 04/11/23 )( Accepts Hospitalization Yes )( Reason for Hospitalization syncope and collapse, hypotension, Bradycardia w 1st AV block Other )( Date 04/11/23 Against Medical Advice Yes Text/Dict Note Patient presented with syncope. He was hypotensive on arrival, slightly bradycardic, had full evaluation in the ED, and admitted to the [facility]. Patient initially agreed to the admission. However, while awaiting transportation to [facility] floor, patient became inpatient, and wanted to go home. Discussed with patient the seriousness of a sudden collapse, and the need for further evaluation. Patient seems to change his mind again to be admitted. Then 15 minutes later, he called the nurse and he asked for AMA form to sign. He signed AMA and left. I updated Dr. Le, the admitting hospitalist and [facility] on patient signing AMA. Discharge/Care Plan Counseled Regarding Diagnosis, Lab results, Imaging studies, Need for admission, Smoking cessation, Alcohol cessation Advance Care Planning Documents Reviewed With patient Code Status Full at 1703 RPT #:[id number] END OF [id number] [place], [place] PATIENT NAME: MARLINE BLEVINS ADMIT DATE: 04/11/23 ACCOUNT NO: [id number] ROOM NO: [facility] AGE: 68 REPORT TYPE: ELECTROCARDIOGRAM SEX: M : 59 ADMITTING PHYSICIAN:Tariq Martinez MD ATTENDING PHYSICIAN:Tariq Martinez MD Order: [id number] Test Reason : Test Date/Time Stamp: MonApr 11 2023 07:39:17 Blood Pressure : / mmHG Vent. Rate : 052 BPM Atrial Rate : 052 BPM P-R Int : 232 ms QRS Dur : 108 ms QT Int : 442 ms P-R-T Axes : 073 -04 066 degrees QTc Int : 411 ms Sinus bradycardia with 1st degree AV block Possible Left atrial enlargement RSR' or QR pattern in V1 suggests right ventricular conduction delay Borderline ECG When compared with ECG of 23-JAN-2016 08:59, RSR' pattern in V1 is now present Confirmed by ZACHARIAH Chisholm, REESE ([id number]), avid editor GAYATRI ENCISO ([id number]) on 09/01/2023 2:00:42 PM Referred By: Reese Bettencourt Confirmed by:REESE BETTENCOURT M.D. at 1400 PATIENT NAME: MARLINE BLEVINS
[2024-11-27] MEDS ORDERED: LORazepam 2 MG/ML VIAL ONE (23:42)
[2024-11-27] MEDS ORDERED: MORPHINE 4 MG/ML SYR ONE (23:43)
[2024-11-27] MEDS ORDERED: ONDANSETRON 4 MG/2 ML VIAL ONE (23:43)
[2024-11-27 23:48] LABS: Absolute Lymphocytes (CBC) 1.2 K/uL (0.7-4.9); Hematocrit 34.2 % (39.6-49.0); Hemoglobin 11.5 g/dL (13.6-17.9); MCH 30.2 pg (27.0-35.0); MCHC 33.6 g/dL (32.0-36.0); MCV 90.0 fL (80-100); MPV 8.3 fL (7.6-11.3); Nucleated RBC Absolute Count 0.0 (0-0); Nucleated Red Blood Cells % 0.0 % (0-0); PT Prothrombin Time 11.9 SECONDS (10-13.0); Protime INR 1.05; RBC Red Blood Cell Count 3.80 M/uL (4.33-5.43); White Blood Count 17.20 thou/uL (4.3-10.9)
[2024-11-28] LABS: ALT/SGPT 35 U/L (16-61); AST/SGOT 14 U/L (15-37); Albumin 3.3 g/dL (3.4-5.0); Albumin/Globulin Ratio 0.9 (1.1-1.8); Alkaline Phosphatase 97 U/L (45-117); Anion Gap 14.2 mEq/L (5.0-15.0); BUN Blood Urea Nitrogen 14 mg/dL (7-18); Globulin 3.5 g/dL (2.3-3.5); Glucose Level 124 mg/dL (74-106); Magnesium 1.9 mg/dL (1.6-2.4); NT PRO-BNP 64 pg/mL (<125); Potassium 4.2 mEq/L (3.5-5.1); Troponin High Sensitivity 4.5 pg/mL (<58.9)
[2024-11-28 00:10] LABS: Bilirubin Indirect, Calculated 0.1 mg/dL (0.2-0.8); Sqamous Epithelial None Seen /HPF (None Seen); Urine Micro Reflex YN NO BILL MICROSCOPIC
--- NOTE | 2024-11-28 01:31 | ER ---
Nurse's Notes [facility] Name: Arsh Blevins Age: 69 yrs Sex: Male : 1955 Arrival Date: 11/27/2024 Time: 23:12 Bed 16 Private MD: Diagnosis: Acute right intertrochanteric femur fracture Presentation: 11/27 23:30 Coronavirus screen: Client denies travel out of the [place] in the last 14 days. Ebola ha1 Screen: No symptoms or risks identified at this time. Initial Sepsis Screen: Does the patient meet any 2 criteria? No. Patient's initial sepsis screen is negative. Does the patient have a suspected source of infection? No. Patient's initial sepsis screen is negative. Risk Assessment: Do you want to hurt yourself or someone else? Patient reports no desire to harm self or others. Onset of symptoms was November 27, 2024. 23:30 Method Of Arrival: EMS: [facility] ha1 23:50 Chief complaint: Patient states: trouble urinating. kj2 23:50 Acuity: BRYCE 3 kj2 Triage Assessment: 23:20 General: see general assessment. kj2 Historical: - Allergies: 11/28 00:19 No Known Allergies; ha1 - PMHx: 11/27 23:48 Anxiety; Cerebrovascular accident; Hypercholesterolemia; Hypertensive disorder; kj2 - PSHx: 23:48 Coronary artery bypass graft; kj2 - Immunization history:: Adult Immunizations unknown. - Infectious Disease History:: Denies. - Family history:: not pertinent. - Social history:: Smoking status: unknown. Screenin:29 [facility] ED Fall Risk Assessment (Adult) History of falling in the last 3 months, ha1 including since admission Yes- physiologic fall (2 pts) Confusion or Disorientation Yes (5 pts) Intoxicated or Sedated No (0 pts) Impaired Gait Yes (1 pt) Mobility Assist Device Used Yes (1 pt) Altered Elimination Yes (1 pt) Score/Fall Risk Level 3 or more points = High Risk Oriented to surroundings, Maintained a safe environment, Educated pt \T\ family on fall prevention, incl call for assistance when getting out of bed, Hourly rounding (assess needs \T\ fall precautionary measures) done. Abuse screen: Denies threats or abuse. Denies injuries from another. Nutritional screening: No deficits noted. Tuberculosis screening: No symptoms or risk factors identified. Assessment: 23:20 General: Appears uncomfortable, Behavior is agitated, restless. Pain:. Neuro: Level of kj2 Consciousness is awake, alert, Oriented to confused. Cardiovascular: Patient's skin is warm and dry. Respiratory: Airway is patent Respiratory effort is unlabored. GI: No signs and/or symptoms were reported involving the gastrointestinal system. : No signs and/or symptoms were reported regarding the genitourinary system. 11/28 00:15 Reassessment: at CT. ha1 00:32 General: Appears uncomfortable, Behavior is anxious. Pain: Unable to use pain scale. ha1 FLACC scale score is 8 out of 10. Neuro: Level of Consciousness is awake, Oriented to person. Cardiovascular: Capillary refill < 3 seconds Patient's skin is warm and dry. Respiratory: Trachea midline Respiratory effort is even, unlabored, Respiratory pattern is regular, symmetrical. GI: No signs and/or symptoms were reported involving the gastrointestinal system. Abdomen is round non-distended. : Urine is clear. Derm: Skin is dry, Skin is normal. Musculoskeletal: Circulation, motion, and sensation intact. Range of motion: limited in right hip. 01:30 Reassessment: Patient and/or family updated on plan of care and expected duration. Pain ha1 level reassessed. 02:00 Reassessment: SPOKE TO PATIENTS SON CHANDA. RECEIVED VERBAL CONSENT TO TRANSFER PATIENT ha1 . [id number]. 02:30 Reassessment: Patient and/or family updated on plan of care and expected duration. Pain ha1 level reassessed. 03:28 Reassessment: NURSE TO NURSE REPORT GIVEN TO RECEIVING NURSE BRAYAN GREENE. ha1 04:02 Reassessment: Patient and/or family updated on plan of care and expected duration. Pain ha1 level reassessed. Vital Signs: 11/27 23:50 BP 127 / 96; Pulse 110; Resp 18; Temp 98; Pulse Ox 99% ; kj2 11/28 00:40 BP 122 / 77; Pulse 99; Resp 18 S; Pulse Ox 99% on R/A; ha1 01:30 BP 120 / 72; Pulse 101; Resp 15 S; Pulse Ox 99% on R/A; ha1 02:00 BP 131 / 74; Pulse 103; Resp 18 S; Pulse Ox 100% on R/A; ha1 03:00 BP 156 / 88; Pulse 110; Resp 18 S; Pulse Ox 99% on R/A; ha1 04:00 BP 147 / 81; Pulse 104; Resp 18 S; Pulse Ox 99% on R/A; ha1 Manjit Coma Score: 01:51 Eye Response: spontaneous(4). Motor Response: localizes pain(5). Verbal Response: sp4 inappropriate words(3). Total: 12. ED Course: 11/27 23:13 Patient arrived in ED. gm2 23:14 Tyler Guzman MD is Attending Physician. sp4 23:15 Arm band placed on right wrist. ha1 23:20 Patient has correct armband on for positive identification. Bed in low position. Side kj2 rails up X2. Provided Education on: call light. 23:28 Porsha Mooney RN is Primary Nurse. kj2 23:28 Inserted saline lock: 20 gauge in left wrist, using aseptic technique. Blood collected. ha1 Flushed with 10 mL NS. 23:52 Triage completed. kj2 11/28 00:00 Report received from BRAYAN Story. ha1 00:58 Head C Spine Mpr Wo Con In Process Unspecified. EDMS 00:58 Chest Abd Pelvis Wo Con In Process Unspecified. EDMS 00:58 Femur Right In Process Unspecified. EDMS 00:58 Chest Single View In Process Unspecified. EDMS 01:34 Initiated transfer with Marci at [facility]. rv1 02:00 Doc to Doc with hospitalist at [facility]. rv1 02:[address] Garrett \T\[address] [facility] Rm 1030. rv1 02:47 Nurse Sarah attempted to call report for Rm 1030 but was told room was not ready. rv1 Called Marci back at the transfer center who said she will check with bed management and call me back. 03:[address] [facility] called back and gave new bed assignment and report number. Pt now rv1 going to Rm 1147. Nurse Sarah notified. 04:02 No provider procedures requiring assistance completed. Patient transferred, IV remains ha1 in place. Administered Medications: 11/27 23:29 Drug: Geodon IM 40 mg IM once Route: IM; Site: right vastus lateralis; kj2 08/21 00:35 Follow up: Response: No adverse reaction; Anxiety decreased ha1 00:40 Drug: Ondansetron IVP 4 mg IVP once; over 2 minutes Route: IVP; Site: left wrist; ha1 01:00 Follow up: Response: No adverse reaction; Marked relief of symptoms ha1 00:42 Drug: morphine IVP or IV 4 mg IVP once over 4 mins Route: IVP; Infused Over: 4 mins; ha1 Site: left wrist; 01:00 Follow up: Response: No adverse reaction; Marked relief of symptoms; Pain is decreased; ha1 RASS: Alert and Calm (0) 00:44 Drug: Ativan IVP 1 mg IVP once Route: IVP; Site: left wrist; ha1 01:00 Follow up: Response: No adverse reaction; Marked relief of symptoms ha1 02:15 Drug: NS 0.9% IV 1000 ml IV at 1000 ml once; to be given as a bolus over 60 minutes ha1 Route: IV; Rate: 1000 ml; Site: left wrist; 04:03 Follow up: Response: No adverse reaction; IV Status: Completed infusion; IV Intake: ha1 1000ml 03:03 Drug: Ketorolac IVP 30 mg IVP once Route: IVP; Site: left wrist; ha1 03:18 Follow up: Response: No adverse reaction; Marked relief of symptoms; Pain is decreased ha1 03:55 Drug: morphine IVP or IV 2 mg IVP once over 4 mins Route: IVP; Infused Over: 4 mins; ha1 Site: left wrist; 04:05 Follow up: Response: No adverse reaction; Marked relief of symptoms ha1 Medication: 11/27 23:50 VIS not applicable for this client. kj2 Intake: 11/28 04:03 IV: 1000ml; Total: 1000ml. ha1 Outcome: 01:31 ER care complete, transfer ordered by MD. jane 04:02 Transferred by ground EMS to [facility], Transfer form completed. ha1 X-rays sent w/ patient. 04:02 Condition: stable 04:02 Instructed on the need for transfer, Demonstrated understanding of instructions, 04:06 Patient left the ED. ha1 Signatures: Dispatcher [employer] Sarah Messina RN RN ha1 Luz Haney rv1 Tyler Guzman MD MD sp4 Ignacia Keane gm2 Porsha Mooney, BRAYAN RN kj2
--- NOTE | 2024-11-28 01:31 | EDPHYS ---
Physician Documentation [facility] Name: Arsh Blevins Age: 69 yrs Sex: Male : 1955 Arrival Date: 11/27/2024 Time: 23:12 Bed 16 Private MD: ED Physician Tyler Guzman HPI: 11/28 01:27 This 69 yrs old Male presents to ER via EMS with complaints of Urinary sp4 Problem. 01:51 63-year-old male with apparent history of recent CVA presents with moderate to severe sp4 agitation associated with right thigh pain. 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 . Patient presents with moderate agitation and is unable to provide any history. Patient had to be given Geodon on arrival secondary to moderate to severe agitation.. Medications include - : Tylenol 500 mg every 6 hours as needed, Norvasc 5 mg daily, aspirin 81 mg daily, Lipitor 40 mg at bedtime, cefdinir 300 mg twice daily, Plavix 75 mg daily, duloxetine 60 mg daily, folic acid 1 mg daily, gabapentin 100 mg twice daily, lidocaine patch apply topically daily as needed,, Cozaar 50 mg twice daily, milk of magnesia 30 mL daily, magnesium oxide 400 mg twice daily, Megace 40 mg twice daily, Ensure Enlive 237 mL twice daily, Protonix 40 mg , potassium 25 mEq daily, Seroquel 25 mg daily, Senokot-S one at bedtime, Flomax 0.4 mg at bedtime, Hytrin 1 mg daily, vitamin B1 100 mg daily. . Historical: - Allergies: 00:19 No Known Allergies; ha1 - PMHx: 11/27 23:48 Anxiety; Cerebrovascular accident; Hypercholesterolemia; Hypertensive disorder; kj2 - PSHx: 23:48 Coronary artery bypass graft; kj2 - Immunization history:: Adult Immunizations unknown. - Infectious Disease History:: Denies. - Family history:: not pertinent. - Social history:: Smoking status: unknown. ROS: 11/28 01:51 Constitutional: Negative for fever, chills, and weight loss, positive for acute sp4 agitation positive for moderate right thigh pain. All other systems are negative, Unable to obtain ROS due to baseline dementia, Exam: 01:51 Constitutional: Frail patient with moderate physical debility, presents with acute sp4 agitation, screaming at the top of his lungs, pointing to the right partially flexed thigh. Full exam had to be done after Geodon administration., There is a right sided chronic appearing hemiparesis from prior CVA. Contracture secondary to right sided hemiparesis. Head/Face: Normocephalic, atraumatic. Eyes: Pupils equal round and reactive to light, extra-ocular motions intact. Lids and lashes normal. Conjunctiva and sclera are not injected. Cornea within normal limits. Periorbital areas with no swelling, redness, or edema. ENT: Nares patent. No nasal discharge, no septal abnormalities noted. Tympanic membranes are normal and external auditory canals are clear. Oropharynx with no redness, Neck: Trachea midline, no thyromegaly or masses palpated, and no cervical lymphadenopathy. Supple, full range of motion without nuchal rigidity, or vertebral point tenderness. Chest/axilla: Normal chest wall appearance and motion. Nontender with no deformity. No lesions are appreciated. Cardiovascular: Regular rate and rhythm with a normal S1 and S2. No gallops, murmurs, or rubs. No pulse deficits. Respiratory: Lungs have equal breath sounds bilaterally, clear to auscultation and percussion. No rales, rhonchi or wheezes noted. No increased work of breathing, no retractions or nasal flaring. Abdomen/GI: Soft, with normal bowel sounds. No distension or tympany. No guarding or rebound. No evidence of tenderness throughout. Back: No spinal tenderness. No costovertebral tenderness. Male : Normal genitalia with no discharge or lesions. Circumcised male. Skin: Warm, dry with normal turgor. Normal color with no rashes, no lesions, and no evidence of cellulitis. MS/ Extremity: Pulses equal, no cyanosis. Peripheral pulses preserved, right partially flexed thigh with severe pain. Patient is refusing to move right thigh. Neuro: Awake and alert, oriented to self and others, otherwise signs of significant dementia, and aphasia, and dysarthria., Chronic appearing right sided hemiparesis, moderate to severe physical debility, movement on the left side is unimpaired. 01:51 ECG was reviewed by the Attending Physician. EKG 0 139, sinus tachycardia at 103. First-degree AV block. Vital Signs: 11/27 23:50 BP 127 / 96; Pulse 110; Resp 18; Temp 98; Pulse Ox 99% ; kj2 11/28 00:40 BP 122 / 77; Pulse 99; Resp 18 S; Pulse Ox 99% on R/A; ha1 01:30 BP 120 / 72; Pulse 101; Resp 15 S; Pulse Ox 99% on R/A; ha1 02:00 BP 131 / 74; Pulse 103; Resp 18 S; Pulse Ox 100% on R/A; ha1 03:00 BP 156 / 88; Pulse 110; Resp 18 S; Pulse Ox 99% on R/A; ha1 04:00 BP 147 / 81; Pulse 104; Resp 18 S; Pulse Ox 99% on R/A; ha1 Manjit Coma Score: 01:51 Eye Response: spontaneous(4). Motor Response: localizes pain(5). Verbal Response: sp4 inappropriate words(3). Total: 12. MDM: 11/27 23:31 Medical Screening Exam initiated sp4 11/28 01:27 ED course: EXAM: CT Head and Cervical Spine Without Intravenous Contrast CLINICAL sp4 HISTORY: The patient is 69 years old and is Male; DEMENTIA TECHNIQUE: Axial computed tomography images of the head/brain and cervical spine without intravenous contrast. Sagittal and coronal reformatted images were created and reviewed. This CT exam was performed using one or more of the following dose reduction techniques: automated exposure control, adjustment of the mA and/or kV according to patient size, and/or use of iterative reconstruction technique. COMPARISON: September 30, 2024 FINDINGS: BRAIN: Continued evolution of the previously demonstrated infarct within the left temporoparietal lobe is noted. There is diffuse cerebral atrophy present. There is patchy hypoattenuation of the deep white matter which is non-specific, but most likely owing to chronic small vessel ischemic change in a patient of this age group. No intracranial hemorrhage, mass effect or midline shift is seen. There are no extra-axial fluid collections. VENTRICLES: Unremarkable. No ventriculomegaly. SKULL: No acute fracture. SINUSES: Unremarkable as visualized. No acute sinusitis. MASTOID AIR CELLS: Unremarkable as visualized. No mastoid effusion. VERTEBRAE: The vertebral body heights and alignment are maintained. No acute fracture. DISCS/SPINAL CANAL/NEURAL FORAMINA: The intervertebral disc spaces are maintained. No spinal canal stenosis. SOFT TISSUES: The soft tissues are normal. LUNG APICES: The lung apices are clear. IMPRESSION: 1. No acute intracranial hemorrhage. Findings suggest continued evolution of the sizable infarct within the left cerebral hemisphere. Consider further evaluation with MRI. 2. No fracture or malalignment of the cervical spine. . ED course: EXAM: CT Chest, Abdomen and Pelvis Without Intravenous Contrast CLINICAL HISTORY: The patient is 69 years old and is Male; DEMENTIA / DISTENDED ABD TECHNIQUE: Axial computed tomography images of the chest, abdomen and pelvis without intravenous contrast. Sagittal and coronal reformatted images were created and reviewed. This CT exam was performed using one or more of the following dose reduction techniques: automated exposure control, adjustment of the mA and/or kV according to patient size, and/or use of iterative reconstruction technique. COMPARISON: No relevant prior studies available. FINDINGS: CHEST: LUNGS AND PLEURAL SPACES: The lungs are hyperinflated. The emphysematous change specifically in the upper lung zones is noted. No lobar consolidation. No effusion or pneumothorax. The tracheobronchial tree is patent. HEART: No cardiomegaly. No pericardial effusion. ABDOMEN: LIVER: The liver is enlarged and homogeneous. GALLBLADDER AND BILE DUCTS: The gallbladder is contracted. PANCREAS: The pancreas is atrophic. No ductal dilation. SPLEEN: Unremarkable. ADRENALS: Unremarkable. No mass. KIDNEYS AND URETERS: No obstructing stones. No hydronephrosis. No perinephric fluid. STOMACH AND BOWEL: The stomach is distended with food contents. The small bowel is normal in caliber. A moderate rectal stool ball is noted. Stool is present throughout the colon. There is no mucosal thickening or evidence of obstruction. PELVIS: APPENDIX: No findings to suggest acute appendicitis. BLADDER: A Beauchamp catheter is present within the bladder which is decompressed. No stones. REPRODUCTIVE: Unremarkable as visualized. CHEST, ABDOMEN and PELVIS: INTRAPERITONEAL SPACE: Unremarkable. No significant fluid collection. No free air. BONES/JOINTS: Evidence of median sternotomy is noted. A right femoral neck fracture with extension into the greater trochanter is present with impaction at the fracture site. There is no other acute fracture of the visualized axial and appendicular skeleton. Chronic vertebral plana at T7-T8 with mild sclerosis is noted. Mild vertebral plana at T4 is also noted. The remaining vertebral body heights and alignment are maintained. SOFT TISSUES: The soft tissues are normal. VASCULATURE: Atherosclerosis of the vasculature is present. The vessels are normal in caliber. No aortic aneurysm. LYMPH NODES: Unremarkable. No enlarged lymph nodes. IMPRESSION: 1. No evidence of solid organ injury on this noncontrasted CT of the chest, abdomen, and pelvis. 2. Right femoral neck fracture with extension into the greater trochanter and impaction at the fracture site. 3. Chronic findings as detailed above. . 01:57 Differential diagnosis: hip fracture, intertrochanteric fracture, femoral neck sp4 fracture, femoral shaft fracture, bursitis, arthritis, strain. Data reviewed: vital signs, nurses notes, EMS record, old medical records, lab test result(s), EKG, radiologic studies, CT scan, plain films. Consideration of Admission/Observation Escalation of care including admission/observation considered. Management of patient was discussed with the following: Director Of Resource Development: Orthopedist at [facility]. ED course: Examinations and CT has revealed acute right intertrochanteric femur fracture. Patient has stable for transfer to [facility]. No orthopedist on-call here today. [facility] orthopedist has accepted the patient.. 02:41 ED course: EXAM: XR Right Femur, 2 Views CLINICAL HISTORY: The patient is 69 years old sp4 and is Male; FALL TECHNIQUE: Frontal and lateral views of the right femur. COMPARISON: CT performed the same day. FINDINGS: BONES/JOINTS: The bones are diffusely osteopenic. A right femoral neck fracture with extension into the intertrochanteric region is present. Impaction at the fracture site is present. No dislocation. SOFT TISSUES: Unremarkable. VASCULATURE: Extensive atherosclerosis of the vasculature is noted. IMPRESSION: Impacted right femoral neck fracture with extension into the intertrochanteric region. . ED course: EXAM: XR Chest, 1 View CLINICAL HISTORY: The patient is 69 years old and is Male; FEMUR FX TECHNIQUE: Frontal view of the chest. COMPARISON: No relevant prior studies available. FINDINGS: Lungs: Prominent interstitial markings. Peribronchial thickening. No consolidation. Pleural space: Unremarkable. No pneumothorax. Heart: Unremarkable. Mediastinum: Postsurgical changes in the mediastinum. Bones/joints: No acute findings. IMPRESSION: Prominent interstitial markings. Peribronchial thickening.. 11/28 00:57 Order name: Basic Metabolic Panel; Complete Time: 01:31 EDMS 11/28 00:57 Order name: Liver (Hepatic) Function; Complete Time: :31 EDMS 11/28 00:57 Order name: Troponin High Sensitivity; Complete Time: : EDMS 11/28 00:57 Order name: NT PRO-BNP; Complete Time: 01:31 EDMS 11/28 00:57 Order name: Magnesium; Complete Time: : EDMS 11/28 00:57 Order name: CBC with Automated Diff; Complete Time: 01:50 EDMS 11/28 00:57 Order name: Protime (+INR); Complete Time: : EDMS 11/28 00:57 Order name: UA W/Microscopic; Complete Time: : EDMS 11/28 00:58 Order name: Manual Differential; Complete Time: 01:50 EDMS 11/27 23:15 Order name: XRAY Chest (1 view) sp4 11/27 23:31 Order name: Femur Right XRAY sp4 11/28 00:57 Order name: Head C Spine Mpr Wo Con EDMS 11/28 00:57 Order name: Chest Abd Pelvis Wo Con EDMS 11/28 00:58 Order name: Femur Right EDMS 11/28 00:58 Order name: Chest Single View EDMS 11/27 23:15 Order name: EKG; Complete Time: 00:58 sp4 11/27 23:15 Order name: Cardiac monitoring; Complete Time: 01:46 sp4 11/27 23:15 Order name: EKG - Nurse/Tech; Complete Time: 01:46 sp4 11/27 23:15 Order name: IV Saline Lock; Complete Time: 23:27 sp4 11/27 23:15 Order name: Labs collected and sent; Complete Time: 23:28 sp4 11/27 23:15 Order name: O2 Per Protocol; Complete Time: 23:28 sp4 11/27 23:15 Order name: O2 Sat Monitoring; Complete Time: 23:28 sp4 11/27 23:15 Order name: Beauchamp; Complete Time: 23:27 sp4 EC:39 Rate is 103 beats/min. Rhythm is regular, Sinus tachycardia. QRS [place] is Normal. [place] sp4 interval is prolonged. QRS interval is normal. QT interval is normal. No Q waves. T waves are Normal. No ST changes noted. Clinical impression: No evidence of ischemia. Interpreted by me. Reviewed by me. Administered Medications: 11/27 23:29 Drug: Geodon IM 40 mg IM once Route: IM; Site: right vastus lateralis; kj2 11/28 00:35 Follow up: Response: No adverse reaction; Anxiety decreased ha1 00:40 Drug: Ondansetron IVP 4 mg IVP once; over 2 minutes Route: IVP; Site: left wrist; ha1 01:00 Follow up: Response: No adverse reaction; Marked relief of symptoms ha1 00:42 Drug: morphine IVP or IV 4 mg IVP once over 4 mins Route: IVP; Infused Over: 4 mins; ha1 Site: left wrist; 01:00 Follow up: Response: No adverse reaction; Marked relief of symptoms; Pain is decreased; ha1 RASS: Alert and Calm (0) 00:44 Drug: Ativan IVP 1 mg IVP once Route: IVP; Site: left wrist; ha1 01:00 Follow up: Response: No adverse reaction; Marked relief of symptoms ha1 02:15 Drug: NS 0.9% IV 1000 ml IV at 1000 ml once; to be given as a bolus over 60 minutes ha1 Route: IV; Rate: 1000 ml; Site: left wrist; 04:03 Follow up: Response: No adverse reaction; IV Status: Completed infusion; IV Intake: ha1 1000ml 03:03 Drug: Ketorolac IVP 30 mg IVP once Route: IVP; Site: left wrist; ha1 03:18 Follow up: Response: No adverse reaction; Marked relief of symptoms; Pain is decreased ha1 03:55 Drug: morphine IVP or IV 2 mg IVP once over 4 mins Route: IVP; Infused Over: 4 mins; ha1 Site: left wrist; 04:05 Follow up: Response: No adverse reaction; Marked relief of symptoms ha1 Disposition Summary: 11/28/24 01:31 Transfer Ordered Notes: Transfer Location: [facility] sp4 Reason: Higher level of care sp4 Condition: Stable sp4 Problem: new sp4 Symptoms: have improved sp4 Accepting Physician: [facility]'s attending orthopedist(11/28/24 04:06) ha1 Diagnosis - Acute right intertrochanteric femur fracture sp4 Forms: - Medication Reconciliation Form sp4 - SBAR form sp4 Signatures: Dispatcher [employer] EDMS Sarah Taylor, RN RN ha1 Tyler Guzman MD MD sp4 Porsha Mooney RN RN kj2 Corrections: (The following items were deleted from the chart) 01:04 00:58 Chest Abdomen Pelvis Wo Con+CT.RAD.BRZ ordered. EDMS EDMS 01:04 00:58 Head C Spine MPR Wo Con+CT.RAD.BRZ ordered. EDMS EDMS 01:11 00:58 BASIC METABOLIC PANEL+C.LAB.BRZ ordered. EDMS EDMS 01: 00:58 CBC+H.LAB.BRZ ordered. EDMS EDMS 01: 00:58 HEPATIC FUNCTION+C.LAB.BRZ ordered. EDMS EDMS 01:11 00:58 MAGNESIUM+C.LAB.BRZ ordered. EDMS EDMS 01:11 00:58 PROBNP+C.LAB.BRZ ordered. EDMS EDMS 01: 00:58 PROTIME (+INR)+COAG.LAB.BRZ ordered. EDMS EDMS 01:11 00:58 Troponin High Sensitivity+C.LAB.BRZ ordered. EDMS EDMS 01:11 00:58 UA W/ Microscopic+U.LAB.BRZ ordered. EDMS EDMS 02:25 02:10 Chest For PE Angio+CT.RAD.BRZ ordered. EDMS EDMS 04:06 01:31 [facility] attending orthopedist sp4 ha1
[2024-11-28 01:47] LABS: Differential Total Cells Count 100; Segmented Neutrophils 70 % (40-80)
[2024-11-28 01:48] LABS: Blood Morphology Comment NOT SEEN (NOT SEEN)
--- NOTE | 2024-11-28 01:49 | RAD REPORT ---
EXAM: CT Head and Cervical Spine Without Intravenous Contrast CLINICAL HISTORY: The patient is 69 years old and is Male; DEMENTIA TECHNIQUE: Axial computed tomography images of the head/brain and cervical spine without intravenous contrast. Sagittal and coronal reformatted images were created and reviewed. This CT exam was performed using one or more of the following dose reduction techniques: automated exposure control, adjustmen t of the mA and/or kV according to patient size, and/or use of iterative reconstruction technique. COMPARISON: September 30, 2024 FINDINGS: BRAIN: Continued evolution of the previously demonstrated infarct within the left temporoparietal lobe is noted. There is diffuse cerebral atrophy present. There is patchy hypoattenuation of the deep white matter which is non-specific, but most likely owing to chronic small vessel ischemic bautista e in a patient of this age group. No intracranial hemorrhage, mass effect or midline shift is seen. There are no extra-axial fluid collections. VENTRICLES: Unremarkable. No ventriculomegaly. SKULL: No acute fracture. SINUSES: Unremarkable as visualized. No acute sinusitis. MASTOID AIR CELLS: Unremarkable as visualized. No mastoid effusion. VERTEBRAE: The vertebral body heights and alignment are maintained. No acute fracture. DISCS/SPINAL CANAL/NEURAL FORAMINA: The intervertebral disc spaces are maintained. No spinal jannie l stenosis. SOFT TISSUES: The soft tissues are normal. LUNG APICES: The lung apices are clear. IMPRESSION: 1. No acute intracranial hemorrhage. Findings suggest continued evolution of the sizable infarct wi thin the left cerebral hemisphere. Consider further evaluation with MRI. 2. No fracture or malalignment of the cervical spine. Electronically signed by: Tram Fragoso MD 11/28/2024 01:19 AM T Due to temporary technical issues with the PACS/[employer]ARQ reporting system, reports are being blank d by the in-house radiologist without review as a courtesy to ensure prompt reporting the interpreting radiologist is fully responsible for the content of the report. Transcribed Date/Time: 11/28/2024 1:49 AM
--- NOTE | 2024-11-28 01:50 | RAD REPORT ---
EXAM: CT Chest, Abdomen and Pelvis Without Intravenous Contrast CLINICAL HISTORY: The patient is 69 years old and is Male; DEMENTIA / DISTENDED ABD TECHNIQUE: Axial computed tomography images of the chest, abdomen and pelvis without intravenous contrast. S agittal and coronal reformatted images were created and reviewed. This CT exam was performed using one or more of the following dose reduction techniques: automated exposure control, adjustmen t of the mA and/or kV according to patient size, and/or use of iterative reconstruction technique. COMPARISON: No relevant prior studies available. FINDINGS: CHEST: LUNGS AND PLEURAL SPACES: The lungs are hyperinflated. The emphysematous change specifically in t he upper lung zones is noted. No lobar consolidation. No effusion or pneumothorax. The tracheobronchial tree is patent. HEART: No cardiomegaly. No pericardial effusion. ABDOMEN: LIVER: The liver is enlarged and homogeneous. GALLBLADDER AND BILE DUCTS: The gallbladder is contracted. PANCREAS: The pancreas is atrophic. No ductal dilation. SPLEEN: Unremarkable. ADRENALS: Unremarkable. No mass. KIDNEYS AND URETERS: No obstructing stones. No hydronephrosis. No perinephric fluid. STOMACH AND BOWEL: The stomach is distended with food contents. The small bowel is normal in lucía ngozi. A moderate rectal stool ball is noted. Stool is present throughout the colon. There is no mucosal thickening or evidence of obstruction. PELVIS: APPENDIX: No findings to suggest acute appendicitis. BLADDER: A Beauchamp catheter is present within the bladder which is decompressed. No stones. REPRODUCTIVE: Unremarkable as visualized. CHEST, ABDOMEN and PELVIS: INTRAPERITONEAL SPACE: Unremarkable. No significant fluid collection. No free air. BONES/JOINTS: Evidence of median sternotomy is noted. A right femoral neck fracture with extens ion into the greater trochanter is present with impaction at the fracture site. There is no other acute fracture of the visualized axial and appendicular skeleton. Chronic vertebral plana at T7-T8 wi th mild sclerosis is noted. Mild vertebral plana at T4 is also noted. The remaining vertebral body heights and alignment are maintained. SOFT TISSUES: The soft tissues are normal. VASCULATURE: Atherosclerosis of the vasculature is present. The vessels are normal in caliber. No aortic aneurysm. LYMPH NODES: Unremarkable. No enlarged lymph nodes. IMPRESSION: 1. No evidence of solid organ injury on this noncontrasted CT of the chest, abdomen, and pelvis. 2. Right femoral neck fracture with extension into the greater trochanter and impaction at the [facility] ture site. 3. Chronic findings as detailed above. Electronically signed by: Tram Fragoso MD 11/28/2024 01:23 AM CDT Due to temporary technical issues with the PACS/[employer] reporting system, reports are being blank d by the in-house radiologist without review as a courtesy to ensure prompt reporting the interpreting radiologist is fully responsible for the content of the report. Transcribed Date/Time: 11/28/2024 1:49 AM
[2024-11-28] MEDS ORDERED: KETOROLAC 30 MG/ML INJ ONE (02:46)
[2024-11-28] MEDS ORDERED: NA CHLORIDE 0.9% 1,000 ML ONE (02:46)
[2024-11-28] MEDS ORDERED: MORPHINE 2 MG/ML SYR ONE (03:43)
--- NOTE | 2024-11-28 06:31 | RAD REPORT ---
EXAM: XR Right Femur, 2 Views CLINICAL HISTORY: The patient is 69 years old and is Male; FALL TECHNIQUE: Frontal and lateral views of the right femur. COMPARISON: CT performed the same day. FINDINGS: BONES/JOINTS: The bones are diffusely osteopenic. A right femoral neck fracture with extension in to the intertrochanteric region is present. Impaction at the fracture site is present. No dislocation. SOFT TISSUES: Unremarkable. VASCULATURE: Extensive atherosclerosis of the vasculature is noted. IMPRESSION: Impacted right femoral neck fracture with extension into the intertrochanteric region. Electronically signed by: Tram Fragoso MD 11/28/2024 02:07 AM CDT RP Due to temporary technical issues with the PACS/[employer] reporting system, reports are being blank d by the in-house radiologist without review as a courtesy to ensure prompt reporting. The interpreting radiologist is fully responsible for the content of the report. Transcribed Date/Time: 11/28/2024 6:30 AM
--- NOTE | 2024-11-28 06:31 | RAD REPORT ---
EXAM: XR Chest, 1 View CLINICAL HISTORY: The patient is 69 years old and is Male; FEMUR FX TECHNIQUE: Frontal view of the chest. COMPARISON: No relevant prior studies available. FINDINGS: Lungs: Prominent interstitial markings. Peribronchial thickening. No consolidation. Pleural space: Unremarkable. No pneumothorax. Heart: Unremarkable. Mediastinum: Postsurgical changes in the mediastinum. Bones/joints: No acute findings. IMPRESSION: Prominent interstitial markings. Peribronchial thickening. Electronically signed by: Husam Lin MD 11/28/2024 02:09 AM CDT 8 Due to temporary technical issues with the PACS/[employer] reporting system, reports are being blank d by the in-house radiologist without review as a courtesy to ensure prompt reporting. The interpreting radiologist is fully responsible for the content of the report. Transcribed Date/Time: 11/28/2024 6:31 AM
[2024-11-28 06:50] VITALS: TEMP 98
[2024-11-28 06:55] VITALS: BP 156/88; O2SAT 99
== END 2024-11-28 04:06 | disposition short-term general hospital (02) ==
LOC: ER 23:12
DX: S72.141A Displaced intertrochanteric fracture of right femur, initial encounter for closed fracture (principal); I10 Essential (primary) hypertension; F41.9 Anxiety disorder, unspecified; Z86.73 Personal history of transient ischemic attack (TIA), and cerebral infarction without residual deficits; Z95.1 Presence of aortocoronary bypass graft
CPT/HCPCS: 96361; 93005; 85025; 81001; 80048; 36415; 83735; 85610; 80076; 84484; 83880; 70450; 71250; 72125; 74176; 71045; 73552; 96375; 96372; 96374; 99285; J3486; J2270; J2405; J7030